=== PATIENT | male | born 1990 | race Caucasian/White ===

== ENCOUNTER → 2018-04-12 06:23 | Outpatient (CLI) | payer SELFPAY ==
--- NOTE | 2018-04-12 06:33 | XR_ITS ---
XR chest CHP 1V HISTORY: ITS.REASON: FOR 3 M ORDERING PHYSICIAN: Referral Provider, PATIENT AGE: 27 years COMPARISON: 08/28/2016 FINDINGS: The cardiomediastinal silhouette and pulmonary vascularity are within normal limits. The lungs are clear without infiltrates, suspicious nodules, or pleural effusions. No acute bony abnormalities. There is mild dextroscoliosis of the mid to lower thoracic spine IMPRESSION: Negative chest, no acute finding Mild mid thoracic scoliosis not significantly changed
== END ==
DX: Z02.9 Encounter for administrative examinations, unspecified (principal)
CPT/HCPCS: 71045

== ENCOUNTER → 2019-03-05 14:16 | Outpatient (CLI) | payer BC, SELFPAY ==
[2019-03-05 14:54] LABS: Basophils # 0.1 K/mm3 (0-0.2); Basophils % 0.8 % (0.1-2.0); Eosinophils # 0.5 K/mm3 (0.0-0.4); Eosinophils % 7.8 % (0.1-12.0); Hematocrit 46.2 % (42.0-52.0); Hemoglobin 14.7 g/dL (14.1-18.0); Lymphocytes # 1.6 K/mm3 (0.7-4.5); Lymphocytes % 24.3 % (10-50); Mean Corpuscular HGB Conc 31.9 g/dL (31.8-35.4); Mean Corpuscular Hemoglobin 25.7 pg (27.0-31.2); Mean Corpuscular Volume 80.6 fl (80-94); Mean Platelet Volume 7.4 fl (7.4-10.4); Monocytes # 0.5 K/mm3 (0.1-1.0); Monocytes % 7.2 % (1.7-9.3); Neutrophils % 59.9 % (37.0-80.0); Platelet Count 265 K/mm3 (142-424); Red Blood Count 5.73 M/mm3 (4.60-6.20); Red Cell Distribution Width 15.6 % (11.5-17.5); White Blood Count 6.7 K/mm3 (4.8-10.8)
[2019-03-05 15:43] LABS: Alanine Aminotransferase 22 U/L (12-78); Albumin Level 3.9 gm/dL (3.4-5.0); Albumin/Globulin Ratio 1.3 (1.1-1.8); Alkaline Phosphatase 90 U/L (46-116); Anion Gap 11.1 mEq/L (5-15); Aspartate Amino Transferase 8 U/L (15-37); Bilirubin,Total 0.2 mg/dL (0.2-1.0); Blood Urea Nitrogen 12 mg/dL (7-18); Carbon Dioxide 29 mmol/L (21.0-32.0); Chloride 103 mmol/L (98-107); Chol/HDL Ratio 3.4 (1-3.5); Cholesterol 154 mg/dL (140-200); Creatinine,Serum 0.82 mg/dL (0.70-1.30); Estimated Glomerular Filt Rate 112 ml/min (>60); GFR (African American) 135 ML/MIN (>60); Globulin 3.1 gm/dl (1.3-3.2); Glucose 114 mg/dL (74-106); HDL Cholesterol 45 mg/dL (27-67); LDL Cholesterol 86 mg/dL (0-130); Potassium 4.1 mmoL/L (3.5-5.1); Sodium 139 mmol/L (136-145); T4 (Thyroxine) 5.1 ug/dl (4.7-13.3); Thyroid Stimulating Hormone 1.62 uIU/ml (0.358-3.740); Triglycerides 116 mg/dL (30-200); VLDL Cholesterol 23 mg/dL (0-40)
[2019-03-07 13:17] LABS: Vitamin D 25 Hydroxy 30.6 ng/mL (30.0-100.0)
== END ==
PROVIDERS: Visit Provider Nurse Practitioner Family
DX: F41.9 Anxiety disorder, unspecified (principal); R45.4 Irritability and anger
CPT/HCPCS: 80053; 80061; 82652; 84436; 84443; 85025

== ENCOUNTER 2020-08-16 11:29 | Emergency (ER) | payer BC, SELFPAY ==
[2020-08-16 12:40] VITALS: BP 144/82; PULSE 76; RESP 19; TEMP 36.8; O2SAT 98; BMI 26.6
--- NOTE | 2020-08-16 12:59 | HMH.EDUTC ---
[facility] [place] Clinical Impression: Exposure to COVID-19 virus Sinusitis Qualifiers: Sinusitis location: unspecified location Chronicity: unspecified Qualified Code(s): J32.9 - Chronic sinusitis, unspecified Disposition: Home, Self-Care Condition on Discharge: Good Instructions: Sinusitis, Sinus Headache, DI for COVID-19 (Suspected or Confirmed ), Coronavirus Disease 2019, Preventing the Spread of Coronavirus Discharge Instructions Additional Instructions: *Monitor Temp, Over the counter Motrin or Tylenol as directed/as needed Tylenol every 4 hours and Motrin every 6 hours (as long as your family doctor has told you that you can take it) for fever or pain. and straight to ER if unable to lower temp less than 101.0 after medication given *Warm salt water gargles may help to soothe the throat *Throat Lozenges *Warm fluids like tea with honey may help to soothe the throat *Sleep elevated *Humidifier/Vaporizer Follow up IMMEDIATELY for new or worsening symptoms or no Noticeable improvement over the next 48-72 hours. 911 for difficulty breathing or swallowing You were tested for today for COVID19 your test result should be back in the next 24-48 hours, you may call to the [facility] to see if your test results are back in the next 48 hours [phone] [facility] hours are 9am-9pm You was given a handout with instructions for Self Quarantine and Self isolation for while you wait on test results and what to do if they are positive If you are positive the Health Dept will be contacting you also Prescriptions: Azithromycin [Z-Devonte 250mg Tab] 250 mg PO DIRECTED #6 tab Transmission Status: Pending to [id number] Referrals: Isatu Cantrell PA [Primary Care Provider] - As needed Forms: Work/School Release Time of Disposition: 13:02 Medical Decision Making - Harrison Inquiry Pt receiving controlled substance: No Harrison was queried for this patient: No Vital Signs: 08/16/20 12:40 Temperature 98.2 F Temperature Source Oral Pulse Rate [Right Brachial] 76 Respiratory Rate 19 Blood Pressure [Right Arm] 144/82 H Blood Pressure Mean [Right Arm] 102 Blood Pressure Source [Right Arm] Automatic Cuff Blood Pressure Position [Right Arm] Sitting 02 Sat by Pulse Oximetry 98 Oxygen Delivery Method Room Air Orders (Tests/Meds): ORDERS Category Date Time Status Covid-19 Nasal PCR ([facility]) Routine Lab 08/16/20 12:44 [place] [facility] [place] - General Stated complaint: Sore throat, soa, headache Time Seen by Provider: 08/16/20 12:59 Mode of Arrival: Ambulatory Source of Information: Patient Limitations: No Limitations Description of Symptoms (Recalled from Triage Doc. by RN): COVID TEST D/T EXPOSURE. C/O RUNNY NOSE AND SORE THROAT HEENT Symptoms (Recalled from RN notes): Yes Resp Symptoms (Recalled from RN notes): No Skin Symptoms (Recalled from RN notes): No MS Symptoms (Recalled from RN notes): No Functional Status (Recalled from RN notes): WNL - History of Present Illness Provider Complaint: Patient states that he has been having sinus pain and pressure, sore throat, and cough along with headache State that he has been around someone that is positive for COVID States that he wasnt sure if he had a sinus infection or COVID - Related Data Previous Rx's Medication Instructions Recorded albuterol sulfate 90 mcg/actuation 1 inh INHALATION QID #8.5 g 10/24/19 aerosol inhaler levocetirizine 5 mg tablet 5 mg PO DAILY #30 tab 04/17/20 fluticasone fur. 100 mcg-umeclid 1 inh INHALATION DAILY #28 each 05/21/20 62.5 mcg-vilant 25 mcg inhalat.powder sulfamethoxazole 800 1 tab PO BID 10 Days #20 tab 06/13/20 mg-trimethoprim 160 mg tablet lamotrigine 100 mg tablet 100 mg PO BID #180 tab 06/24/20 Azithromycin [Z-Devonte 250mg Tab] 250 mg PO DIRECTED #6 tab 08/16/20 Allergies Allergy/AdvReac Type Severity Reaction Status Date / Time No Known Allergies Allergy Verified 04/17/20 09:00 - Worker's Co
[2020-08-16 13:05] VITALS: BP 144/82; PULSE 76; RESP 19; TEMP 36.8; O2SAT 98
== END 2020-08-16 13:08 | disposition home or self-care (01) ==
PROVIDERS: Emergency Provider Nurse Practitioner; PCP Physician Assistant
DX: Z20.822 Contact with and (suspected) exposure to COVID-19 (principal); J32.9 Chronic sinusitis, unspecified; J45.909 Unspecified asthma, uncomplicated; F41.8 Other specified anxiety disorders; F17.210 Nicotine dependence, cigarettes, uncomplicated
CPT/HCPCS: 99202; G0463; U0003

== ENCOUNTER → 2020-08-19 11:23 | Outpatient (CLI) | payer BC, SELFPAY ==
[2020-08-20 11:48] LABS: Covid-19 Nasal PCR Sendout P&C NEGATIVE
== END ==
PROVIDERS: PCP Physician Assistant; Visit Provider Physician Assistant
DX: Z11.52 Encounter for screening for COVID-19 (principal)
CPT/HCPCS: U0004

== ENCOUNTER → 2021-08-04 08:00 | Outpatient (CLI) | payer BC, SELFPAY ==
[2021-08-04 08:35] VITALS: PULSE 77; PULSE 79
--- NOTE | 2021-08-04 09:09 | XR_ITS ---
PROCEDURE: XR CHEST 2V CLINICAL HISTORY: SOA COMPARISON: CR CXR CHEST(2 VIEWS-NOT PORTABLE) from 08/28/2016 CR [id number] XR chest CHP 1V from 04/12/2018 FINDINGS: The cardiomediastinal silhouette and pulmonary vascularity are within normal limits. The lungs are clear without infiltrates, suspicious nodules, or pleural effusions. Minimal midthoracic curvature convex right. Straightening of thoracic kyphosis. The IMPRESSION: No acute findings. Dictated by: Titi Barnard MD 08/04/2021 12:59 Titi Barnard MD in OV 08/04/2021 12:59
== END ==
PROVIDERS: PCP Nurse Practitioner Family; Visit Provider Nurse Practitioner Family
DX: R06.02 Shortness of breath (principal)
CPT/HCPCS: 71046; 94060; 94640; 94727; 94729

== ENCOUNTER → 2021-09-20 11:03 | Outpatient (CLI) | payer BC, SELFPAY ==
[2021-09-20 11:28] LABS: Basophils # 0.1 K/mm3 (0-0.2); Basophils % 1.4 % (0.1-2.0); Eosinophils # 0.6 K/mm3 (0.0-0.4); Eosinophils % 10.1 % (0.1-12.0); Hematocrit 51.1 % (42.0-52.0); Lymphocytes # 1.7 K/mm3 (0.7-4.5); Lymphocytes % 29.1 % (10-50); Mean Corpuscular HGB Conc 33.3 g/dL (31.8-35.4); Mean Corpuscular Hemoglobin 29.6 pg (27.0-31.2); Mean Corpuscular Volume 88.9 fl (80-94); Mean Platelet Volume 7.6 fl (7.4-10.4); Monocytes # 0.4 K/mm3 (0.1-1.0); Monocytes % 6.2 % (1.7-9.3); Neutrophils # 3.1 K/mm3 (1.8-7.8); Neutrophils % 53.1 % (37.0-80.0); Platelet Count 255 K/mm3 (142-424); Red Blood Count 5.75 M/mm3 (4.60-6.20); Red Cell Distribution Width 13.3 % (11.5-17.5); White Blood Count 5.9 K/mm3 (4.8-10.8)
[2021-09-21 12:38] LABS: Alpha-1-Antitrypsin 132 mg/dL (95-164)
[2021-09-24 16:30] LABS: D001-IgE D pteronyssinus 0.75 kU/L (Class II); D002-IgE D farinae 0.42 kU/L (Class I); E072-IgE Mouse Urine 0.69 kU/L (Class II); G002-IgE Bermuda Grass <0.10 kU/L (Class 0); G006-IgE Timothy Grass 1.46 kU/L (Class III); Immunoglobulin E, Total 231 IU/mL (6-495); M001-IgE Penicillium chrysogen 0.24 kU/L (Class 0/I); M002-IgE Cladosporium herbarum 0.16 kU/L (Class 0/I); M003-IgE Aspergillus fumigatus 0.23 kU/L (Class 0/I); M006-IgE Alternaria alternata <0.10 kU/L (Class 0); T001-IgE Maple/Box Elder 0.22 kU/L (Class 0/I); T003-IgE Common Silver Birch <0.10 kU/L (Class 0); T006-IgE Cedar, Mountain <0.10 kU/L (Class 0); T007-IgE Oak, White <0.10 kU/L (Class 0); T008-IgE Elm, American <0.10 kU/L (Class 0); T010-IgE Walnut <0.10 kU/L (Class 0); T011-IgE Maple Leaf Sycamore <0.10 kU/L (Class 0); T014-IgE Cottonwood <0.10 kU/L (Class 0); T015-IgE Ash, White <0.10 kU/L (Class 0); T022-IgE Pecan, Hickory <0.10 kU/L (Class 0); T070-IgE White Mulberry <0.10 kU/L (Class 0); W001-IgE Ragweed, Short 0.51 kU/L (Class I); W011-IgE Thistle, Russian <0.10 kU/L (Class 0); W014-IgE Pigweed, Common <0.10 kU/L (Class 0); W018-IgE Sheep Sorrel <0.10 kU/L (Class 0)
== END ==
PROVIDERS: PCP Emergency Medicine; Visit Provider Internal Medicine Pulmonary Disease
DX: J45.909 Unspecified asthma, uncomplicated (principal); J44.9 Chronic obstructive pulmonary disease, unspecified
CPT/HCPCS: 36415; 82103; 82785; 85025; 86003

== ENCOUNTER 2023-01-29 11:02 | Emergency (ER) | payer BC, SELFPAY ==
[2023-01-29 11:15] VITALS: BP 129/80; PULSE 64; RESP 19; TEMP 36.4; O2SAT 96; BMI 26.3
[2023-01-29 11:22] LABS: Apearance,Urine Clear (Clear); Bilirubin,Urine Negative (Negative); Blood, Urine Negative (Negative); Color,Urine Yellow (Yellow); Glucose,Urine (UA) Negative (Negative); Ketones,Urine Negative (Negative); PH,Urine 6.5 (5.0-8.5); Protein,Urine Negative (Negative); Specific Gravity, Urine 1.025 (1.005-1.030); UTC Leukocyte Esterase,Urine Negative (Negative); UTC Nitrate,Urine Negative (Negative); Urobilinogen,Urine 1 EU/dl (0.2)
[2023-01-29 11:42] VITALS: BP 129/80; PULSE 64; RESP 19; TEMP 36.4; O2SAT 96
--- NOTE | 2023-01-29 11:45 | EXP.UTC ---
Discharge Plan Disposition Patient Disposition: Home, Self-Care Condition: Good Prescriptions Prescriptions: New levofloxacin 500 mg tablet 500 mg PO DAILY Qty: 10 0RF No Action bupropion HCl [Wellbutrin SR] 100 mg tablet sustained-release 12 hr 100 mg PO DAILY Qty: 30 2RF lamotrigine [Lamictal XR] 200 mg tablet extended release 24hr 200 mg PO DAILY Qty: 30 2RF sildenafil [Viagra] 50 mg tablet 50 mg PO DAILY Qty: 30 2RF albuterol sulfate 1.25 mg/3 mL solution for nebulization 1.25 mg IH QID PRN (Reason: shortness of breath or wheezing) Qty: 90 0RF Trelegy Ellipta 100-62.5-25 mcg blister with device See Rx Instructions .ROUTE .COMPLEX Qty: 60 12RF Dose Instruction: INHALE 1 PUFF BY MOUTH EVERY DAY Rx Instructions: INHALE 1 PUFF BY MOUTH EVERY DAY levocetirizine 5 mg tablet See Rx Instructions .ROUTE .COMPLEX Qty: 30 2RF Dose Instruction: TAKE ONE TABLET BY MOUTH EVERY DAY AT BEDTIME Rx Instructions: TAKE ONE TABLET BY MOUTH EVERY DAY AT BEDTIME albuterol sulfate [Ventolin HFA] 90 mcg/actuation HFA aerosol inhaler 2 puff INHALATION Q4-6H PRN (Reason: Asthma ) 90 Days Qty: 8.5 3RF Referrals Follow up/Referrals: Isatu Cantrell PA [Primary Care Provider] - See instructions Michael Bolivar MD [Staff Physician] - See instructions Silas Elliott MD [Referring] - See instructions Activity Restrictions/Add. Instructions Additional Instructions/Restrictions: GO straight to ER if you start experiencing worsening of pain, swelling, discoloration, abdominal pain and severe sudden pain in testicle or any other life threatening symptoms Follow up with your Family Doctor You was given order for Ultra Sound Call in the morning to schedule the procedure and follow up with your Family Doctor as soon as possible to get results and further treatment Follow up with Urology you was given a name and number or you may try to find your own Clinical Impressions Clinical Impression: Pain in right testicle Stand Alone Forms Stand Alone Forms: Work/School Release Instructions Patient Instructions: DI for Epididymitis, DI for Testicular Pain Discharge ED Provider: Jada Vieira [facility] [place] General Stated complaint: swelling in male area Mode of Arrival: Ambulatory Source of Information: Patient Limitations: No Limitations Time Seen by Provider: 01/29/23 11:45 Description of Symptoms (Recalled from Triage Doc. by RN): PATIENT C/O SWELLING AND SOME PAIN TO TESTICLES X 2 DAYS. DENIES ANY PROBLEMS WITH URINATION HEENT Symptoms (Recalled from RN notes): No Resp Symptoms (Recalled from RN notes): No Skin Symptoms (Recalled from RN notes): No MS Symptoms (Recalled from RN notes): No Functional Status (Recalled from RN notes): WNL History of Present Illness Provider Complaint: Patient states that he has been having pain and mild swelling in his right testicle for the last couple of days States that he hasnt had any burning with urination or urinary frequency, hasnt noticed any discharge, denies known injury Denies abdominal pain and denies fever States that area just feels tender and hurts with walking Able to sit comfortably at this time Related Data Previous Rx's Medication Instructions Recorded albuterol sulfate 1.25 mg/3 mL 1.25 mg (3 mL) inhalation QID PRN 03/23/22 solution for nebulization shortness of breath or wheezing #90 mL bupropion HCl 100 mg tablet,12 hr 100 mg PO DAILY #30 ea 06/17/22 sustained-release (Wellbutrin SR) fluticasone fur. 100 mcg-umeclid See Rx Instructions .Route 07/15/22 62.5 mcg-vilant 25 mcg .COMPLEX #60 blisters inhalat.powder (Trelegy Ellipta) lamotrigine 200 mg tablet,extended 200 mg PO DAILY #30 tabs 07/21/22 release 24 hr (Lamictal XR) sildenafil 50 mg tablet (Viagra) 50 mg PO DAILY #30 tabs 07/21/22 levocetirizine 5 mg tablet See Rx Instructions .Route 08/18/22 .COMPLEX #30 tabs albuterol sulfate 90 mcg/actuation 2 p
[2023-02-01 06:54] LABS: Neisseria gonorrhoeae, NAA Negative (Negative)
== END 2023-01-29 12:23 | disposition home or self-care (01) ==
PROVIDERS: Emergency Provider Nurse Practitioner; PCP Physician Assistant
DX: N50.811 Right testicular pain (principal); J44.9 Chronic obstructive pulmonary disease, unspecified; J45.909 Unspecified asthma, uncomplicated; F39 Unspecified mood [affective] disorder; F41.9 Anxiety disorder, unspecified; Z87.891 Personal history of nicotine dependence
CPT/HCPCS: 81003; 87086; 87491; 87591; 99212; 99214; G0463

== ENCOUNTER → 2023-01-30 12:12 | Outpatient (CLI) | payer BC, SELFPAY ==
--- NOTE | 2023-01-30 12:16 | US_ITS ---
FINAL REPORT TECHNIQUE: Ultrasound images of the testicles were obtained bilaterally. Color Doppler images were obtained. CLINICAL HISTORY: rt test pain FINDINGS: The right testicle measures 4.7 cm in length. There is normal blood flow. No testicular mass is seen. The right epididymis is enlarged and heterogeneous . There is a palpable area in the inferior right hemiscrotum corresponding to enlarged epididymal tail and consistent with epididymitis. The left testicle measures 4.9 cm in length. There is no testicular mass. Normal blood flow is identified. The epididymis is enlarged. IMPRESSION: Bilateral epididymitis. Reviewed, Interpreted and Dictated by Jayson Fernandes III, MD Transcribed by Domi Eaton Authenticated and [facility]
== END ==
LOC: RAD 12:13
PROVIDERS: PCP Physician Assistant; Visit Provider Physician Assistant
DX: N50.811 Right testicular pain (principal); N50.89 Other specified disorders of the male genital organs
CPT/HCPCS: 76870

== ENCOUNTER → 2023-03-14 11:26 | Outpatient (CLI) | payer BC, SELFPAY | LOC: COVID.OUT 11:26 | PROVIDERS: PCP Physician Assistant; Visit Provider Emergency Medicine | DX: U07.1 COVID-19 (principal) | CPT/HCPCS: 87635 ==

== ENCOUNTER → 2023-04-12 12:00 | Outpatient (CLI) | payer BC, SELFPAY ==
[2023-04-12 19:17] LABS: Alanine Aminotransferase 26 U/L (12-78); Albumin Level 4.7 g/dl (3.5-5.0); Albumin/Globulin Ratio 1.7 (1.1-1.8); Alkaline Phosphatase 95 U/L (38-126); Aspartate Amino Transferase 25 U/L (17-59); Bilirubin,Total 0.4 mg/dl (0.2-1.3); Blood Urea Nitrogen 12 mg/dl (9-20); Calcium 8.9 mg/dl (8.4-10.2); Carbon Dioxide 25 mmol/L (22.0-30.0); Chloride 102 mmol/L (98-107); Cholesterol 184 mg/dl (140-200); Estimated Glomerular Filt Rate 112 ml/min (>60); GFR (African American) 136 ML/MIN (>60); Globulin 2.8 g/dL (1.3-3.2); Glucose 68 mg/dl (74-100); HDL Cholesterol 46 mg/dl (40-60); Sodium 140 mmol/L (136-145); Total Protein,Serum 7.5 g/dl (6.3-8.2); Triglycerides 190 mg/dl (30-150); VLDL Cholesterol 38 mg/dL (0-40)
[2023-04-12 19:29] LABS: Direct LDL Cholesterol 99.95 mg/dL (100-129)
[2023-04-12 19:40] LABS: 25-OH Vitamin D, Total 44.8 ng/mL (30-100)
[2023-04-12 19:48] LABS: Basophils % 0.6 % (0.1-2.0); Eosinophils # 1.2 K/mm3 (0.0-0.4); Eosinophils % 16.9 % (0.1-12.0); Hematocrit 47.7 % (42.0-52.0); Hemoglobin 16.1 g/dL (14.1-18.0); Lymphocytes # 2.3 K/mm3 (0.7-4.5); Lymphocytes % 32.6 % (10-50); Mean Corpuscular HGB Conc 33.8 g/dL (31.8-35.4); Mean Corpuscular Hemoglobin 29.3 pg (27.0-31.2); Mean Corpuscular Volume 86.7 fl (80-94); Mean Platelet Volume 8.6 fl (7.4-10.4); Monocytes # 0.4 K/mm3 (0.1-1.0); Monocytes % 6.1 % (1.7-9.3); Neutrophils # 3.2 K/mm3 (1.8-7.8); Neutrophils % 43.8 % (37.0-80.0); Platelet Count 220 K/mm3 (142-424); Red Cell Distribution Width 13.2 % (11.5-17.5); Thyroid Stimulating Hormone 1.14 uIU/mL (0.465-4.68); White Blood Count 7.2 K/mm3 (4.8-10.8)
[2023-04-12 20:08] LABS: Vitamin B12 312 pg/mL (239-931)
[2023-04-14 11:08] LABS: Testosterone,Total 201 ng/dL (264-916)
== END ==
LOC: LAB.DROPOF 04-13 00:14
PROVIDERS: PCP Physician Assistant; Visit Provider Physician Assistant
DX: R53.83 Other fatigue (principal); E29.1 Testicular hypofunction
CPT/HCPCS: 80053; 80061; 82306; 82607; 84403; 84443; 85025

== ENCOUNTER 2024-04-24 09:42 | Outpatient (CLI) | payer BC, SELFPAY ==
[2024-04-24 18:34] LABS: Basophils # 0.1 K/mm3 (0-0.2); Basophils % 0.7 % (0.1-2.0); Eosinophils # 0.3 K/mm3 (0.0-0.4); Eosinophils % 2.7 % (0.1-12.0); Hematocrit 52.5 % (42.0-52.0); Hemoglobin 17.4 g/dL (14.1-18.0); Lymphocytes # 1.4 K/mm3 (0.7-4.5); Mean Corpuscular HGB Conc 33.2 g/dL (31.8-35.4); Mean Corpuscular Hemoglobin 29.8 pg (27.0-31.2); Mean Corpuscular Volume 89.8 fl (80-94); Mean Platelet Volume 8.4 fl (7.4-10.4); Monocytes # 0.6 K/mm3 (0.1-1.0); Monocytes % 5.7 % (1.7-9.3); Neutrophils # 8.3 K/mm3 (1.8-7.8); Neutrophils % 77.9 % (37.0-80.0); Platelet Count 251 K/mm3 (142-424); Red Blood Count 5.84 M/mm3 (4.60-6.20); Red Cell Distribution Width 13.9 % (11.5-17.5); White Blood Count 10.6 K/mm3 (4.8-10.8)
[2024-04-24 19:00] LABS: Alanine Aminotransferase 35 U/L (12-78); Albumin Level 4.3 g/dl (3.5-5.0); Albumin/Globulin Ratio 1.4 (1.1-1.8); Alkaline Phosphatase 76 U/L (38-126); Anion Gap 12.4 mEq/L (5-15); Aspartate Amino Transferase 28 U/L (17-59); Bilirubin,Total 0.7 mg/dl (0.2-1.3); Blood Urea Nitrogen 11 mg/dl (9-20); Calcium 9.3 mg/dl (8.4-10.2); Carbon Dioxide 30 mmol/L (22.0-30.0); Chloride 102 mmol/L (98-107); Chol/HDL Ratio 4.8 (1-3.5); Cholesterol 208 mg/dl (140-200); Estimated Glomerular Filt Rate 97 ml/min (>60); GFR (African American) 118 ML/MIN (>60); Globulin 3.1 g/dL (1.3-3.2); Glucose 103 mg/dl (74-100); HDL Cholesterol 43 mg/dl (40-60); Potassium 4.4 mmoL/L (3.5-5.1); Sodium 140 mmol/L (136-145); Total Protein,Serum 7.4 g/dl (6.3-8.2); Triglycerides 126 mg/dl (30-150); VLDL Cholesterol 25 mg/dL (0-40)
[2024-04-24 19:12] LABS: Direct LDL Cholesterol 130.87 mg/dL (100-129)
[2024-04-24 19:25] LABS: 25-OH Vitamin D, Total 34.1 ng/mL (30-100)
[2024-05-04 21:20] LABS: Testosterone, Total, LC/MS 87 ng/dL (.)
== END 2024-04-24 23:59 | disposition home or self-care (01) ==
LOC: LAB.DROPOF 04-25 09:43
PROVIDERS: PCP Nurse Practitioner Family; Visit Provider Nurse Practitioner Family
DX: J44.9 Chronic obstructive pulmonary disease, unspecified (principal)
CPT/HCPCS: 80050; 80053; 80061; 82306; 84403; 84443; 85025

== ENCOUNTER 2024-09-17 16:25 | Outpatient (CLI) | payer BC, SELFPAY ==
[2024-09-19 08:17] LABS: Testosterone,Total 250 ng/dL (264-916)
== END 2024-09-17 23:59 | disposition home or self-care (01) ==
LOC: LAB.DROPOF 09-18 09:40
PROVIDERS: PCP Nurse Practitioner Family; Visit Provider Nurse Practitioner Family
DX: R40.0 Somnolence (principal); R79.89 Other specified abnormal findings of blood chemistry; F52.4 Premature ejaculation
CPT/HCPCS: 84403

== ENCOUNTER 2024-11-26 07:47 | Inpatient (IN) | payer BC, SELFPAY ==
[2024-11-26] VITALS (19 sets, daily range): BP systolic 108–151; BP diastolic 67–96; PULSE 50–90; RESP 13–22; TEMP 36.6–36.8; O2SAT 90–100; BMI 28.8; BMI 28.5
--- NOTE | 2024-11-26 07:48 | ECG_ITS ---
APPROVED REPORT Exam: Resting ECG HR:67 bpm ECG Measurements Heart Rate 67 AXES HI 105 P 46 QRSd 125 QRS 81 QT 358 T 72 QTc 374 Conclusion SINUS RHYTHM WITH SHORT HI INTERVAL MODERATE INTRAVENTRICULAR CONDUCTION DELAY [110+ ms QRS DURATION] EARLY REPOLARIZATION [ST ELEVATION WITH NORMALLY INFLECTED T-WAVE] MODERATE ST DEPRESSION [0.05+ mV ST DEPRESSION] ABNORMAL ECG Inferior lead ST elevation with peaked T waves in the lateral and inferior leads Electronically signed by : TALITA MIRANDA, 11/26/2024 22:21:56
--- NOTE | 2024-11-26 08:02 | PC.NURSE ---
on phone with flory
--- NOTE | 2024-11-26 08:04 | PC.NURSE ---
DR WINTERS AT BEDSIDE
--- NOTE | 2024-11-26 08:05 | ECG_ITS ---
APPROVED REPORT Exam: Resting ECG HR:59 bpm ECG Measurements Heart Rate [address] 153 P 55 QRSd 109 QRS 64 QT 370 T 56 QTc 369 Conclusion SINUS BRADYCARDIA MARKED ST ELEVATION, CONSIDER INFERIOR INJURY [MARKED ST ELEVATION W/O NORMALLY INFLECTED T-WAVE IN II/aVF] ACUTE AL Electronically signed by : TALITA MIRANDA, 11/26/2024 22:21:24
[2024-11-26 08:07] LABS: Basophils % 0.6 % (0.1-2.0); Eosinophils # 0.2 Kmm3 (0.0-0.4); Eosinophils % 2.8 % (0.1-12.0); Hematocrit 47.1 % (42.0-52.0); Hemoglobin 15.9 g/dL (14.1-18.0); Lymphocytes # 1.9 K/mm3 (0.7-4.5); Lymphocytes % 27.8 % (10-50); Mean Corpuscular HGB Conc 33.8 g/dL (31.8-35.4); Mean Corpuscular Hemoglobin 29.3 pg (27.0-31.2); Mean Corpuscular Volume 86.9 fl (80-94); Mean Platelet Volume 9.6 fl (7.4-10.4); Monocytes # 0.9 K/mm3 (0.1-1.0); Monocytes % 12.7 % (1.7-9.3); Neutrophils # 3.8 K/mm3 (1.8-7.8); Neutrophils % 55.8 % (37.0-80.0); Nucleated Red Blood Cells # 0 10^3/uL; Nucleated Red Blood Cells % 0 %; Platelet Count 239 K/mm3 (142-424); Red Blood Count 5.42 M/mm3 (4.60-6.20); Red Cell Distribution Width 12.6 % (11.5-17.5); Red Cell Distribution Width-SD 39.8 fL; White Blood Count 6.8 K/mm3 (4.8-10.8)
--- NOTE | 2024-11-26 08:09 | PC.NURSE ---
PT IN GOWN, GROIN AND WRIST CLIPPED, PT ON ZOLL. CONSENT SIGNED
--- NOTE | 2024-11-26 08:11 | PC.NURSE ---
jonathan molina at bedside at this time.
--- NOTE | 2024-11-26 08:11 | PC.NURSE ---
REGRINDER OPERATOR AT BEDSIDE
--- NOTE | 2024-11-26 08:12 | PC.NURSE ---
pt going to pharmacy laboratory technician via stretcher with joy leavitt.
[2024-11-26] MEDS: ASPIRIN 81MG CHEWABLE TABLET 324 MG PO (08:13)
--- NOTE | 2024-11-26 08:14 | IR_ITS ---
APPROVED REPORT Patient Location: Outpatient PROCEDURES Selective coronary angiogram INDICATION Acute ST elevation myocardial infarction Informed consent was obtained prior to the procedure. COMPLICATIONS none Estimated Blood Loss: less than 10ml TECHNIQUE One percent lidocaine used to anesthetize the right anterior aspect of the wrist. The right radial artery was accessed via the Seldinger technique. A 6 Lebanese sheath was placed in the right radial artery. 2.5 mg of Verapamil, 800 mcg of nitroglycerin, 1mg Lidocaine and 5000 U Heparin were given through the arterial sheath. The 6 Lebanese JL 3 guide catheter was also used to perform left heart catheterization, left ventriculogram and selective coronary angiogram. At the end of the procedure the sheath was removed good hemostasis was achieved using Traclet band, patient was transferred to the postop holding area in stable condition. ANGIOGRAPHIC RESULTS The left main artery Normal The left anterior descending artery Normal The circumflex artery Normal The right coronary artery Dominant normal The LANDIN ventriculogram reveals Not performed The left ventricular end-diastolic pressure Not measured IMPRESSION Normal coronary arteries Suspect myocarditis/pericarditis PLAN 1. Obtain formal echocardiogram 2. Recommend admission with telemetry monitoring overnight 3. Supportive care Electronically signed by : Nirmal Salinas MD 11/26/2024 08:51:04
--- NOTE | 2024-11-26 08:15 | CA_ITS ---
APPROVED REPORT EXAM: Limited 2D Echocardiogram Senior Systems Architect: Shanti Leon, RCS, RVS Ht: 5 ft 9 in Wt: 195lbs BSA: 2.04 BP: 140/90 mmHg Rhythm: 90 Indications: STEMI, ST elevation, CP, Arm pain 2D Dimensions IVSd 0.96 cm LVEF (Visual) 53.00 % PWd 0.96 cm LVDd 5.11 cm LVDs 3.71 cm M-Mode Dimensions LVDd 5.11 cm (3.5-5.7) LVDs 3.71 cm (3.5-5.7) IVSd 0.96 cm (0.6-1.1) PWd 0.96 cm (0.6-1.1) FS 27.40% Other Information Study Quality: Technically Difficult Conclusion This is a limited TTE to evaluate for LV systolic function. Limited windows are obtained. Technically difficult study. The left ventricle is normal in size. There is normal LV wall thickness. There is low normal LV systolic function. LVEF is 50%. There is no evidence of pericardial effusion. Electronically signed by : Annamaria Shetty MD 11/26/2024 10:27:45
[2024-11-26 08:16] LABS: Alanine Aminotransferase 34 U/L (12-78); Albumin Level 4.2 g/dl (3.5-5.0); Albumin/Globulin Ratio 1.3 (1.1-1.8); Alkaline Phosphatase 80 U/L (38-126); Anion Gap 8.2 mEq/L (5-15); Aspartate Amino Transferase 45 U/L (17-59); Bilirubin,Total 0.4 mg/dl (0.2-1.3); Blood Urea Nitrogen 10 mg/dl (9-20); Carbon Dioxide 30 mmol/L (22.0-30.0); Chloride 106 mmol/L (98-107); Creatinine Clearance Estimated 163 mL/min (50-200); Estimated Glomerular Filt Rate 111 ml/min (>60); GFR (African American) 134 ML/MIN (>60); Globulin 3.3 g/dL (1.3-3.2); Glucose 128 mg/dl (74-100); Lipase 40 U/L (23-300); Potassium 4.2 mmoL/L (3.5-5.1); Sodium 140 mmol/L (136-145); Total Protein,Serum 7.5 g/dl (6.3-8.2)
--- NOTE | 2024-11-26 08:16 | PC.NURSE ---
on phone with hospitalist
--- NOTE | 2024-11-26 08:19 | ED_ITS ---
Discharge Plan Disposition Patient Disposition: Admitted Condition: Fair Clinical Impressions Clinical Impression: STEMI (ST elevation myocardial infarction) Qualifiers: Involved coronary artery: unspecified coronary artery Qualified Code(s): I21.3 - ST elevation (STEMI) myocardial infarction of unspecified site Discharge ED Provider: Tila Alejandra HPI General Chief Complaint: Chest Pain Stated Complaint: Chest Pain Time Seen by Provider: 11/26/24 07:52 Mode of Arrival: Ambulatory Source of Information: Patient Description of Symptoms (Recalled from ER Triage Doc. by RN): Patient with the complaint of feeling uncomfortable in his chest that started yesterday. States that it did go away for a brief moment yesterday and was back today. States that he went to the [facility] yesterday for a sore throat and was put on a Zpack. History of Present Illness HPI narrative: This patient is a 34-year-old male with a history of asthma, mood disorder on Lamictal, prior tobacco abuse (smokes when drinks, quit 2 years ago per ) presented to the emergency department for evaluation with concern for chest pain. Patient reports that he had a sore throat yesterday, for which she was evaluated at [facility]. Strep swab was negative, but he was prescribed azithromycin. He notes that yesterday evening at work, he started having some chest tightness/pressure. It went away by the time he got home and he was doing okay until this morning when he got to work. Then, he started having some chest tightness/pressure again. He notes early history of cardiac issues in his family with his dad having triple bypass and heart attack in his 40s. His dad is also a diabetic. He denies any known history of diabetes in himself. No other concerns or complaints such as cough, fever, shortness of breath, abdominal pain, nausea, vomiting, diaphoresis, or presyncope. Related Data Home Medications ?Medication ?Instructions ?Recorded ?Confirmed albuterol sulfate 90 mcg/actuation 2 puff inhalation Q4HP PRN 11/26/24 11/26/24 aerosol inhaler Shortness Of Breath montelukast 10 mg tablet 10 mg PO HS 11/26/24 11/26/24 Previous Rx's ?Medication ?Instructions ?Recorded budesonide 160 mcg-glycopyr 9 2 inh inhalation BID #10.7 grams 07/16/24 mcg-formot 4.8 mcg/actuation HFA inhaler (Breztri Aerosphere) testosterone cypionate 200 mg/mL 200 mg IM Q2W #4 mL 11/13/24 intramuscular oil (Depo-Testosterone) amoxicillin 875 mg tablet 875 mg PO BID 10 days #20 tabs 11/25/24 fluticasone propionate 50 2 spray intranasal DAILY #16 grams 11/25/24 mcg/actuation nasal spray,suspension (Flonase Allergy Relief) Allergies Allergy/AdvReac Type Severity Reaction Status Date / Time No Known Allergies Allergy Verified 11/25/24 15:24 [facility] Disclaimer: The information contained in this section may have been updated after the patient was seen, as this information can be updated by other users. Medical History Pharyngitis Anxiety Tobacco dependence COPD (chronic obstructive pulmonary disease) Mood disorder Asthma Social History (Updated 11/26/24 @ 09:28 by Melina Tanner RN) Smoking Status: Former smoker tobacco type: cigarettes packs per day: 1 alcohol intake: current alcohol intake frequency: holidays/special occasions only substance use type: denies use current occupational status: employed Travel in the last 8 weeks: None household members: family housing: house Have you lived/traveled outside US in past 30 days?: No Contact w/someone who lives/traveled outside US past 30 days?: No Exposure to someone with infectious disease in past 14 days?: No Do you have a fever (greater than 100.4 F or 38 C)?: No Have you tested positive for COVID-19: No Exposed to someone with COVID-19 in past 14 days?: No Do you have a sore throat?: No Do you have a cough?: No Do you have any weakness?: No Do you have any diarrhea?: No Are you experiencing any unusual bleeding?: No Do you have any muscle aches/pain?: No Do you have any abdominal pain?: No Are you experiencing loss of taste or smell?: No Other Medical History Have you received the Flu Vaccine for this season: No Have you received the Pneumonia Vaccine: No ROS Obtained: Yes All systems reviewed & no additional complaints except as documented Physical Exam General General appearance: alert and in no apparent distress Head Head exam: atraumatic and normocephalic Eye Eye exam: Present normal appearance, PERRL and EOMI ENT ENT exam: Present normal exam, normal oropharynx, mucous membranes moist and normal external ear exam Neck Neck exam: Present normal inspection, full ROM and trachea midline; Absent tenderness Chest Chest inspection: Present normal inspection and symmetric chest wall rise; Absent tenderness Respiratory Respiratory exam: Present normal lung sounds bilaterally; Absent respiratory distress, wheezes, stridor or accessory muscle use Cardiovascular Cardiovascular exam: Present regular rate and normal rhythm Abdominal Exam Abdominal exam: Present soft; Absent distention, tenderness or guarding Extremities Exam Extremities exam: Present normal inspection, full ROM and normal capillary refill; Absent tenderness or edema Back Exam Back exam: Present normal inspection and full ROM; Absent tenderness Neurological Exam Neurological exam: Present alert, oriented X3, CN II-XII intact and normal gait; Absent motor sensory deficit Psychiatric Psychiatric exam: Present normal affect and normal mood Skin Skin exam: Present warm and dry HEART Score HEART Score HEART Score assessment performed?: Yes History (anamnesis): Highly suspicious ECG: Significant ST-deviation Age: <45 years Risk factors: No known risk factors Troponin: > 3x normal limit HEART Score: 6 Critical Care Critical Care Time Critical Care Time: Yes Attestation: On 11/26/24, the high probability of a clinically significant, sudden or life threatening deterioration of the following system(s) required my full and direct attention, intervention and personal management. The time I documented below is in addition to time spent performing reported procedures but includes the following listed in this critical care notation. Total Time Total Critical Care Time: 15 Medical Decision Making [place] Inquiry Pt receiving controlled substance: No Vital Signs Vital Signs: 11/26/24 07:51 11/26/24 08:00 11/26/24 08:08 Temperature 98.2 F Temperature Source Oral Pulse Rate 55 L 82 Pulse Rate [Radial] 68 Respiratory Rate 18 13 22 Blood Pressure 134/78 151/74 H Blood Pressure [Right Arm] 140/96 H Blood Pressure Mean [Right Arm] 110 Blood Pressure Source Blood Pressure Source [Right Arm] Automatic Cuff Blood Pressure Position Blood Pressure Position [Right Arm] Sitting 02 Sat by Pulse Oximetry 99 100 98 Oxygen Delivery Method Room Air Room Air Room Air 11/26/24 08:15 Temperature 98.2 F Temperature Source Oral Pulse Rate 68 Pulse Rate [Radial] Respiratory Rate 18 Blood Pressure 140/96 H Blood Pressure [Right Arm] Blood Pressure Mean [Right Arm] Blood Pressure Source Automatic Cuff Blood Pressure Source [Right Arm] Blood Pressure Position Sitting Blood Pressure Position [Right Arm] 02 Sat by Pulse Oximetry Oxygen Delivery Method Room Air Lab Data Labs: Lab Results 11/26/24 07:55: WBC 6.8, RBC 5.42, Hgb 15.9, Hct 47.1, MCV 86.9, MCH 29.3, MCHC 33.8, RDW 12.6, Plt Count 239, MPV 9.6, Neut % (Auto) 55.8, Lymph % (Auto) 27.8, [place] % (Auto) 12.7 H, Eos % (Auto) 2.8, Baso % (Auto) 0.6, Neut # (Auto) 3.8, Lymph # (Auto) 1.9, [place] # (Auto) 0.9, Eos # (Auto) 0.2, Baso # (Auto) 0.0, ESR 1 11/26/24 07:55: ESR 6, D-Dimer 0.57 H, Sodium 140, Potassium 4.2, Chloride 106, Carbon Dioxide 30, Anion Gap 8.2, BUN 10, Creatinine 0.80, Estimated Creat Clear 163, Estimated GFR 111, Est GFR ( Amer) 134, Glucose 128 H, Calcium 9.0, Total Bilirubin 0.4, AST 45, ALT 34, Alkaline Phosphatase 80, Troponin I 2.86 H, C-Reactive Protein 2.9 11/26/24 07:55: C-Reactive Protein 2.9, Total Protein 7.5, Albumin 4.2, Globulin 3.3 H, Albumin/Globulin Ratio 1.3, Lipase 40, Free T4 1.05, HCV Ab FABIO w/Rflx PCR Qn Negative 11/26/24 07:55 11/26/24 07:55 Response Orders (Tests/Meds): ED MEDICATIONS Generic Name Dose Route Start Last Admin Trade Name Freq PRN Reason Stop Dose Admin Acetaminophen 650 mg 11/26/24 13:43 Acetaminophen 325mg Tab PO 12/26/24 13:42 Q4HP PRN Fever or Mild Pain (1-3) Diazepam 5 mg 11/26/24 08:11 Diazepam 5mg Tablet PO 11/26/24 20:11 ONCE PRN Anxiety Enoxaparin Sodium 40 mg 11/27/24 09:00 Enoxaparin 40mg/0.4ml Syringe SUBCUT 12/27/24 08:59 DAILY DINO Fentanyl Citrate 50 mcg 11/26/24 08:11 11/26/24 08:49 Fentanyl 100mcg/2ml Vial IV 11/26/24 20:11 100 mcg Q3MINP PRN Administration Sedation Fentanyl Citrate 25 mcg 11/26/24 08:11 Fentanyl 100mcg/2ml Vial IV 11/26/24 20:11 Q3MINP PRN Sedation Flumazenil 0.2 mg 11/26/24 08:11 Flumazenil 0.1mg/Ml 5ml Vial IV 11/26/24 20:11 NEEDED PRN Sedation Sodium Chloride 1,000 mls @ 25 mls/hr 11/26/24 08:15 11/26/24 08:29 Sod Chloride 0.9% 500ml Bag IV 11/27/24 08:11 25 mls/hr .Q25H DINO Administration Lorazepam 1 mg 11/26/24 08:11 Lorazepam 2mg/Ml Vial IV 11/26/24 20:11 ONCE PRN Anxiety Midazolam HCl 1 mg 11/26/24 08:11 Midazolam 2mg/2ml Vial IV 11/26/24 20:11 Q3MINP PRN Sedation Midazolam HCl 1 mg 11/26/24 08:11 11/26/24 08:49 Midazolam Hcl 1mg/Ml 5ml Vial IV 11/26/24 20:11 5 mg Q3MINP PRN Administration Sedation Naloxone HCl 0.4 mg 11/26/24 08:11 Naloxone 0.4mg/Ml Vial IV 11/26/24 20:11 Q5MINP PRN Decreased Respirations Ondansetron HCl 4 mg 11/26/24 08:11 Ondansetron 4mg/2ml Vial IV 11/26/24 20:11 NEEDED PRN Nausea Ondansetron HCl 4 mg 11/26/24 13:43 Ondansetron 4mg/2ml Vial IV 12/26/24 13:42 Q8HP PRN Nausea Promethazine HCl 25 mg 11/26/24 08:11 Promethazine Hcl 25mg/Ml 1ml Vial IV 11/26/24 20:11 NEEDED PRN Nausea And Vomiting Sodium Chloride 10 ml 11/26/24 08:11 Sodium Chloride 0.9% 10ml Vial IV 12/26/24 08:10 NEEDED PRN to Dilute Lorazepam inj Discontinued Medications Generic Name Dose Route Start Last Admin Trade Name Daveq PRN Reason Stop Dose Admin Aspirin 324 mg 11/26/24 08:03 11/26/24 08:13 Aspirin 81mg Chewable Tablet PO 11/26/24 08:04 324 mg ONCE ONE Administration Diphenhydramine HCl 50 mg 11/26/24 08:11 11/26/24 08:25 Diphenhydramine 50mg/Ml Vial IV 11/26/24 08:12 50 mg ONCE ONE Administration Heparin Sodium (Porcine) 5,000 unit 11/26/24 08:11 11/26/24 08:26 Heparin 1,000 Units/Ml 10ml Vial (Chemical Sales Representative) IV 11/26/24 12:11 5,000 unit NEEDED PRN Administration Emergency Box Embalmer/Funeral Director Heparin Sodium/Sodium Chloride 3,000 unit 11/26/24 08:11 11/26/24 08:29 Heparin 1,000 Units/500ml Ns (Chemical Sales Representative) IV 11/26/24 08:12 3,000 unit ONCE ONE Administration Hydralazine HCl 20 mg 11/26/24 08:11 Hydralazine 20mg/Ml Vial IV 11/26/24 12:11 ONCE PRN sbp>160 Adenosine 180 mg/ Sodium 90 mls @ 477.635 mls/hr 11/26/24 08:11 Chloride IV 11/26/24 12:11 ONCE PRN fractional flow reserve 180 MCG/KG/MIN Adenosine 90 mg/ Sodium 90 mls @ 955.271 mls/hr 11/26/24 08:11 Chloride IV 11/26/24 12:11 ONCE PRN fractional flow reserve 180 MCG/KG/MIN Iopamidol 40 ml 11/26/24 09:30 11/26/24 09:31 Iopamidol-370 (76%);100ml Bottle IV 11/26/24 09:31 40 ml ONCE ONE Administration Labetalol HCl 20 mg 11/26/24 08:11 Labetalol 20mg/4ml Syringe IV 11/26/24 12:11 ONCE PRN sbp>160 Lidocaine HCl 10 ml 11/26/24 08:11 11/26/24 08:29 Lidocaine 1% 10ml Mdv IJ 11/26/24 08:12 10 ml ONCE ONE Administration Lidocaine HCl 10 ml 11/26/24 08:11 11/26/24 09:41 Lidocaine 1% 5ml Pf Vial IJ 11/26/24 08:12 Not Given ONCE ONE Morphine Sulfate 4 mg 11/26/24 08:11 11/26/24 09:44 Morphine 4mg/Ml Syringe IV 11/26/24 08:12 Not Given ONCE ONE Nitroglycerin 800 mcg 11/26/24 08:11 11/26/24 08:29 Nitroglycerin 800mcg/8ml Syr (Chemical Sales Representative) IA 11/26/24 12:11 800 mcg NEEDED PRN Administration Emergency Box Embalmer/Funeral Director Protamine Sulfate 50 mg 11/26/24 08:11 Protamine Sulfate 50mg/5ml Vial (Chemical Sales Representative) IV 11/26/24 12:11 ONCE PRN act>200 Sodium Chloride 25 ml 11/26/24 08:11 11/26/24 09:41 Sodium Chloride 0.9% 25ml Bag IV 11/26/24 08:12 Not Given ONCE ONE Verapamil HCl 2.5 mg 11/26/24 08:11 11/26/24 08:26 Verapamil 2.5mg/Ml 2ml Vial IV 11/26/24 08:12 2.5 mg ONCE ONE Administration ORDERS Category Date Time Status Cardiology Consult [Consult to Cardiology] [CONS] Cons 11/26/24 08:03 Active Routine CA echo limited Stat Exams 11/26/24 08:15 Completed CRP [C-Reactive Protein] Stat Lab 11/26/24 07:55 Completed Complete Blood Count Auto Diff Stat Lab 11/26/24 07:55 Completed Comprehensive Metabolic Panel Stat Lab 11/26/24 07:55 Completed D-Dimer Stat Lab 11/26/24 07:55 Completed ESR [Erythrocyte Sedimentation Rate] Stat Lab 11/26/24 07:55 Completed HIV Combo Stat Lab 11/26/24 07:55 Received Hepatitis C Ab Qual. W/ RFX Stat Lab 11/26/24 07:55 Completed Lipase Stat Lab 11/26/24 07:55 Completed Trop I [Troponin I] Stat Lab 11/26/24 07:55 Completed UDS [Drug Screen,Urine] Stat Lab 11/26/24 12:00 Completed ECG Data Tracing #1: Attestation: I reviewed this ECG and interpreted as documented below: ECG Narrative: Normal sinus rhythm with a ventricular to [address] changes concerning for benign early repolarization versus pericarditis/myocarditis, but changes are more pronounced in leads II, III, and aVF. Questionable subtle reciprocal change in aVL, so I did share with Dr. Salinas with cardiology who recommended repeat EKG ECG initial impression date: 11/26/24 ECG initial impression time: 07:59 Tracing #2: Attestation: I reviewed this ECG and interpreted as documented below: ECG Narrative: Sinus bradycardia with a ventricular to [address] elevations in leads II, III, and aVF with concern for STEMI. Normal intervals. Chemical Sales Representative activated ECG initial impression date: 11/26/24 ECG initial impression time: 08:05 MDM Narrative Medical Decision Narrative: In summary, this patient is a 34-year-old male presenting to the Emergency Department for evaluation of chest pain. Differential diagnoses considered include but are not limited to pericarditis, myocarditis, ACS, PE, asthma exacerbation, pneumonia, pleurisy. Ruling out the most morbid conditions drove assessment. It should be noted patient's history includes prior history of tobacco use, history of asthma, mood disorder which may or may not be at goal therapy. He also has family history of early cardiac issues. This complicates all aspects of care by increasing patient's risk for morbidity. I reviewed patient's past medical records and noted PCP evaluations for maintenance health as well as UTC evaluation yesterday as detailed in HPI for sore throat. On exam, the patient is lying in bed in no acute distress. He is mildly hypertensive with systolics in the 140s on initial assessment, but otherwise vital signs are normal. He has no increased work of breathing with normal lung sounds. EKG obtained upon arrival demonstrated ST changes most pronounced in leads II, III, and aVF. I did share this with Dr. Salinas with cardiology who advised that he thought it could be myocarditis versus ischemic change but recommended repeat EKG to further assess. Repeat EKG obtained demonstrates more pronounced ST changes in leads II, III, and aVF. Given this, Chemical Sales Representative was activated. Patient was loaded with aspirin. Heparin and Brilinta were not given in the emergency department per Dr. Salinas's recommendations. Labs were sent which were not resulted at time of transport to the Chemical Sales Representative. He was taken emergently to the Chemical Sales Representative in stable condition. present at bedside and updated with regard to plan of care. I called and discussed the case with the hospitalist for post-cath care.
[2024-11-26 08:21] LABS: C-Reactive Protein 2.9 mg/L (0-4)
[2024-11-26 08:22] LABS: D-Dimer 0.57 ug/mL (0.0-0.5)
[2024-11-26] MEDS: diphenhydrAMINE 50MG/ML VIAL 50 MG IV (08:25)
[2024-11-26] MEDS: HEPARIN 1,000 UNITS/ML 10ML VIAL (CATH LAB) 5000 UNIT IV (08:26)
[2024-11-26] MEDS: VERAPAMIL 2.5MG/ML 2ML VIAL 2.5 MG IV (08:26)
[2024-11-26] MEDS: NITROGLYCERIN 800MCG/8ML SYR (CATH LAB) 800 MCG IA (08:29)
[2024-11-26] MEDS: LIDOCAINE 1% 10ML MDV 10 ML IJ (08:29)
[2024-11-26] MEDS: 0.9 % SODIUM CHLORIDE 500 ML 25 ML IV (08:29)
[2024-11-26] MEDS: HEPARIN 1,000 UNITS/500ML NS (CATH LAB) 3000 UNIT IV (08:29)
[2024-11-26] MEDS: FENTANYL 100MCG/2ML VIAL 50 MCG IV (08:49)
[2024-11-26] MEDS: MIDAZOLAM HCL 1MG/ML 5ML VIAL 1 MG IV (08:49)
--- NOTE | 2024-11-26 08:51 | HMH.PHAINT1 ---
Pharmacy Intervention Comments: MEDICATION RECONCILIATION COMPLETED ON PATIENT USING EXTERNAL FILL HISTORY FROM PHARMACY. -[facility], ÓSCARD
[2024-11-26 08:56] LABS: Troponin I 2.86 ng/ml (0.00-0.034)
[2024-11-26 09:10] LABS: Erythrocyte Sedimentation Rate 1 mm/hr (0-15)
[2024-11-26 09:14] LABS: Hepatitis C Ab Qual. W/ RFX NEGATIVE (Negative)
[2024-11-26] MEDS: IOPAMIDOL-370 (76%);100ML BOTTLE 40 ML IV (09:31)
--- NOTE | 2024-11-26 09:47 | EXP.CARD.CON ---
History of Present Illness History of Present Illness Consult date: 11/26/24 Requesting physician: Regan Phelps Consult reason: chest pain Chief complaint: STEMI Additional Medical History:: 1. Asthma 2. Low testosterone, on replacement 3. Mood disorder A. On lamictal 4. Occasional smoker/drinker, reportedly quit 2022 History of present illness: This patient is a 34-year-old male with a history of asthma, mood disorder on Lamictal, prior tobacco abuse (smokes when drinks, quit 2 years ago per ) presented to the emergency department for evaluation with concern for chest pain. Patient reports that he had a sore throat yesterday, for which she was evaluated at [facility]. Strep swab was negative, but he was prescribed azithromycin. He notes that yesterday evening at work, he started having some chest tightness/pressure. It went away by the time he got home and he was doing okay until this morning when he got to work. Then, he started having some chest tightness/pressure again. He notes early history of cardiac issues in his family with his dad having triple bypass and heart attack in his 40s. His dad is also a diabetic. He denies any known history of diabetes in himself. No other concerns or complaints such as cough, fever, shortness of breath, abdominal pain, nausea, vomiting, diaphoresis, or presyncope. The above per Dr. Alejandra Events as noted above confirmed with patient and . No history of diabetes, hypertension or hyperlipidemia treatment. Family history pertinent for father who had early coronary artery disease in his 40s requiring bypass. He is diabetic. EKG today showed sinus rhythm with ST elevation in the inferior leads consistent with STEMI. Patient was taken urgently to the cardiac Hide Curer at which time coronaries noted to be normal. Suspicion for myocarditis or pericarditis. [facility] Disclaimer: The information contained in this section may have been updated after the patient was seen, as this information can be updated by other users. Medical History Pharyngitis Anxiety Tobacco dependence COPD (chronic obstructive pulmonary disease) Mood disorder Asthma Social History (Updated 11/26/24 @ 09:28 by Melina Tanner RN) Smoking Status: Former smoker tobacco type: cigarettes packs per day: 1 alcohol intake: current alcohol intake frequency: holidays/special occasions only substance use type: denies use current occupational status: employed Travel in the last 8 weeks: None household members: family housing: house Have you lived/traveled outside US in past 30 days?: No Contact w/someone who lives/traveled outside US past 30 days?: No Exposure to someone with infectious disease in past 14 days?: No Do you have a fever (greater than 100.4 F or 38 C)?: No Have you tested positive for COVID-19: No Exposed to someone with COVID-19 in past 14 days?: No Do you have a sore throat?: No Do you have a cough?: No Do you have any weakness?: No Do you have any diarrhea?: No Are you experiencing any unusual bleeding?: No Do you have any muscle aches/pain?: No Do you have any abdominal pain?: No Are you experiencing loss of taste or smell?: No Review of Systems Review of Systems Review of systems:: pertinent systems reviewed and negative unless documented below *Cardiovascular Cardiovascular: Reports chest pain *Respiratory Respiratory: Denies cough Exam Data for Last 24 hours Vital signs and Labs for Last 24 Hours: Temp Pulse Resp BP Pulse Ox O2 Del Method 98 F 68 20 126/84 96 Room Air 11/26/24 08:55 11/26/24 09:11 11/26/24 09:11 11/26/24 09:11 11/26/24 09:11 11/26/24 09:11 Laboratory Results - last 24 hr 11/26/24 07:55: WBC 6.8, RBC 5.42, Hgb 15.9, Hct 47.1, MCV 86.9, MCH 29.3, MCHC 33.8, RDW 12.6, Plt Count 239, MPV 9.6, Neut % (Auto) 55.8, Lymph % (Auto) 27.8, [place] % (Auto) 12.7 H, Eos % (Auto) 2.8, Baso % (Auto) 0.6, Neut # (Auto) 3.8, Lymph # (Auto) 1.9, [place] # (Auto) 0.9, Eos # (Auto) 0.2, Baso # (Auto) 0.0, ESR 1, D-Dimer 0.57 H, Sodium 140, Potassium 4.2, Chloride 106, Carbon Dioxide 30, Anion Gap 8.2, BUN 10, Creatinine 0.80, Estimated Creat Clear 163, Estimated GFR 111, Est GFR ( Amer) 134, Glucose 128 H, Calcium 9.0, Total Bilirubin 0.4, AST 45, ALT 34, Alkaline Phosphatase 80, Troponin I 2.86 H, C-Reactive Protein 2.9, Total Protein 7.5, Albumin 4.2, Globulin 3.3 H, Albumin/Globulin Ratio 1.3, Lipase 40, HCV Ab FBAIO w/Rflx PCR Qn Negative I & O for Last 24 hours: Intake & Output 11/23/24 11/24/24 11/25/24 11/26/24 11:59 11:59 11:59 11:59 Weight 192 lb 14.4 oz Constitutional Constitutional: mild distress *Routine Respiratory Exam Respiratory: Present CTA bilaterally *Routine Cardiovascular Exam Cardiovascular: Present RRR Meds Home Medications and Allergies Home Medications ?Medication ?Instructions ?Recorded ?Confirmed ?Type budesonide 160 mcg-glycopyr 9 2 inh inhalation BID #10.7 grams 07/16/24 11/26/24 Rx mcg-formot 4.8 mcg/actuation HFA inhaler (Breztri Aerosphere) testosterone cypionate 200 mg/mL 200 mg IM Q2W #4 mL 11/13/24 11/26/24 Rx intramuscular oil (Depo-Testosterone) amoxicillin 875 mg tablet 875 mg PO BID 10 days #20 tabs 11/25/24 11/26/24 Rx fluticasone propionate 50 2 spray intranasal DAILY #16 grams 11/25/24 11/26/24 Rx mcg/actuation nasal spray,suspension (Flonase Allergy Relief) albuterol sulfate 90 mcg/actuation 2 puff inhalation Q4HP PRN 11/26/24 11/26/24 History aerosol inhaler Shortness Of Breath montelukast 10 mg tablet 10 mg PO HS 11/26/24 11/26/24 History New Prescriptions to Start Prescriptions: Allergies Allergy/AdvReac Type Severity Reaction Status Date / Time No Known Allergies Allergy Verified 11/25/24 15:24 Assessment and Plan *Assessment and plan (1) STEMI (ST elevation myocardial infarction): Status: Acute Qualifiers: Involved coronary artery: unspecified coronary artery Qualified Code(s): I21.3 - ST elevation (STEMI) myocardial infarction of unspecified site Category: Medical Code(s): I21.3 - ST elevation (STEMI) myocardial infarction of unspecified site (2) Low testosterone in male: Status: Acute Category: Medical Code(s): R79.89 - Other specified abnormal findings of blood chemistry (3) Asthma: Status: Chronic Qualifiers: Asthma complication type: uncomplicated Asthma persistence: persistent Asthma severity: moderate Qualified Code(s): J45.40 - Moderate persistent asthma, uncomplicated Category: Medical Code(s): J45.909 - Unspecified asthma, uncomplicated (4) Mood disorder: Status: Chronic Category: Medical Code(s): F39 - Unspecified mood [affective] disorder Plan 1. STEMI with inferior ST segment elevation and elevated troponin of 2.86 -C showed normal coronary arteries. Concern for myocarditis/pericarditis -check echo -proceed with cardiac MRI today 2. History of asthma -On Singulair and inhaler 3. History of mood disorder -on Lamictal 4. Low testosterone -on replacement Proceed with cardiac MRI in AM.
--- NOTE | 2024-11-26 11:03 | HMH.ITSTN ---
Patient's cardiac MRI is going to be done tomorrow. Rescheduled due to prior sedation, patient would not be able to give consent for MRI contrast and patient's ability to stay alert during exam. Spoke with Elliott Farah about these concerns and he was okay with exam being done tomorrow.
[2024-11-26 11:04] LABS: C-Reactive Protein 2.9 mg/L (0-4)
[2024-11-26 11:44] LABS: Erythrocyte Sedimentation Rate 6 mm/hr (0-15)
[2024-11-26 12:17] LABS: Amphetamine/Metha Screen,Urine Negative ng/ml (<1000); Benzodiazepines Screen,Urine Positive ng/ml (<200)
[2024-11-26 12:18] LABS: Barbiturates Screen,Urine Negative ng/ml (<200); Cannabinoid Screen,Urine Positive ng/ml (<50)
[2024-11-26 12:19] LABS: Cocaine Screen,Urine Negative ng/ml (<300)
[2024-11-26 12:20] LABS: Methadone Screen,Urine Negative ng/ml (<300); Opiate Screen,Urine Negative ng/ml (<300)
[2024-11-26 12:21] LABS: Phencyclidine Screen,Urine Negative ng/ml (<25)
--- NOTE | 2024-11-26 13:42 | P.HP_ITS ---
History of Present Illness *Admission Date: 11/26/24 *Reason for visit:: Chest pain *History of present illness: Gennaro Ma is a 34-year-old male with a medical history significant for asthma, anxiety/depression, low testosterone who presents with 2-day onset of worsening chest pain. Patient states he had chest pressure yesterday after eating a meal which is not normal for him, but he does have intermittent acid reflux. He was also evaluated at [facility] for sore throat and was prescribed amoxicillin. Patient again started having chest pressure this morning with radiation to left shoulder, at which point rushed patient to the hospital. Initial EKG had nonspecific ST wave changes, but repeat EKG showed inferior STEMI in leads II, III and aVF. Dr. Salinas was consulted and Online Program Coordinator was activated, s/p [facility] with normal coronaries. Troponin 2.86. Dr. Salinas recommended admission for further evaluation and management. [facility] Disclaimer: The information contained in this section may have been updated after the patient was seen, as this information can be updated by other users. Medical History Pharyngitis Anxiety Tobacco dependence COPD (chronic obstructive pulmonary disease) Mood disorder Asthma Social History (Updated 11/26/24 @ 09:28 by Melina Tanner RN) Smoking Status: Former smoker tobacco type: cigarettes packs per day: 1 alcohol intake: current alcohol intake frequency: holidays/special occasions only substance use type: denies use current occupational status: employed Travel in the last 8 weeks: None household members: family housing: house Have you lived/traveled outside [place] in past 30 days?: No Contact w/someone who lives/traveled outside US past 30 days?: No Exposure to someone with infectious disease in past 14 days?: No Do you have a fever (greater than 100.4 F or 38 C)?: No Have you tested positive for COVID-19: No Exposed to someone with COVID-19 in past 14 days?: No Do you have a sore throat?: No Do you have a cough?: No Do you have any weakness?: No Do you have any diarrhea?: No Are you experiencing any unusual bleeding?: No Do you have any muscle aches/pain?: No Do you have any abdominal pain?: No Are you experiencing loss of taste or smell?: No Other Medical History Have you received the Flu Vaccine for this season: No Have you received the Pneumonia Vaccine: No Meds Home Medications and Allergies Home Medications ?Medication ?Instructions ?Recorded ?Confirmed ?Type budesonide 160 mcg-glycopyr 9 2 inh inhalation BID #10.7 grams 07/16/24 11/26/24 Rx mcg-formot 4.8 mcg/actuation HFA inhaler (Breztri Aerosphere) testosterone cypionate 200 mg/mL 200 mg IM Q2W #4 mL 11/13/24 11/26/24 Rx intramuscular oil (Depo-Testosterone) amoxicillin 875 mg tablet 875 mg PO BID 10 days #20 tabs 11/25/24 11/26/24 Rx fluticasone propionate 50 2 spray intranasal DAILY #16 grams 11/25/24 11/26/24 Rx mcg/actuation nasal spray,suspension (Flonase Allergy Relief) albuterol sulfate 90 mcg/actuation 2 puff inhalation Q4HP PRN 11/26/24 11/26/24 History aerosol inhaler Shortness Of Breath montelukast 10 mg tablet 10 mg PO HS 11/26/24 11/26/24 History New Prescriptions to Start Prescriptions: Allergies Allergy/AdvReac Type Severity Reaction Status Date / Time No Known Allergies Allergy Verified 11/25/24 15:24 Exam Data for Last 24 hours Vital signs and Labs for Last 24 Hours: Temp Pulse Resp BP Pulse Ox O2 Del Method 98 F 72 18 125/75 97 Room Air 11/26/24 08:55 11/26/24 12:15 11/26/24 12:15 11/26/24 12:15 11/26/24 12:15 11/26/24 12:15 Laboratory Results - last 24 hr 11/26/24 07:55: WBC 6.8, RBC 5.42, Hgb 15.9, Hct 47.1, MCV 86.9, MCH 29.3, MCHC 33.8, RDW 12.6, Plt Count 239, MPV 9.6, Neut % (Auto) 55.8, Lymph % (Auto) 27.8, [place] % (Auto) 12.7 H, Eos % (Auto) 2.8, Baso % (Auto) 0.6, Neut # (Auto) 3.8, Lymph # (Auto) 1.9, [place] # (Auto) 0.9, Eos # (Auto) 0.2, Baso # (Auto) 0.0, ESR 1 11/26/24 07:55: ESR 6, D-Dimer 0.57 H, Sodium 140, Potassium 4.2, Chloride 106, Carbon Dioxide 30, Anion Gap 8.2, BUN 10, Creatinine 0.80, Estimated Creat Clear 163, Estimated GFR 111, Est GFR ( Amer) 134, Glucose 128 H, Calcium 9.0, Total Bilirubin 0.4, AST 45, ALT 34, Alkaline Phosphatase 80, Troponin I 2.86 H, C-Reactive Protein 2.9 11/26/24 07:55: C-Reactive Protein 2.9, Total Protein 7.5, Albumin 4.2, Globulin 3.3 H, Albumin/Globulin Ratio 1.3, Lipase 40, HCV Ab FABIO w/Rflx PCR Qn Negative 11/26/24 12:00: Urine Opiates Screen Negative, Urine Methadone Screen Negative, Ur Barbituates Screen Negative, Ur Phencyclidine Scrn Negative, Ur Amphetamines Screen Negative, U Benzodiazepines Scrn Positive H, Urine Cocaine Screen Negative, U Marijuana (THC) Screen Positive H I & O for Last 24 hours: Intake & Output 11/23/24 11/24/24 11/25/24 11/26/24 23:59 23:59 23:59 23:59 Weight 87.498 kg Constitutional Constitutional: no acute distress *Routine HEENT Exam Head: Present normocephalic Eye: Present EOMI and PERRL ENT: Present mucous membranes moist *Routine Neck Exam Neck: Present supple; Absent lymphadenopathy *Routine Respiratory Exam Respiratory: Present CTA bilaterally *Routine Cardiovascular Exam Cardiovascular: Present RRR *Routine Abdominal Exam Abdominal: Present soft and normoactive bowel sounds; Absent tenderness *Routine Rectal Exam Rectal:: deferred *Routine Genitalia Exam Genitalia:: deferred *Routine Extremities Exam Extremities: Absent cyanosis, clubbing or edema *Routine Skin Exam Skin: Present warm; Absent rash *Routine Neurological Exam Neurological: Present alert and oriented X3 Assessment and Plan *Assessment and plan (1) STEMI (ST elevation myocardial infarction): Status: Acute Qualifiers: Involved coronary artery: unspecified coronary artery Qualified Code(s): I21.3 - ST elevation (STEMI) myocardial infarction of unspecified site Category: Medical Code(s): I21.3 - ST elevation (STEMI) myocardial infarction of unspecified site Plan Gennaro Ma is a 34-year-old male with a medical history significant for asthma, anxiety/depression, low testosterone who presents with 2-day onset of worsening chest pain. Patient states he had chest pressure yesterday after eating a meal which is not normal for him, but he does have intermittent acid reflux. He was also evaluated at [facility] for sore throat and was prescribed amoxicillin. Patient again started having chest pressure this morning with radiation to left shoulder, at which point rushed patient to the hospital. Initial EKG had nonspecific ST wave changes, but repeat EKG showed inferior STEMI in leads II, III and aVF. Dr. Salinas was consulted and Online Program Coordinator was activated, s/p [facility] with normal coronaries. Troponin 2.86. Dr. Salinas recomm ended admission for further evaluation and management. #Chest pain #STEMI, [place] #Left ventricular dysfunction ? Presented with progressive chest pressure, radiation to left shoulder. EKG with inferior STEMI, troponin 2.86. ? Cardiology consulted, s/p [facility] on 11/26/2024 with normal coronaries. ? Limited ECHO revealed low normal LVEF 50% without pericardial effusion. ? With an elevated troponin, chest pain was likely of cardiac origin. There is suspicion of mild/pericarditis given concomitant acute viral symptoms. ESR, CRP normal however. ? TSH normal, LDL 130. UDS positive for THC, benzos but latter given in the Online Program Coordinator. ? Follow-up full respiratory panel. ? Follow-up cardiac MRI at 10:30 AM tomorrow. Cardiology advised holding off on colchicine until cardiac MRI is complete. ? Follow-up OLGA panel. #Asthma ? Continue home Breztri, montelukast. ? Former smoker. Patient has been told that he has COPD, follow-up alpha-1 antitrypsin protein level. #Low testosterone ? Follows with PCP for IM testosterone repletion every 2 weeks. #Anxiety ? UDS positive for THC. Had been prescribed Lamictal in September, no refills since then. ? Continue follow-ups with PCP. Full code DVT prophylaxis: Lovenox 40 mg.
[2024-11-26 14:28] LABS: Free T4 (Free Thyroxine) 1.05 ng/dl (0.78-2.19)
[2024-11-26 14:43] LABS: Thyroid Stimulating Hormone 1.56 uIU/mL (0.465-4.68)
[2024-11-26 15:56] LABS: Adenovirus,PCR Not Detected (NotDetected); Bordetella Pertussis Not Detected (NotDetected); Chlamydophila Pneumoniae, PCR Not Detected (NotDetected); Coronavirus 229E Not Detected (NotDetected); Coronavirus NL63 Not Detected (NotDetected); Coronavirus OC43 Not Detected (NotDetected); Coronovirus HKU1,PCR Not Detected (NotDetected); Human Metapneumovirus Not Detected (NotDetected); Influenza A, PCR Not Detected (NotDetected); Influenza AH1, 2009 Not Detected (NotDetected); Influenza AH1, PCR Not Detected (NotDetected); Influenza AH3,PCR Not Detected (NotDetected); Influenza B, PCR Not Detected (NotDetected); Mycoplasma Pneumoniae, PCR Not Detected (NotDetected); Parainfluenza 1, PCR Not Detected (NotDetected); Parainfluenza 2, PCR Not Detected (NotDetected); Parainfluenza 3, PCR Not Detected (NotDetected); Parainfluenza 4, PCR Not Detected (NotDetected); Respiratory Syncytial Virus Not Detected (NotDetected); Rhinovirus/Enterovirus Not Detected (NotDetected)
--- NOTE | 2024-11-26 17:42 | PC.NURSE ---
Pt is A&Ox4. Vital signs stable tolerating room air. Pt had a heart cath today with no stents placed. Right radial pressure band has been off since 1300. Dressing over radial site is C/D/I. No drainage or signs of bleeding. No complaints of chest pain. Plan is for a cardiac MRI at 10:30 tomorrow. Pt is sitting up in bed comfortably with no further complaints voiced at this time. Call light within reach.
[2024-11-26 21:02] LABS: Coronavirus 19, PCR Detected (NotDetected)
--- NOTE | 2024-11-26 21:42 | ECG_ITS ---
APPROVED REPORT Exam: Resting ECG HR:73 bpm ECG Measurements Heart Rate 73 AXES MD 126 P 24 QRSd 115 QRS 64 QT 354 T 34 QTc 379 Conclusion SINUS RHYTHM MODERATE INTRAVENTRICULAR CONDUCTION DELAY [110+ ms QRS DURATION] ST ELEVATION, CONSIDER INFERIOR INJURY [MARKED ST ELEVATION W/O NORMALLY INFLECTED T-WAVE IN II/aVF] ACUTE NM UNCONFIRMED REPORT Electronically signed by : Dirk Kaminski MD 11/27/2024 08:22:04
[2024-11-26] MEDS: MONTELUKAST SODIUM 10MG TAB 10 MG PO (21:55)
[2024-11-26] MEDS: MORPHINE 2MG/ML SYRINGE 2 MG IV (21:56)
[2024-11-27] VITALS: BP 133/72; PULSE 78; PULSE 80; RESP 16; TEMP 36.6; O2SAT 97
[2024-11-27 04:00] VITALS: BP 115/67; PULSE 68; PULSE 70; RESP 16; TEMP 36.4; O2SAT 96; BMI 28.1
--- NOTE | 2024-11-27 04:53 | PC.NURSE ---
v/s, ox4. at bedside. Pt c/o chest discomfort towards the beginning of shift. Provider notified, see notes and orders. After receiving one time dose of morphine, pt stated he felt better. Cardiac MRI pending for today around 1030. Plan of care ongoing.
--- NOTE | 2024-11-27 06:00 | MR_ITS ---
APPROVED REPORT Hospice Bereavement Coordinator: CLINICAL INDICATION Recent COVID infection, chest pain, elevated troponin, abnormal EKG. Normal LHC. Evaluation for myocarditis. TECHNIQUE Image Acquisition: Cardiac magnetic resonance (CMR) was performed on Siemens Espree MRI 1.5T scanner. Software platform sequences were performed using the Siemens [employer] MR B19 platform. A set of three-plane, low-resolution, large motuh-po-jqon localizers were initially acquired. Then axial, coronal, sagittal TrueFISP, as well as axial HASTE images, were obtained. These were followed by gated TrueFISP breathold cinematic sequences obtained in the short axis with 8 mm slices and 2 mm gaps, 2-chamber (vertical long axis), 3-chamber, 4-chamber (horizontal long axis). A bolus of contrast was injected intravenously with first-pass sequences obtained in the short axis and four-chamber planes. After approximately 10 minutes, a TI vice president mission integration sequence was performed to determine the optimal TI time. Using the optimized TI time, delayed contrast enhancement segmented inversion???recovery TurboFLASH sequences were obtained in the short axis, 2-chamber, 3-chamber, and 4-chamber projections. 2D-velocity phase mapping was performed. Functional parameters were calculated by offline analysis on an independent workstation ([employer] Platform, CVIPrenova). Contrast: ProHance??? (Gadoteridol) FINDINGS MORPHOLOGY AND FUNCTION Left ventricle: The left ventricle is normal in size. The indexed left ventricular end-diastolic volume (LVEDVi) is 82 ml/m2 (reference range 57-105 ml/m2 in males, 56-96 ml/m2 in females). There is mild reduction in left ventricular systolic function. There is normal left ventricular wall thickness. There is mild global hypokinesis present. There are no regional wall motion abnormalities noted. LVEF is calculated at 48.2% (reference range 57-77%). Right ventricle: The right ventricle is normal in size. The indexed right ventricular end-diastolic volume (RVEDVi) is 89 ml/m2 (reference range 61-121 ml/m2 in males, 48-112 ml/m2 in females). Normal right ventricular systolic function is present. RVEF is calculated at 41.0% (reference range 52-72% in males, 51-71% in females). Atria: The left atrium is normal in size. The maximum indexed left atrial volume is 26 ml/m2 (reference range 26-52 ml/m2 in males, 27-53 ml/m2 in females). The right atrium is normal in size. The maximum indexed right atrial volume is 23 ml/m2 (reference range 18-90 ml/m2). Aorta: The diameter of the aortic annulus is normal, measuring 23 mm (coronal view reference range 21-30 mm in males, 19-27 mm in females). The diameter of the aortic sinus is normal, measuring 31 mm (coronal view reference range 25-42 mm in males, 24-36 mm in females). The diameter of the sinotubular junction is normal, measuring 23 mm (coronal view reference range 18-32 mm in males, 18-28 mm in females). The diameters of the ascending and descending thoracic aorta are normal. Main pulmonary artery: The main pulmonary artery diameter is normal. Pericardium: The pericardial thickness is normal. The pericardial thickness measures 2.0 mm (normal < 4.0 mm). There is no pericardial effusion. VALVES The valvular morphologies in the visualized sequences appear normal. There is no significant valvular stenosis or regurgitation of the mitral, aortic, tricuspid, or pulmonic valve noted visually. Systolic anterior motion of the mitral valve is not visualized. Ratio of pulmonary to systemic flow, Qp:Qs ratio = 1.3 (normal < or = 1.2, hemodynamically significant shunt > 1.5), demonstrating no evidence of hemodynamically significant shunt. TISSUE CHARACTERIZATION Resting Perfusion: Normal myocardial blood flow at rest. No evidence of resting hypoperfusion. Myocardial Fibrosis and/or edema: Abnormal gadolinium kinetics are present. There is mixed subendocardial, mid myocardial, and epicardial patchy late gadolinium enhancement noted in the inferior LV wall. Findings are consistent with presence of patchy myocardial necrosis/scarring. T2-weighted imaging demonstrates presence of diffuse, mild myocardial edema or inflammation. OTHER No other significant findings are noted. However, this exam is focused on the cardiac structure and function. IMPRESSION Normal LV size with normal LV systolic function. LVEDVi= 82 ml/m2 and LVEF= 48.2%. Normal RV size with normal RV systolic function. RVEDVi= 89 ml/m2 and RVEF= 41.0%. No atrial enlargement. No CMR evidence of myocardial scarring, infarction, or necrosis. No evidence of myocardial edema or inflammation. Perfusion analysis demonstrates normal blood flow at rest with no evidence of resting hypoperfusion. Ratio of pulmonary to systemic flow, Qp:Qs ratio = 1.3 (normal < or = 1.2, hemodynamically significant shunt > 1.5), demonstrating no evidence of hemodynamically significant shunt. Overall, this CMR demonstrates Overall, this CMR demonstrates evidence of mild biventricular cardiomyopathy. The presence of diffuse inflammation, as well as the mixed LGE pattern of myocardial scarring or fibrosis and reduced LV systolic function meet CMR [facility] criteria for myocarditis. COMPARISON None CRITICAL RESULT None COMMUNICATION Per this written report The findings of this cardiac MR were reviewed, reported, and signed by Bird Shetty MD (Customer Advisor Specialist). Conclusion Electronically signed by : Annamaria Shetty MD 11/27/2024 23:08:39
[2024-11-27 06:31] LABS: Albumin Level 3.9 g/dl (3.5-5.0); Basophils % 0.5 % (0.1-2.0); Chloride 106 mmol/L (98-107); Eosinophils # 0.2 Kmm3 (0.0-0.4); Eosinophils % 1.9 % (0.1-12.0); Hematocrit 45.3 % (42.0-52.0); Hemoglobin 15.6 g/dL (14.1-18.0); Lymphocytes # 2.1 K/mm3 (0.7-4.5); Lymphocytes % 26.5 % (10-50); Mean Corpuscular HGB Conc 34.4 g/dL (31.8-35.4); Mean Corpuscular Hemoglobin 29.7 pg (27.0-31.2); Mean Corpuscular Volume 86.1 fl (80-94); Mean Platelet Volume 9.6 fl (7.4-10.4); Monocytes # 0.7 K/mm3 (0.1-1.0); Monocytes % 9.3 % (1.7-9.3); Neutrophils # 4.8 K/mm3 (1.8-7.8); Neutrophils % 61.5 % (37.0-80.0); Nucleated Red Blood Cells # 0 10^3/uL; Nucleated Red Blood Cells % 0 %; Platelet Count 232 K/mm3 (142-424); Potassium 3.9 mmoL/L (3.5-5.1); Red Blood Count 5.26 M/mm3 (4.60-6.20); Red Cell Distribution Width 12.5 % (11.5-17.5); Sodium 137 mmol/L (136-145); White Blood Count 7.9 K/mm3 (4.8-10.8)
[2024-11-27 06:33] LABS: Blood Urea Nitrogen 9 mg/dl (9-20); Creatinine Clearance Estimated 141 mL/min (50-200); Estimated Glomerular Filt Rate 97 ml/min (>60); GFR (African American) 117 ML/MIN (>60)
[2024-11-27 06:34] LABS: Alanine Aminotransferase 36 U/L (12-78); Albumin/Globulin Ratio 1.3 (1.1-1.8); Alkaline Phosphatase 74 U/L (38-126); Anion Gap 7.9 mEq/L (5-15); Aspartate Amino Transferase 84 U/L (17-59); Bilirubin,Total 0.5 mg/dl (0.2-1.3); Calcium 8.5 mg/dl (8.4-10.2); Carbon Dioxide 27 mmol/L (22.0-30.0); Globulin 2.9 g/dL (1.3-3.2); Glucose 108 mg/dl (74-100); Magnesium 1.9 mg/dl (1.6-2.3); Total Protein,Serum 6.8 g/dl (6.3-8.2)
[2024-11-27 08:00] VITALS: BP 127/70; PULSE 74; PULSE 80; RESP 16; TEMP 36.4; O2SAT 97
[2024-11-27] MEDS: ENOXAPARIN 40MG/0.4ML SYRINGE 40 MG SUBCUT (08:15)
--- NOTE | 2024-11-27 10:32 | P.PN_ITS ---
Subjective Subjective Date: 11/27/24 Time: 10:32 Principal diagnosis: STEMI, COVID Exam Data for Last 24 hours Vital signs and Labs for Last 24 Hours: Temp Pulse Resp BP Pulse Ox O2 Del Method 97.6 F 74 16 127/70 97 Room Air 11/27/24 08:00 11/27/24 08:00 11/27/24 08:00 11/27/24 08:00 11/27/24 08:00 11/27/24 09:00 Laboratory Results - last 24 hr 11/26/24 07:55: ESR 6, C-Reactive Protein 2.9, TSH 1.56, Free T4 1.05 11/26/24 12:00: Urine Opiates Screen Negative, Urine Methadone Screen Negative, Ur Barbituates Screen Negative, Ur Phencyclidine Scrn Negative, Ur Amphetamines Screen Negative, U Benzodiazepines Scrn Positive H, Urine Cocaine Screen Negative, U Marijuana (THC) Screen Positive H 11/26/24 15:47: Chlamy pneumoniae PCR Not detected, Adenovirus (PCR) Not detected, B. pertussis DNA (PCR) Not detected, Coronavirus OC43 (PCR) Not detected, Coronavirus HKU1 (PCR) Not detected, Coronavirus 229E (PCR) Not detected, SARS-CoV-2 (PCR) Detected A, Coronavirus NL63 (PCR) Not detected, Hum an Metapneumovir PCR Not detected, Influenza A (H1) PCR Not detected, Influ A (H1N1/09) PCR Not detected, Influenza A (H3) PCR Not detected, Influenza Type A (PCR) Not detected, Influenza Type B (PCR) Not detected, M. pneumoniae (PCR) Not detected, Parainfluenza 1 (PCR) Not detected, Parainfluenza 2 (PCR) Not detected, Parainfluenza 3 (PCR) Not detected, Parainfluenza 4 (PCR) Not detected, RSV (PCR) Not detected, Entero/Rhino (PCR) Not detected 11/27/24 06:06: WBC 7.9, RBC 5.26, Hgb 15.6, Hct 45.3, MCV 86.1, MCH 29.7, MCHC 34.4, RDW 12.5, Plt Count 232, MPV 9.6, Neut % (Auto) 61.5, Lymph % (Auto) 26.5, [place] % (Auto) 9.3, Eos % (Auto) 1.9, Baso % (Auto) 0.5, Neut # (Auto) 4.8, Lymph # (Auto) 2.1, [place] # (Auto) 0.7, Eos # (Auto) 0.2, Baso # (Auto) 0.0, Sodium 137, Potassium 3.9, Chloride 106, Carbon Dioxide 27, Anion Gap 7.9, BUN 9, Creatinine 0.90, Estimated Creat Clear 141, Estimated GFR 97, Est GFR ( Amer) 117, Glucose 108 H, Calcium 8.5, Magnesium 1.9, Total Bilirubin 0.5, AST 84 H D, ALT 36, Alkaline Phosphatase 74, Total Protein 6.8, Albumin 3.9, Globulin 2.9, Albumin/Globulin Ratio 1.3 I & O for Last 24 hours: Intake & Output 11/24/24 11/25/24 11/26/24 11/27/24 11:59 11:59 11:59 11:59 Intake Total 1070 / 1070 Output Total Balance 1069 / 1069 Weight 192 lb 14.4 oz 190 lb Progress Note: A&P Assessment and plan (1) STEMI (ST elevation myocardial infarction): Status: Acute (2) Myopericarditis: Status: Acute Assessment and Plan Assessment and Plan for All Diagnoses:: 1. STEMI with inferior ST segment elevation and elevated troponin of 2.86 -C showed normal coronary arteries. Concern for myocarditis/pericarditis -limited echo shows EF 50% with normal LV size and thickness. No pericardial effusion. -proceed with cardiac MRI today 2. History of asthma -On Singulair and inhaler 3. COVID positive -11/26/2024 4. Low testosterone -on replacement 5. History of mood disorder -on Lamictal Plan for discharge home later today after MRI. Cardiac MRI confirms myopericarditis, likely due to COVID. Due to borderline low EF (50% on echo and 48% on MRI) will start indomethacine 25 mg BID for 5 days, colchicine 0.6 mg daily for 3 months, lisinopril 2.5 mg daily and metoprolol succinate 25 mg daily. Follow up in office in one week.
[2024-11-27] MEDS: SODIUM CHLORIDE 0.9% 10ML SYR (RAD ONLY) 10 ML IV (11:23)
[2024-11-27] MEDS: GADOTERIDOL INJ 20ML SYRINGE 20 ML IV (11:23)
[2024-11-27] MEDS: SODIUM CHLORIDE 0.9% 50ML BAG 25 ML IV (11:23)
[2024-11-27 12:00] VITALS: BP 94/52; PULSE 70; PULSE 90; RESP 16; TEMP 36.8; O2SAT 97
[2024-11-27] MEDS: LISINOPRIL 2.5MG TABLET 2.5 MG PO (13:15)
[2024-11-27] MEDS: METOPROLOL SUCCINATE XL 25MG TABLET 25 MG PO (13:16)
[2024-11-27] MEDS: COLCHICINE 0.6MG TABLET 1.2 MG PO (13:16)
--- NOTE | 2024-11-27 13:50 | P.DS_ITS ---
General Admission date:: 11/26/24 Discharge date: 11/27/24 HPI HPI HPI: Gennaro Ma is a 34-year-old male with a medical history significant for asthma, anxiety/depression, low testosterone who presents with 2-day onset of worsening chest pain. Patient states he had chest pressure yesterday after eating a meal which is not normal for him, but he does have intermittent acid reflux. He was also evaluated at [facility] for sore throat and was prescribed amoxicillin. Patient again started having chest pressure this morning with radiation to left shoulder, at which point rushed patient to the hospital. Initial EKG had nonspecific ST wave changes, but repeat EKG showed inferior STEMI in leads II, III and aVF. Dr. Salinas was consulted and Hardware Sales Assistant was activated, s/p [facility] with normal coronaries. Troponin 2.86. Dr. Salinas recommended admission for further evaluation and management. Hospital Course Hospital Course Hospital Course: Gennaro Ma is a 34-year-old male with a medical history significant for asthma, anxiety/depression, low testosterone who presents with 2-day onset of worsening chest pain. Patient states he had chest pressure yesterday after eating a meal which is not normal for him, but he does have intermittent acid reflux. He was also evaluated at [facility] for sore throat and was prescribed amoxicillin. Patient again started having chest pressure this morning with radiation to left shoulder, at which point rushed patient to the hospital. Initial EKG had nonspecific ST wave changes, but repeat EKG showed inferior STEMI in leads II, III and aVF. Dr. Salinas was consulted and Hardware Sales Assistant was activated, s/p [facility] with normal coronaries. Troponin 2.86. Dr. Salinas recommended admission for further evaluation and management. Did well overnight. Cardiology evaluated in the morning. MRI obtained showing myopericarditis. Medically managed. Stable to discharge home with improvement in symptoms. Problems addressed as follows: #Chest pain #STEMI, [place] #Left ventricular dysfunction #Myopericarditis ? Presented with progressive chest pressure, radiation to left shoulder. EKG with inferior STEMI, troponin 2.86. Cardiology consulted, s/p [facility] on 11/26/2024 with normal coronaries. Limited ECHO revealed low normal LVEF 50% without pericardial effusion. Cardiology evaluated in the morning. MRI was obtained showing pericarditis. Cardiology recommended the following: Due to borderline low EF (50% on echo and 48% on MRI) will start indomethacine 25 mg BID for 5 days, colchicine 0.6 mg daily for 3 months, lisinopril 2.5 mg daily and metoprolol succinate 25 mg daily. Follow up in office in one week. Patient feeling better with no chest pain. Found to be COVID-positive on comprehensive respiratory panel. TSH normal. History of asthma: Continue Singulair and home Breztri. Stable on room air. Alpha-1 antitrypsin pending COVID positivity: No specific treatment at this time. Not on oxygen. Negative pulmonary exam #Low testosterone: Follows with PCP for IM testosterone repletion every 2 weeks. #Anxiety: UDS positive for THC. Had been prescribed Lamictal in September, no refills since then. Continue follow-ups with PCP. Total time spent on discharge 32 minutes in counseling, documentation, chart review, and direct care with patient. Exam Data for Last 24 hours Vital signs and Labs for Last 24 Hours: Temp Pulse Resp BP Pulse Ox O2 Del Method 98.2 F 70 16 94/52 L 97 Nasal Cannula 11/27/24 12:00 11/27/24 12:00 11/27/24 12:00 11/27/24 12:00 11/27/24 12:00 11/27/24 13:00 Laboratory Results - last 24 hr 11/26/24 07:55: TSH 1.56, Free T4 1.05 11/26/24 15:47: Chlamy pneumoniae PCR Not detected, Adenovirus (PCR) Not detected, B. pertussis DNA (PCR) Not detected, Coronavirus OC43 (PCR) Not detected, Coronavirus HKU1 (PCR) Not detected, Coronavirus 229E (PCR) Not detected, SARS-CoV-2 (PCR) Detected A, Coronavirus NL63 (PCR) Not detected, Human Metapneumovir PCR Not detected, Influenza A (H1) PCR Not detected, Influ A (H1N1/09) PCR Not detected, Influenza A (H3) PCR Not detected, Influenza Type A (PCR) Not detected, Influenza Type B (PCR) Not detected, M. pneumoniae (PCR) Not detected, Parainfluenza 1 (PCR) Not detected, Parainfluenza 2 (PCR) Not detected, Parainfluenza 3 (PCR) Not detected, Parainfluenza 4 (PCR) Not detected, RSV (PCR) Not detected, Entero/Rhino (PCR) Not detected 11/27/24 06:06: WBC 7.9, RBC 5.26, Hgb 15.6, Hct 45.3, MCV 86.1, MCH 29.7, MCHC 34.4, RDW 12.5, Plt Count 232, MPV 9.6, Neut % (Auto) 61.5, Lymph % (Auto) 26.5, [place] % (Auto) 9.3, Eos % (Auto) 1.9, Baso % (Auto) 0.5, Neut # (Auto) 4.8, Lymph # (Auto) 2.1, [place] # (Auto) 0.7, Eos # (Auto) 0.2, Baso # (Auto) 0.0, Sodium 137, Potassium 3.9, Chloride 106, Carbon Dioxide 27, Anion Gap 7.9, BUN 9, Creatinine 0.90, Estimated Creat Clear 141, Estimated GFR 97, Est GFR ( Amer) 117, Glucose 108 H, Calcium 8.5, Magnesium 1.9, Total Bilirubin 0.5, AST 84 H D, ALT 36, Alkaline Phosphatase 74, Total Protein 6.8, Albumin 3.9, Globulin 2.9, Albumin/Globulin Ratio 1.3 I & O for Last 24 hours: Intake & Output 11/24/24 11/25/24 11/26/24 11/27/24 23:59 23:59 23:59 23:59 Intake Total 630 / 870 680 / 680 Output Total 1 / 0 / 0 Balance 629 / 869 680 / 680 Weight 87.498 kg 86.183 kg Constitutional Constitutional: no acute distress, average body habitus and cooperative *Routine HEENT Exam Head: Present normocephalic Eye: Present EOMI and PERRL ENT: Present mucous membranes moist *Routine Neck Exam Neck: Present supple; Absent lymphadenopathy *Routine Respiratory Exam Respiratory: Present CTA bilaterally *Routine Cardiovascular Exam Cardiovascular: Present RRR *Routine Abdominal Exam Abdominal: Present soft and normoactive bowel sounds; Absent tenderness *Routine Rectal Exam Patient deferred: visual exam *Routine Exam Patient deferred: penile exam *Routine Extremities Exam Extremities: Absent cyanosis, clubbing or edema *Routine Skin Exam Skin: Present warm; Absent rash *Routine Neurological Exam Neurological: Present alert, oriented X3 and moving all extremities; Absent altered mental status Results Data Completed and Pending Labs on day of discharge: Labs from last 24 hours 11/27/24 11/26/24 11/26/24 06:06 15:47 07:55 WBC 7.9 RBC 5.26 Hgb 15.6 Hct 45.3 MCV 86.1 MCH 29.7 MCHC 34.4 RDW 12.5 Plt Count 232 MPV 9.6 Neut % (Auto) 61.5 Lymph % (Auto) 26.5 [place] % (Auto) 9.3 Eos % (Auto) 1.9 Baso % (Auto) 0.5 Neut # (Auto) 4.8 Lymph # (Auto) 2.1 [place] # (Auto) 0.7 Eos # (Auto) 0.2 Baso # (Auto) 0.0 Sodium 137 Potassium 3.9 Chloride 106 Carbon Dioxide 27 Anion Gap 7.9 BUN 9 Creatinine 0.90 Estimated Creat Clear 141 Estimated GFR 97 Est GFR ( Amer) 117 Glucose 108 H Calcium 8.5 Magnesium 1.9 Total Bilirubin 0.5 AST 84 H D ALT 36 Alkaline Phosphatase 74 Total Protein 6.8 Albumin 3.9 Globulin 2.9 Albumin/Globulin Ratio 1.3 TSH 1.56 Free T4 1.05 Chlamy pneumoniae PCR Not detected Adenovirus (PCR) Not detected B. pertussis DNA (PCR) Not detected Coronavirus OC43 (PCR) Not detected Coronavirus HKU1 (PCR) Not detected Coronavirus 229E (PCR) Not detected SARS-CoV-2 (PCR) Detected A Coronavirus NL63 (PCR) Not detected Human Metapneumovir PCR Not detected Influenza A (H1) PCR Not detected Influ A (H1N1/09) PCR Not detected Influenza A (H3) PCR Not detected Influenza Type A (PCR) Not detected Influenza Type B (PCR) Not detected M. pneumoniae (PCR) Not detected Parainfluenza 1 (PCR) Not detected Parainfluenza 2 (PCR) Not detected Parainfluenza 3 (PCR) Not detected Parainfluenza 4 (PCR) Not detected RSV (PCR) Not detected Entero/Rhino (PCR) Not detected DS: Diagnosis Discharge Diagnosis (1) STEMI (ST elevation myocardial infarction): Status: Acute Code(s): I21.3 - ST elevation (STEMI) myocardial infarction of unspecified site Qualifiers: Involved coronary artery: unspecified coronary artery Qualified Code(s): I21.3 - ST elevation (STEMI) myocardial infarction of unspecified site (2) Myopericarditis: Status: Acute Code(s): I31.9 - Disease of pericardium, unspecified Meds Home Medications and Allergies Home Medications ?Medication ?Instructions ?Recorded ?Confirmed ?Type budesonide 160 mcg-glycopyr 9 2 inh inhalation BID #10.7 grams 07/16/24 11/26/24 Rx mcg-formot 4.8 mcg/actuation HFA inhaler (Breztri Aerosphere) testosterone cypionate 200 mg/mL 200 mg IM Q2W #4 mL 11/13/24 11/26/24 Rx intramuscular oil (Depo-Testosterone) fluticasone propionate 50 2 spray intranasal DAILY #16 grams 11/25/24 11/26/24 Rx mcg/actuation nasal spray,suspension (Flonase Allergy Relief) albuterol sulfate 90 mcg/actuation 2 puff inhalation Q4HP PRN 11/26/24 11/26/24 History aerosol inhaler Shortness Of Breath montelukast 10 mg tablet 10 mg PO HS 11/26/24 11/26/24 History colchicine 0.6 mg tablet 0.6 mg PO DAILY #30 tabs 11/27/24 Rx indomethacin 25 mg capsule 25 mg PO BIDWMEAL 5 days #9 caps 11/27/24 Rx lisinopril 2.5 mg tablet 2.5 mg PO DAILY 30 days #30 tabs 11/27/24 Rx metoprolol succinate 25 mg 25 mg PO DAILY 30 days #30 tabs 11/27/24 Rx tablet,extended release 24 hr New Prescriptions to Start Prescriptions: Sanford Huang indomethacin Sanford Ordaz lisinopril Sanford Ordaz metoprolol succinate Sanford Ordaz Allergies Allergy/AdvReac Type Severity Reaction Status Date / Time No Known Allergies Allergy Verified 11/25/24 15:24 Discharge Plan Disposition Patient Disposition: Home, Self-Care Condition: Fair Discharge Order Discharge Orders: Discharge Order (Routine); Ordered 11/27/24 Ordered By: Sanford Ordaz Follow up Plan Follow up with: Randi Tierney APRN [Nurse Practitioner] - 12/05/24 1:30 pm Darryn Rios APRN [Primary Care Provider] - 12/04/24 3:40 pm Prescriptions/Medication Reconciliation: New indomethacin 25 mg Capsule 25 mg PO BIDWMEAL 5 Days Qty: 9 0RF metoprolol succinate 25 mg Tablet Extended Release 24 Hr 25 mg PO DAILY 30 Days Qty: 30 0RF lisinopril 2.5 mg Tablet 2.5 mg PO DAILY 30 Days Qty: 30 0RF colchicine 0.6 mg tablet 0.6 mg PO DAILY Qty: 30 2RF Continued fluticasone propionate [Flonase Allergy Relief] 50 mcg/actuation spray,suspension 2 spray intranasal DAILY Qty: 16 2RF Rx Instructions: administer into each nostril daily Breztri Aerosphere 160-9-4.8 mcg/actuation HFA aerosol inhaler 2 inh inhalation BID Qty: 10.7 3RF testosterone cypionate [Depo-Testosterone] 200 mg/mL oil 200 mg IM Q2W Qty: 4 0RF montelukast 10 mg tablet 10 mg PO HS albuterol sulfate 90 mcg/actuation HFA aerosol inhaler 2 puff inhalation Q4HP PRN (Reason: Shortness Of Breath) Discontinued amoxicillin 875 mg tablet 875 mg PO BID 10 Days Qty: 20 0RF Problem Reconciliation Problems Reviewed?: Yes Patient Discharge Instructions ACTIVITY: Continue current activity DIET: continue same diet Patient Instructions: DI for Heart Attack, DI for Cardiac Catheterization, DI for Surgical Site Infection Print Language: Spanish Providers Primary Care Provider: Darryn Rios Admit Provider: Regan Phelps Attending Provider: Regan Phelps
[2024-11-28 04:08] LABS: Alpha-1-Antitrypsin 173 mg/dL (95-164)
--- NOTE | 2024-11-28 09:50 | SW/DCPLANNER ---
Spoke with patient on the phone. Patient stated that he is doing good and he hasnt had any chest pain. Patient stated that he is aware of his upcoming appointments. Patient stated that he was able to get his medicine from clinic pharmacy. Patient stated that he has no concerns or questions at this time. Maxx Bowens
[2024-11-28 11:15] LABS: HIV Combo NEGATIVE (Negative)
[2024-11-28 13:10] LABS: Anti-Centromere B Antibodies <0.2 AI (0.0-0.9); Anti-DNA (DS) Ab Qn 1 IU/mL (0-9); Anti-Jo-1 <0.2 AI (0.0-0.9); Anti-Smith Antibody <0.2 AI (0.0-0.9); Antichromatin Antibodies <0.2 AI (0.0-0.9); Antiscleroderma-70 Antibodies <0.2 AI (0.0-0.9); RNP Antibodies 0.6 AI (0.0-0.9); Sjogren's Anti-SS-A <0.2 AI (0.0-0.9); Sjogren's Anti-SS-B <0.2 AI (0.0-0.9)
== END 2024-11-27 15:17 | disposition home or self-care (01) | DRG 280 ==
LOC: ER 07:54 → CATHLAB 08:14 → 2ND 08:36
PROVIDERS: Internal Medicine; Physician Assistant; Admitting Provider Student in an Organized Health Care Education/Training Program; Emergency Provider Emergency Medicine; PCP Nurse Practitioner Family; Visit Provider Student in an Organized Health Care Education/Training Program
PROC: 4A023N7 Measurement of Cardiac Sampling and Pressure, Left Heart, Percutaneous Approach (ICD-10-PCS; principal; 2024-11-26 08:10)
DX: I21.3 ST elevation (STEMI) myocardial infarction of unspecified site (principal); U07.1 COVID-19; I31.9 Disease of pericardium, unspecified; I21.B Myocardial infarction with coronary microvascular dysfunction; Z87.891 Personal history of nicotine dependence; E29.1 Testicular hypofunction; J45.909 Unspecified asthma, uncomplicated; Z79.51 Long term (current) use of inhaled steroids; Z79.899 Other long term (current) drug therapy; F41.9 Anxiety disorder, unspecified
CPT/HCPCS: 36415; 75561; 80053; 80307; 82103; 83690; 83735; 84439; 84443; 84484; 85025; 85378; 85651; 86140; 86225; 86235; 86803; 87389; 87633; 93005; 93308; 93458; 99152; 99285; A9576; C1725; C1769; J1200; J1644; J1650; J2250; J2270; J3010; Q9967

== ENCOUNTER 2025-01-15 07:31 | Outpatient (CLI) | payer BC, SELFPAY ==
--- NOTE | 2025-01-15 08:00 | CA_ITS ---
APPROVED REPORT EXAM: Comprehensive 2D, Doppler, and color-flow Echocardiogram Civil Celebrant: Louann Leon RVT Ht: 5 ft 8 in Wt: 193lbs BSA: 2.01 BP: 134/76 mmHg Indications: FATIGUE,CHEST PAIN,HX MYOPERICARDITIS 2D Dimensions Left Atrium 2.88 cm M: 3.0 - 4.0 LA Volume 27.50 mL RVID Base (AP4) 2.80 cm (M/F) 2.5-4.1 LA Volume Index 13.68 mL/m2 (M/F) 16-34 LVOT 1.98 cm (M/F) 1.5-2.5 EF AP4 59.20 % GL Strain -20.2 % M-Mode Dimensions RVDd 2.15 cm (0.9-2.6) LVDd 5.10 cm (3.5-5.7) Ao Diam 2.76 cm (2.0-3.7) LVDs 3.32 cm (3.5-5.7) IVSd 0.87 cm (0.6-1.1) PWd 0.60 cm (0.6-1.1) EF (Teich) 63.80% FS 34.90% EDV (Teich) 123.80 mL TAPSE 1.94 (<1.7) ESV (Teich) 44.80 mL LV Diastology E Decel Time 175 (160-240 msec) E/A Ratio 2.1 MED E' 10.2 (>= 7 cm/sec) E'/MED E' Ratio 6.69 (<= 14) LAT E' 11.7 (>= 10 cm/sec) E/LAT E' Ratio 5.83 (<= 14) Aortic Valve LVOT Max 88.0 (70-110 cm/s) AYDIN Index 1.75 cm2/m2 LVOT VTI 18.76 cm AoV Peak Son. 84.0 (50-130 cm/s) AO Peak GR. 3.00 mmHg AO Mean GR. 1.70 (<5 mmHg) AO VTI 16.4 (18-25 cm) AYDIN (VTI) 3.51 (2.5-4.5 cm2) Mitral Valve MV E Max Son. 68.0 (40-130 cm/s) MV A Velocity 33.0 (40-130 cm/s) E/A Ratio 2.05 MV Decel. Time 175 (160-240 ms) Left Ventricle The left ventricle is normal size. The left ventricular systolic function is low normal. There is normal left ventricular wall thickness. There is normal LV segmental wall motion. The left ventricular diastolic function is normal. LVEF is 50%. Right Ventricle The right ventricle is normal size. The right ventricular systolic function is normal. Atria The left atrium size is normal. The right atrium size is normal. There is no Doppler evidence of interatrial shunt. Aortic Valve Aortic valve opens well. There is no aortic valvular stenosis. No aortic regurgitation is present. Mitral Valve The mitral valve is normal in structure. No evidence of mitral valve stenosis. Trace mitral regurgitation. Tricuspid Valve Tricuspid valve is grossly normal in structure and function. Trace tricuspid regurgitation. There is insufficient TR jet to estimate RVSP. Pulmonic Valve The pulmonary valve is normal in structure. Trace pulmonic regurgitation. Great Vessels The aortic root is normal in size. IVC is normal in size and collapses >50% with inspiration. Pericardium There is no pericardial effusion. Other Information Study Quality: Fair Conclusion Low normal LV systolic function (LVEF 50%). No significant valvular stenosis or regurgitation. Electronically signed by : Annamaria Shetty MD 01/21/2025 15:29:21
[2025-01-15 08:19] LABS: Basophils # 0.1 K/mm3 (0-0.2); Basophils % 1.1 % (0.1-2.0); Eosinophils # 0.8 Kmm3 (0.0-0.4); Eosinophils % 13.1 % (0.1-12.0); Immature Granulocytes # 0.01 10^3uL; Immature Granulocytes % 0.2 %; Lymphocytes # 1.9 K/mm3 (0.7-4.5); Lymphocytes % 29.4 % (10-50); Mean Corpuscular Hemoglobin 29.2 pg (27.0-31.2); Mean Corpuscular Volume 85.8 fl (80-94); Mean Platelet Volume 10.2 fl (7.4-10.4); Monocytes # 0.7 K/mm3 (0.1-1.0); Monocytes % 10.3 % (1.7-9.3); Neutrophils # 2.9 K/mm3 (1.8-7.8); Neutrophils % 45.9 % (37.0-80.0); Nucleated Red Blood Cells # 0 10^3/uL; Nucleated Red Blood Cells % 0 %; Platelet Count 231 K/mm3 (142-424); Red Blood Count 5.48 M/mm3 (4.60-6.20); Red Cell Distribution Width 12.5 % (11.5-17.5); Red Cell Distribution Width-SD 38.7 fL; White Blood Count 6.3 K/mm3 (4.8-10.8)
[2025-01-15 08:58] LABS: Albumin Level 4.4 g/dl (3.5-5.0); Chloride 102 mmol/L (98-107)
[2025-01-15 08:59] LABS: Potassium 4.7 mmoL/L (3.5-5.1); Sodium 137 mmol/L (136-145)
[2025-01-15 09:01] LABS: Alanine Aminotransferase 72 U/L (12-78); Aspartate Amino Transferase 42 U/L (17-59); Bilirubin,Unconjugated 0.4 mg/dL (0.0-1.1); Blood Urea Nitrogen 16 mg/dl (9-20); Carbon Dioxide 31 mmol/L (22.0-30.0); Estimated Glomerular Filt Rate 97 ml/min (>60); GFR (African American) 117 ML/MIN (>60); Total Protein,Serum 6.8 g/dl (6.3-8.2)
[2025-01-15 09:02] LABS: Alkaline Phosphatase 71 U/L (38-126); Anion Gap 8.7 mEq/L (5-15); Bilirubin,Indirect 0.5 mg/dL (0.0-0.9); Bilirubin,Total 0.5 mg/dl (0.2-1.3); Calcium 8.9 mg/dl (8.4-10.2); Cholesterol 204 mg/dl (140-200); Glucose 109 mg/dl (74-100); Triglycerides 148 mg/dl (30-150); VLDL Cholesterol 30 mg/dL (0-40)
[2025-01-15 09:13] LABS: Direct LDL Cholesterol 123.16 mg/dL (100-129)
[2025-01-15 09:19] LABS: Free T4 (Free Thyroxine) 0.86 ng/dl (0.78-2.19)
[2025-01-15 09:33] LABS: Thyroid Stimulating Hormone 1.91 uIU/mL (0.465-4.68)
[2025-01-15 10:04] LABS: Chol/HDL Ratio 5.1 (1-3.5); HDL Cholesterol 40 mg/dl (40-60)
[2025-01-16 12:15] LABS: Cortisol,AM 14.3 ug/dL (6.2-19.4)
== END 2025-01-15 23:59 | disposition home or self-care (01) ==
LOC: RT 07:32
PROVIDERS: PCP Nurse Practitioner Family; Visit Provider Nurse Practitioner Family
DX: I21.3 ST elevation (STEMI) myocardial infarction of unspecified site (principal); R40.0 Somnolence; R79.89 Other specified abnormal findings of blood chemistry; I42.9 Cardiomyopathy, unspecified
CPT/HCPCS: 36415; 80048; 80061; 80076; 82533; 83735; 84439; 84443; 85025; 93306

== ENCOUNTER 2025-04-27 10:05 | Outpatient (CLI) | payer BC, SELFPAY ==
--- OUTSIDE RECORDS SUMMARY | 2025-03-01 16:23 | XMS_ITS | Encounter Summary ---
Author Organization [facility] Address [address] [place] [address] Care Team Providers Care Biophysics Professor Name Role Phone Jr Darryn Rios APRN Primary Care Prov ider Reason for Visit * Reason Comments Swallowed Foreign Body Encounter Details Date Type Department Care Team (Late st Contact Info) Description 03/01/2025 4:23 PM EDT - 03/01/2025 7:05 PM EDT Emergency [facility] EMERGENCY DEPARTMENT [place] [phone] Nirmal Desir MD [address] [place] [address] [place] [id number] Payal Carreon MD [address] [place] [address] [place] [id number] Foreign body in esophagus, initial encounter (Primary Dx); Dysphagia, unspecified type Discharge Disposition: Short Term Hospital (DC) Social History Tobacco Use Types Packs/Day Years Used Date Smoking Tobacco: Former Cigarettes Passive Smoke Exposure: Past Smokeless Tobacco: Current Snuff Alcohol Use Standard Drinks/Week Comments Yes 0 (1 standard drink = 0.6 oz pur e alcohol) Socially Abuse Screen Answer Date Recorded Feels Unsafe at Home or Work/School no 03/01/2025 Feels Threatened by Someone no 02/05 Does Anyone Try to Keep You From Having Contact with Others or Doing Things Outside Your Home? no 03/01/2025 Physical Signs of Abuse Present no 03/01/2025 Housing Stability Answer Date Recorded Current Living Arrangements Not on file 04/2023 Potentially Unsafe Housing Conditions Not on jens e 05/15/2023 Family and Community Support Answer Guillermo e Recorded Help with Day-to-Day Activities Not on file 05/15/2023 Lonely or Isolated Not on file 05/15/2023 Employment Answer Date Recorded Do you want help finding or keeping work or a karin b? Not on file 05/15/2023 Disabilities Answer Date Recorded Concentrating, Remembering, or Making Decisions Difficulty Not on file 05/15/2023 Doing Errands Independently Difficulty Not on fi le 05/15/2023 Education Answer Date Recorded Help with school or training? Not on file Preferred Language Not on file 05/15/2023 Sex and Gender Information Value Date Recorded Sex Assigned at Not on file Legal Sex Male 10:29 AM EDT Gender Identity Not on file Sexual Orientation Not on file documented as of this encounter Last Filed Vital Signs Vital Sign Reading Time Taken Comments Blood Pressure 115/75 03/01/2025 6:24 PM EDT Pulse 71 03/01/2025 6:24 PM EDT Temperature 36.8 C (98.2 F) 03/01/2025 6:24 PM EDT Respiratory Rate 16 03/01/2025 6:24 PM EDT Oxygen Saturation 99% 03/01/2025 6:24 PM EDT Inhaled Oxygen Concentration - - Weight 84.8 kg (187 lb) 03/01/2025 4:21 PM EDT Height 175.3 cm (5' 9 ) 03/01/2025 4:21 PM EDT Body Mass Index 27.62 03/01/2025 4:21 PM EDT documented in this encounter Functional Status * Calculated C-SSRS Risk Score (Lifetime/Recent) Answer Date of Assessment Author No Risk Indicated 03/01/2025 4:29 PM EDT Nelly Danielle RN * [place] Suicide Severity Rating Scale (Screener/Recent Self-Report) Question Answer Date of Assessment Author 1. Wish to be (Past 1 Month) No 03/01/2025 4:29 PM EDT Isaacs, Taco ie, RN 2. Non-Specific Active Suici margaret Thoughts (Past 1 Month) No 03/01/2025 4:29 PM EDT Angel Luis Isaacs, NELL 6. Suicidal Behavior (Lifetime) No 4:29 PM EDT Nelly Isaacs, NELL documented as of this encounter Medications at Time of Discharge albuterol sulfate HFA 108 (90 Base) MCG/ACT inhaler INHALE TWO PUFFS BY MOUTH EVERY 4-6 HOURS NEEDED FOR ASTHMA 02/18/2025 Breztri Aerosphere 160-9-4.8 MCG/ACT aerosol inhaler Inhale 2 puffs 2 (Two) Times a Day. 02/18/2025 cetirizine (zyrTEC) 10 MG tablet Take 1 tablet by mouth Daily. 02/18/2025 fluticasone (FLONASE) 50 MCG/ACT nasal spray 2 sprays by Each Nare route Daily. 11/25/2024 lamoTRIgine ER 200 MG tablet sustained-relea se 24 hour Take 200 mg by mouth Daily. 02/18/2025 lisinopril (PRINIVIL,ZESTR IL) 5 MG tablet Take 1 tablet by mouth Daily. 02/18/2025 montelukast (SINGULAIR) 10 MG tablet Take 1 tablet by mouth every night at bedtime. 02/18/2025 oxyCODONE-aceta minophen (PERCOCET) 5-325 MG per tablet TAKE ONE TABLET BY MOUTH THREE TIMES DAILY MAY CAUSE DROWSINESS 12/18/2024 Testosterone Cypionate (DEPOTESTOTERON E CYPIONATE) 200 MG/ML injection INJECT 1ml (200mg) INTRAMUSCULARLY EVERY 2 WEEKS 02/18/2025 documented as of this encounter Miscellaneous Notes * [facility] Provider Note - Thalia Hoskins PA-C - 03/01/2025 4:33 PM EDT Images from the original note were not included. Subjective History of Present Illness: Patient is a 34-year-old male who presented to the emergency department today with concerns of a foreign body lodged in his throat. Patient states he was eating a hot dog at around 1:45 PM when he felt it became stuck in his esophagus. Patient states it is at the level of his hyoid. Patient states he has been unable to swallow water or Mountain Dew since. Patient has had 1 episode where he spit up some pieces of a hotdog but believes he still has it stuck in his esophagus at this time. Patient states he cannot swallow solids or liquids. Patient has a hard time swallowing his saliva. Patient states for the past 2 years he has had difficulty swallowing any type of meat products. Patient states he has never been diagnosed with GERD nor seeing a apprentice embalmer for his esophageal issues. Patient denies any abdominal pain. Patient denies any constipation or diarrhea. Patient denies any fevers or chills. Patient admits to social tobacco and alcohol use. Patient states he also smokes marijuana. Nurses Notes reviewed and agree, including vitals, allergies, social history and prior medical history. REVIEW OF SYSTEMS: All systems reviewed and not pertinent unless noted. Review of Systems Constitutional: Negative for chills, diaphoresis, fatigue and fever. HENT: Positive for trouble swallowing. Negative for congestion, mouth sores, sinus pain and sore throat. Respiratory: Negative for chest tightness, shortness of breath and wheezing. Cardiovascular: Negative for chest pain and palpitations. Gastrointestinal: Positive for nausea and vomiting. Negative for abdominal pain, constipation and diarrhea. Positive foreign body sensation in throat Genitourinary: Negative for flank pain and hematuria. Musculoskeletal: Negative for back pain. Neurological: Negative for dizziness, weakness and light-headedness. All other systems reviewed and are negative. Past Medical History: Diagnosis Date COPD (chronic obstructive pulmonary disease) Myopericarditis Seasonal allergies STEMI (ST elevation myocardial infarction) Allergies: Patient has no known allergies. Past Surgical History: Procedure Laterality Date VASECTOMY Social History Socioeconomic History Marital status: Tobacco Use Smoking status: Former Types: Cigarettes Passive exposure: Past Smokeless tobacco: Current Types: Snuff Vaping Use Vaping status: Never Used Substance and Sexual Activity Alcohol use: Yes Comment: Socially Drug use: Yes Types: Marijuana Comment: Maybe once a week Sexual activity: Yes Partners: Female control/protection: Vasectomy Family History Problem Relation Age of Onset Diabetes Father Objective Physical Exam: BP 124/89 Pulse 75 Temp 97.2 ??F (36.2 ??C) (Axillary) Resp 18 Ht 175.3 cm (69 ) Wt 84.8 kg (187 lb) SpO2 98% BMI 27.62 kg/m?? Physical Exam Vitals and nursing note reviewed. Constitutional: Appearance: Normal appearance. He is well-developed and normal weight. HENT: Head: Normocephalic and atraumatic. Nose: Nose normal. Mouth/Throat: Mouth: Mucous membranes are moist. Pharynx: Oropharynx is clear. Posterior oropharyngeal erythema (Erythematous posterior oropharynx) present. Eyes: Pupils: Pupils are equal, round, and reactive to light. Cardiovascular: Rate and Rhythm: Normal rate and regular rhythm. Pulses: Normal pulses. Heart sounds: Normal heart sounds. No murmur heard. Pulmonary: Effort: Pulmonary effort is normal. Breath sounds: Normal breath sounds. No wheezing, rhonchi or rales. Abdominal: General: Abdomen is flat. Bowel sounds are normal. There is no distension. Palpations: Abdomen is soft. Tenderness: There is no abdominal tenderness. Musculoskeletal: General: Normal range of motion. Cervical back: Normal range of motion and neck supple. Skin: General: Skin is warm and dry. Capillary Refill: Capillary refill takes less than 2 seconds. Neurological: General: No focal deficit present. Mental Status: He is alert and oriented to person, place, and time. Mental status is at baseline. Psychiatric: Mood and Affect: Mood normal. Behavior: Behavior normal. Thought Content: Thought content normal. Judgment: Judgment normal. Procedures ED Course: Lab Results (last 24 hours) Procedure Component Value Units Date/Time Comprehensive Metabolic Panel [[id number]] (Abnormal) Collected: 03/01/25 1639 Specimen: Blood Updated: 03/01/25 1701 Glucose 117 mg/dL BUN 10.4 mg/dL Creatinine 0.81 mg/dL Sodium 143 mmol/L Potassium 4.2 mmol/L Chloride 104 mmol/L CO2 25.0 mmol/L Calcium 9.7 mg/dL Total Protein 7.4 g/dL Albumin 4.6 g/dL ALT (SGPT) 33 U/L AST (SGOT) 20 U/L Alkaline Phosphatase 83 U/L Total Bilirubin 0.4 mg/dL Globulin 2.8 gm/dL A/G Ratio 1.6 g/dL BUN/Creatinine Ratio 12.8 Anion Gap 14.0 mmol/L eGFR 118.7 mL/min/1.73 Narrative: GFR Categories in Chronic Kidney Disease (CKD) GFR Category GFR (mL/min/1.73) Interpretation G1 90 or greater Normal or high (1) G2 60-89 Mild decrease (1) G3a 45-59 Mild to moderate decrease G3b 30-44 Moderate to severe decrease G4 15-29 Severe decrease G5 14 or less Kidney failure (1)In the absence of evidence of kidney disease, neither GFR category G1 or G2 fulfill the criteriafor CKD. eGFR calculation 2020 CKD-EPI creatinine equation, which does not include race as a factor CBC & Differential [[id number]] (Abnormal) Collected: 03/01/251638 Specimen: Blood Updated: 03/01/251644 Narrative: The following orders were created for panel order CBC & Differential. Procedure Abnormality Status --------- ------ CBC Auto Differential[[id number]] Abnormal Final result Please view results for these tests on the individual orders. CBC Auto Differential [[id number]] (Abnormal) Collected: 03/01/251638 Specimen: Blood Updated: 03/01/251644 WBC 12.31 10*3/mm3 RBC 5.46 10*6/mm3 Hemoglobin 15.8 g/dL Hematocrit 46.0 % MCV 84.2 fL MCH 28.9 pg MCHC 34.3 g/dL RDW 12.2 % RDW-SD 38.1 fl MPV 9.6 fL Platelets 239 10*3/mm3 Neutrophil % 77.6 % Lymphocyte % 12.1 % Monocyte % 7.2 % Eosinophil % 2.5 % Basophil % 0.4 % Immature Grans % 0.2 % Neutrophils, Absolute 9.55 10*3/mm3 Lymphocytes, Absolute 1.49 10*3/mm3 Monocytes, Absolute 0.89 10*3/mm3 Eosinophils, Absolute 0.31 10*3/mm3 Basophils, Absolute 0.05 10*3/mm3 Immature Grans, Absolute 0.02 10*3/mm3 XR Chest 1 View Result Date: 03/01/2025 XR CHEST 1 VW Date of Exam: 03/01/2025 5:39 PM EDT Indication: Pre-op Comparison: None available. Findings: No focal consolidation. Mild vascular congestion. No pneumothorax or pleural effusion. Cardiac size is normal. The visualized clavicles appear intact. No displaced rib fractures. The visualized upper abdomen is normal. Impression: Impression: Mild vascular congestion. Electronically Signed: Sanford Weiss MD 03/01/2025 5:53 PM EDT Workstation ID: [id number] MDM Amount and/or Complexity of Data Reviewed Clinical lab tests: reviewed Initial impression of presenting illness: Esophageal foreign body DDX: includes but is not limited to: Food bolus versus gastroenteritis versus esophageal dysmotility versus EOE Patient arrives private vehicle with vitals interpreted by myself. Pertinent features from physical exam: Posterior oropharynx is erythematous. Initial diagnostic plan: CBC, CMP, nitro and glucagon Results from initial plan were reviewed and interpreted by me revealing patient CBC and CMP are nonactionable Diagnostic information from other sources: N/A Interventions / Re-evaluation: Patient was given IV glucagon in addition to p.o. nitroglycerin. Patient attempted to chug a soda after with no success. Patient has continued to have vomiting and feels the foreign body sensation is still stuck in his throat. Medications sodium chloride 0.9 % flush 10 mL (has no administration in time range) sodium chloride 0.9 % bolus 500 mL (500 mL Intravenous New Bag 03/01/25 173) ondansetron (ZOFRAN) injection 4 mg (0 mg Intravenous Hold 03/01/25 173) glucagon (GLUCAGEN) injection 1 mg (1 mg Intravenous Given 03/01/25 1639) nitroglycerin (NITROSTAT) SL tablet 0.4 mg (0.4 mg Sublingual Given 03/01/25 1638) Results/clinical rationale were discussed with patient Consultations/Discussion of results with other physicians: Patient has been accepted to [facility] by Dr. Torres. Data interpreted: Nursing notes reviewed, vital signs reviewed. Labs independently interpreted by me (CBC, CMP). O2 saturation: 97% on room air Counseling: Discussed the results above with the patient regarding need for transfer. Patient understands and agrees plan of care. Patient is a 34-year-old male who presented to the emergency department today with concerns of a piece of a hotdog stuck in his esophagus. Patient states he was eating a hot dog prior to arrival and believes a piece is stuck in his throat. Patient feels that at the level of his hyoid bone. Patient states he had 1 episode of vomiting and vomited some small pieces without successful alleviation of the foreign body sensation. Patient states he has had problems swallowing meat for the past few years. Patient states he tried drinking both water and not do and has been unable and has spat it out. Patient cannot swallow any solids or liquids at this time. Patient CBC and CMP were nonactionable. A p reop x-ray was obtained at this time. Patient was given IV glucagon, p.o. nitroglycerin and attempted to chug a [place] without successful relief of the foreign body sensation. Patient immediately vomited afterwards. I spoke with [facility] in [place] and that the patient was excepted to be transferred to the emergency department to then go to their endoscopy suite via Dr. Torres. Patient was requesting to be transferred via private vehicle. Patient will be transferred via private vehicle. Patient informed he is not allowed to drive and his will drive him. Patient's wasinformed not to stop along the way and to go straight to the emergency department. Patient patient's voiced understanding the plan of care. Patient has not an aspiration risk at this time as he is able to spit and throw up without difficulty on his own. I have no concerns for decompensation during the short ride to [facility] in [place]. That being said patient and patient's were educated on concerning symptoms that require immediate call to 911. Patient requested to drive private vehicle and not be transferred via ambulance which he was offered. ----- ED Disposition ED Disposition Send to Specialty Department Condition -- Comment -- Final diagnoses: Foreign body in esophagus, initial encounter Dysphagia, unspecified type Your Follow-Up Providers Follow-up information has not been specified. Contact information for after-discharge care Follow-up information has not been specified. Your medication list ASK your doctor about these medications Instructions Last Dose Given Next Dose Due albuterol sulfate HFA 108 (90 Base) MCG/ACT inhaler Commonly known as: PROVENTIL HFA;VENTOLIN HFA;PROAIR HFA INHALE TWO PUFFS BY MOUTH EVERY 4-6 HOURS NEEDED FOR ASTHMA Davidai Aerosphere 160-9-4.8 MCG/ACT aerosol inhaler Generic drug: Khdbkqh-Bynfkyikvib-Ogaaonzept Inhale 2 puffs 2 (Two) Times a Day. cetirizine 10 MG tablet Commonly known as: zyrTEC Take 1 tablet by mouth Daily. fluticasone 50 MCG/ACT nasal spray Commonly known as: FLONASE 2 sprays by Each Nare route Daily. lamoTRIgine ER 200 MG tablet sustained-release 24 hour Take 200 mg by mouth Daily. lisinopril 5 MG tablet Commonly known as: PRINIVIL,ZESTRIL Take 1 tablet by mouth Daily. montelukast 10 MG tablet Commonly known as: SINGULAIR Take 1 tablet by mouth every night at bedtime. oxyCODONE-acetaminophen 5-325 MG per tablet Commonly known as: PERCOCET TAKE ONE TABLET BY MOUTH THREE TIMES DAILY MAY CAUSE DROWSINESS Testosterone Cypionate 200 MG/ML injection Commonly known as: DEPOTESTOTERONE CYPIONATE INJECT 1ml (200mg) INTRAMUSCULARLY EVERY 2 WEEKS Cosigned by Nirmal Desir MD at 03/01/2025 6:25 PM EDT Associated attestation - Nirmal Desir MD - 03/01/2025 6:25 PM EDT SHARED APC FACE TO FACE: I performed a substantive part of the MDM during the patient's E/M visit. I personally evaluated and examined the patient. I personally made or approved the documented management plan and acknowledge its risk of complications. and I personally discussed management/interpretation of the data with: Thalia Desir MD 03/01/2025 18:24 EDT documented in this encounter Plan of Treatment Upcoming Encounters Date Type Department Care Team (Late st Contact Info) Description 05/05/2025 9:00 AM EDT Appointment [facility] NONINVASIVE LAB [place] [address] [facility] [address] [place] [address] 06/24/2025 9:45 AM EST Office Visit [facility] C[facility] [address] [facility] [address] [place] [address] Regan Brown III, MD [facility] [address] [place] [address] documented as of this encounter Procedures Procedure Name Priority Date/Time Associated Diagnosis Comments XR CHEST 1 VW STAT 03/01/2025 5:48 PM EDT CBC WITH AUTO DIFFERENTIAL STAT 03/01/2025 4:39 PM EDT CBC AND DIFFERENTIAL STAT 03/01/2025 4:39 PM EDT COMPREHENSIVE METABOLIC PANEL STAT 03/01/2025 4:39 PM EDT documented in this encounter Results * XR Chest 1 View (03/01/2025 5:48 PM EDT) Anatomical Region Laterality Modality Body N/A Radiographic Denise ging 03/01/2025 5:51 PM EDT Impressions 03/01/2025 5:53 PM EDT Impression: Mild vascular congestion. Electronically Signed: Sanford Weiss MD 03/01/2025 5:53 PM EDT Workstation ID: [id number] Narrative 03/01/2025 5:53 PM EDT XR CHEST 1 VW Date of Exam: 03/01/2025 5:39 PM EDT Indication: Pre-op Comparison: None available. Findings: No focal consolidation. Mild vascular congestion. No pneumothorax or pleural effusion. Cardiac size is normal. The visualized clavicles appear intact. No displaced rib fractures. The visualized upper abdomen is normal. Procedure Note Sanford Weiss MD - 03/01/2025 XR CHEST 1 VW Date of Exam: 03/01/2025 5:39 PM EDT Indication: Pre-op Comparison: None available. Findings: No focal consolidation. Mild vascular congestion. Nopneumothorax or pleural effusion. Cardiac size is normal. The visualizedclavicles appear intact. No displaced rib fractures. The visualized upperabdomen is normal. IMPRESSION: Impression: Mild vascular congestion. Electronically Signed: Sanford Weiss MD 03/01/2025 5:53 PM EDT Workstation ID: [id number] us Thalia G Gato PA-C [facility] DIAGNOSTIC IMAGING O RDERABLES Final Result * (ABNORMAL) CBC Auto Differential (03/01/2025 4:39 PM EDT) WBC 12.31(H) 3.40 - 10.80 10*3/mm3 03/01/2025 4:45 PM EDT [facility] RBC 5.46 4.14 - 5.80 10*6/mm3 03/01/2025 4:45 PM EDT [facility] Hemoglobin 15.8 13.0 - 17.7 g/dL 03/01/2025 4:45 PM EDT [facility] Hematocrit 46.0 37.5 - 51.0 % 03/01/2025 4:45 PM EDT [facility] MCV 84.2 79.0 - 97.0 fL 03/01/2025 4:45 PM EDT [facility] MCH 28.9 26.6 - 33.0 pg 03/01/2025 4:45 PM EDT [facility] MCHC 34.3 31.5 - 35.7 g/dL 03/01/2025 4:45 PM EDT [facility] RDW 12.2(L) 12.3 - 15.4 % 03/01/2025 4:45 PM EDT [facility] RDW-SD 38.1 37.0 - 54.0 fl 03/01/2025 4:45 PM EDT [facility] MPV 9.6 6.0 - 12.0 fL 03/01/2025 4:45 PM EDT [facility] Platelets 239 140 - 450 10*3/mm3 03/01/2025 4:45 PM EDT [facility] Neutrophil % 77.6(H) 42.7 - 76.0 % 03/01/2025 4:45 PM EDT [facility] Lymphocyte % 12.1(L) 19.6 - 45.3 % 03/01/2025 4:45 PM EDT [facility] Monocyte % 7.2 5.0 - 12.0 % 03/01/2025 4:45 PM EDT [facility] Eosinophil % 2.5 0.3 - 6.2 % 03/01/2025 4:45 PM EDT [facility] Basophil % 0.4 0.0 - 1.5 % 03/01/2025 4:45 PM EDT [facility] Immature Grans % 0.2 0.0 - 0.5 % 03/01/2025 4:45 PM EDT [facility] Neutrophils, Absolute 9.55(H) 1.70 - 7.00 10*3/mm3 03/01/2025 4:45 PM EDT [facility] Lymphocytes, Absolute 1.49 0.70 - 3.10 10*3/mm3 03/01/2025 4:45 PM EDT [facility] Monocytes, Absolute 0.89 0.10 - 0.90 10*3/mm3 03/01/2025 4:45 PM EDT [facility] Eosinophils, Absolute 0.31 0.00 - 0.40 10*3/mm3 03/01/2025 4:45 PM EDT [facility] Basophils, Absolute 0.05 0.00 - 0.20 10*3/mm3 03/01/2025 4:45 PM EDT [facility] Immature Grans, Absolute 0.02 0.00 - 0.05 10*3/mm3 03/01/2025 4:45 PM EDT [facility] Blood Venipuncture / Unknown 03/01/2025 4:39 PM EDT 03/01/2025 4:43 PM EDT us Thalia Hoskins PA-C LAB BLOOD ORDERABLES Fin al Result [facility]
[address] [place] [address], * (ABNORMAL) Comprehensive Metabolic Panel (03/01/2025 4:39 PM EDT) Glucose 117(H) 65 - 99 mg/dL 03/01/2025 5:01 PM EDT [facility] BUN 10.4 6.0 - 20.0 mg/dL 03/01/2025 5:01 PM [facility] Creatinine 0.81 0.76 - 1.27 mg/dL 03/01/2025 5:01 PM [facility] Sodium 143 136 - 145 mmol/L 03/01/2025 5:01 PM [facility] Potassium 4.2 3.5 - 5.2 mmol/L 03/01/2025 5:01 PM [facility] Chloride 104 98 - 107 mmol/L 03/01/2025 5:01 PM [facility] CO2 25.0 22.0 - 29.0 mmol/L 03/01/2025 5:01 PM [facility] Calcium 9.7 8.6 - 10.5 mg/dL 03/01/2025 5:01 PM [facility] Total Protein 7.4 6.0 - 8.5 g/dL 03/01/2025 5:01 PM [facility] Albumin 4.6 3.5 - 5.2 g/dL 03/01/2025 5:01 PM [facility] ALT (SGPT) 33 1 - 41 U/L 03/01/2025 5:01 PM [facility] AST (SGOT) 20 1 - 40 U/L 03/01/2025 5:01 PM [facility] Alkaline Phosphatase 83 39 - 117 U/L 03/01/2025 5:01 PM [facility] Total Bilirubin 0.4 0.0 - 1.2 mg/dL 03/01/2025 5:01 PM [facility] Globulin 2.8 gm/dL 03/01/2025 5:01 PM [facility] A/G Ratio 1.6 g/dL 03/01/2025 5:01 PM [facility] BUN/Creatinine Ratio 12.8 7.0 - 25.0 03/01/2025 5:01 PM [facility] Anion Gap 14.0 5.0 - 15.0 mmol/L 03/01/2025 5:01 PM EDT [facility] eGFR 118.7 >60.0 mL/min/1.7 3 03/01/2025 5:01 PM EDT [facility] Blood Venipuncture / Unknown 03/01/2025 4:39 PM EDT 03/01/2025 4:43 PM EDT Narrative [facility] - 03/01/2025 5:01 PM EDT GFR Categories in Chronic Kidney Disease (CKD) GFR Category GFR (mL/min/1.73) Interpretation G1 90 or greater Normal or high (1) G2 60-89 Mild decrease (1) G3a 45-59 Mild to moderate decrease G3b 30-44 Moderate to severe decrease G4 15-29 Severe decrease G5 14 or less Kidney failure (1)In the absence of evidence of kidney disease, neither GFR category G1 or G2 fulfill the criteria for CKD. eGFR calculation 2020 CKD-EPI creatinine equation, which does not include race as a factor us Thalia Hoskins PA-C LAB BLOOD ORDERABLES [facility] al Result [facility]
[address] [place] [address], documented in this encounter Visit Diagnoses Diagnosis Foreign body in esophagus, initial encounter- Primary Dysphagia, unspecified type documented in this encounter Administered Medications Inactive Administered Medications - up to 3 most recent administrations Medication Order MAR Action Action Date Dose Rate Site glucagon (GLUCAGEN) injection 1 mg 1 mg, Intravenous, Once, On 03/01/25 at 1700, For 1 dose, Reconstitute powder for injection by adding 1 mL of business reporting developer-supplied sterile diluent or sterile water for injection to a vial containing 1 mg of the drug, to provide solutions containing 1 mg/mL. Shake vial gently to dissolve. Given 03/01/2025 4:39 PM EDT 1 mg nitroglycerin (NITROSTAT) SL tablet 0.4 mg 0.4 mg, Sublingual, Once, On 03/01/25 at 1700, For 1 dose, Make into paste and swallow then chug sylvain after May administer up to 3 doses per episode. Hold if SBP less than 100. Given 03/01/2025 4:38 PM EDT 0.4 mg sodium chloride 0.9 % bolus 500 mL 500 mL, Intravenous, at 500 mL/hr, Administer over 1 Hours, Once, On 03/01/25 at 1730, For 1 dose New Bag 03/01/2025 5:34 PM EDT 500 mL 500 mL/hr sodium chloride 0.9 % flush 10 mL 10 mL, Intravenous, As Needed, Line Care, Starting on 03/01/25 at 1631 documented in this encounter Active and Recently Administered Medications Times are shown in EDT. Scheduled Medication Order 02/27/2025 02/28/2025 03/01/2025 glucagon (GLUCAGEN) injection 1 mg (COMPLETED) 1 mg, Intravenous, Once, On 03/01/25 at 1700, For 1 dose, Reconstitute powder for injection by adding 1 mL of business reporting developer-supplied sterile diluent or sterile water for injection to a vial containing 1 mg of the drug, to provide solutions containing 1 mg/mL. Shake vial gently to dissolve. 1639 (Given - Provid er: Lopez Dewittedic) nitroglycerin (NITROSTAT) SL tablet 0.4 mg (COMPLETED) 0.4 mg, Sublingual, Once, On 03/01/25 at 1700, For 1 dose, Make into paste and swallow then chug sylvain after May administer up to 3 doses per episode. Hold if SBP less than 100. 1638 (Given - Provid er: Elaine Dewitt) ondansetron (ZOFRAN) injection 4 mg 4 mg, Intravenous, Once, On 03/01/25 at 1730, For 1 dose, If multiple N/V medications ordered, use in the following order: Ondansetron, Prochlorperazine, Promethazine. Use PO unless patient refuses or patient unable to swallow. 1735 (Hold - Provide r: Addis Zapata RN - Reason: Other) sodium chloride 0.9 % bolus 500 mL (COMPLETED) 500 mL, Intravenous, at 500 mL/hr, Administer over 1 Hours, Once, On 03/01/25 at 1730, For 1 dose 1734 (New Bag - Prov ider: Addis Zapata RN) PRN Medication Order 02/27/2025 02/28/2025 03/01/2025 sodium chloride 0.9 % flush 10 mL(Linked Group 1) 10 mL, Intravenous, As Needed, Line Care, Starting on 03/01/25 at 1631 Linked Groups Order Group 1: Insert Peripheral IV (CANCELED) STAT, Once, On 03/01/25 at 1632, For 1 occurrence And sodium chloride 0.9 % flush 10 mLJump to med 10 mL, Intravenous, As Needed, Line Care, Starting on 03/01/25 at 1631 documented in this encounter Care Teams Biophysics Professor Relationship Specialty Start Date End Date Jr Darryn Rios APRN [address] [place] [address] PCP - General Nurse Practitioner 02/06/25 documented as of this encounter
--- OUTSIDE RECORDS SUMMARY | 2025-03-01 19:08 | XMS_ITS | Encounter Summary ---
Author Organization [facility] Address [address] [place] [address] Care Team Providers Care Business Process Analyst Name Role Phone Jr Darryn Rios APRN Primary Care Prov ider Reason for Visit * Reason Comments FOOD BOLUS Encounter Details Date Type Department Care Team (Late st Contact Info) Description 03/01/2025 7:08 PM EDT - 03/01/2025 8:10 PM EDT Emergency [facility] EMERGENCY DEPARTMENT [address] [place] [address] Sriram Mcfadden MD [address] [place], [place] [id number] Foreign body in esophagus, subsequent encounter (Primary Dx); Dysphagia, unspecified type Discharge Disposition: Home or Self Care Social History Tobacco Use Types Packs/Day Years [...] Sign Reading Time Taken Comments Blood Pressure 128/77 03/01/2025 7:30 PM EDT Pulse 72 03/01/2025 7:30 PM EDT Temperature 36.7 C (98 F) 03/01/2025 7:10 PM EDT Respiratory Rate 16 03/01/2025 7:10 PM EDT Oxygen Saturation 96% 03/01/2025 7:30 PM EDT Inhaled Oxygen Concentration - - Weight 86.2 kg (190 lb) 03/01/2025 7:10 PM EDT Height 175.3 cm (5' 9 ) 03/01/2025 7:10 PM EDT Body Mass Index 28.06 03/01/2025 7:10 PM EDT documented in this encounter Functional Status * Calculated C-SSRS Risk Score (Lifetime/Recent) Answer Date of Assessment Author No Risk Indicated 03/01/2025 7:13 PM EDT Liz Banks, NELL * [place] Suicide Severity Rating Scale (Screener/Recent Self-Report) Question Answer Date of Assessment Author 1. Wish to be (Past 1 Month) No 025 7:13 PM EDT Liz Banks, RN 2. Non-Specific Active Suici margaret Thoughts (Past 1 Month) No 03/01/2025 7:13 PM EDT Liz Banks , RN 6. Suicidal Behavior (Lifetime) No 7:13 PM EDT Liz Banks, NELL documented as of this encounter Discharge Instructions * Discharge Instructions* Sharad Gibson PA - 03/01/2025 7:55 PM EDT Symptomatic care is recommended. Take all medications as prescribed and instructed. Follow up with gastroenterology as directed or return to Emergency Department with worsening of symptoms. * Attachments The following attachments cannot be sent through Care Everywhere. * Dysphagia Eating Plan Minced and Moist Foods ([place]) * Dysphagia Eating Plan Bite Size Food ([place]) * Dysphagia ([place]) documented in this encounter Medications at Time of Discharge [...] WEEKS 02/18/2025 documented as of this encounter ED Notes * Sharad Gibson PA - 03/01/2025 8:10 PM EDT EMERGENCY DEPARTMENT ENCOUNTER Pt Name: Gennaro Ma Pt : 1990 Room Number: 06/17 Date of encounter: 03/01/2025 PCP: Jr Darryn Rios APRN ED Provider: ISHMAEL Martinez Historian: Patient HPI: Chief Complaint: Food Bolus Context: Gennaro Ma is a 34 y.o. male who presents to the ED from ED at [facility] for a suspected food bolus. Per report from ED at [facility], Patient states he was eating a hot dog at around 1:45 PM when he felt it became stuck in his esophagus. At ED prior, stated that he had been unable to swallow water or Mountain Dew since. Patient has had 1 episode where he spit up some pieces of a hotdog but believed that he still has it stuck in his esophagus. Patient reports for the past 2 years he has had difficulty swallowing any type of meat products. Patient stateshe has never been diagnosed with GERD nor seeing a conical mixer for his esophageal issues. Patient denies any abdominal pain. Patient denies any constipation or diarrhea. Patient denies any fevers or chills. Patient admits to social tobacco and alcohol use. Patient states he also smokes marijuana. Since leaving the ED at [facility], patient has not experienced any vomiting. He is managing his own secretions. Complaints of pain and discomfort with swallowing. HPI REVIEW OF SYSTEMS A chief complaint appropriate review of systems was completed and is negative except as noted in the HPI. PAST MEDICAL HISTORY Past Medical History: Diagnosis Date COPD (chronic obstructive pulmonary disease) Myopericarditis Seasonal allergies STEMI (ST elevation myocardial infarction) PAST SURGICAL HISTORY Past Surgical History: Procedure Laterality Date VASECTOMY FAMILY HISTORY Family History Problem Relation Age of Onset Diabetes Father SOCIAL HISTORY Social History Socioeconomic History Marital status: Tobacco Use Smoking status: Former Types: Cigarettes Passive exposure: Past Smokeless tobacco: Current Types: Snuff Vaping Use Vaping status: Never Used Substance and Sexual Activity Alcohol use: Yes Comment: Socially Drug use: Yes Types: Marijuana Comment: Maybe once a week Sexual activity: Yes Partners: Female control/protection: Vasectomy ALLERGIES Patient has no known allergies. PHYSICAL EXAM Physical Exam Vitals and nursing note reviewed. Constitutional: General: He is not in acute distress. Appearance: Normal appearance. He is not ill-appearing or toxic-appearing. HENT: Head: Normocephalic and atraumatic. Nose: Nose normal. Mouth/Throat: Mouth: Mucous membranes are moist. Eyes: Extraocular Movements: Extraocular movements intact. Cardiovascular: Rate and Rhythm: Normal rate. Pulmonary: Effort: Pulmonary effort is normal. Breath sounds: Normal breath sounds. Musculoskeletal: General: Normal range of motion. Cervical back: Normal range of motion. Skin: General: Skin is warm and dry. Neurological: General: No focal deficit present. Mental Status: He is alert. Psychiatric: Mood and Affect: Mood normal. Behavior: Behavior normal. LAB RESULTS Results for orders placed or performed during the hospital encounter of 03/01/25 Comprehensive Metabolic Panel Collection Time: 03/01/25 4:39 PM Specimen: Blood Result Value Ref Range Glucose 117 (H) 65 - 99 mg/dL BUN 10.4 6.0 - 20.0 mg/dL Creatinine 0.81 0.76 - 1.27 mg/dL Sodium 143 136 - 145 mmol/L Potassium 4.2 3.5 - 5.2 mmol/L Chloride 104 98 - 107 mmol/L CO2 25.0 22.0 - 29.0 mmol/L Calcium 9.7 8.6 - 10.5 mg/dL Total Protein 7.4 6.0 - 8.5 g/dL Albumin 4.6 3.5 - 5.2 g/dL ALT (SGPT) 33 1 - 41 U/L AST (SGOT) 20 1 - 40 U/L Alkaline Phosphatase 83 39 - 117 U/L Total Bilirubin 0.4 0.0 - 1.2 mg/dL Globulin 2.8 gm/dL A/G Ratio 1.6 g/dL BUN/Creatinine Ratio 12.8 7.0 - 25.0 Anion Gap 14.0 5.0 - 15.0 mmol/L eGFR 118.7 >60.0 mL/min/1.73 CBC Auto Differential Collection Time: 03/01/25 4:39 PM Specimen: Blood Result Value Ref Range WBC 12.31 (H) 3.40 - 10.80 10*3/mm3 RBC 5.46 4.14 - 5.80 10*6/mm3 Hemoglobin 15.8 13.0 - 17.7 g/dL Hematocrit 46.0 37.5 - 51.0 % MCV 84.2 79.0 - 97.0 fL MCH 28.9 26.6 - 33.0 pg MCHC 34.3 31.5 - 35.7 g/dL RDW 12.2 (L) 12.3 - 15.4 % RDW-SD 38.1 37.0 - 54.0 fl MPV 9.6 6.0 - 12.0 fL Platelets 239 140 - 450 10*3/mm3 Neutrophil % 77.6 (H) 42.7 - 76.0 % Lymphocyte % 12.1 (L) 19.6 - 45.3 % Monocyte % 7.2 5.0 - 12.0 % Eosinophil % 2.5 0.3 - 6.2 % Basophil % 0.4 0.0 - 1.5 % Immature Grans % 0.2 0.0 - 0.5 % Neutrophils, Absolute 9.55 (H) 1.70 - 7.00 10*3/mm3 Lymphocytes, Absolute 1.49 0.70 - 3.10 10*3/mm3 Monocytes, Absolute 0.89 0.10 - 0.90 10*3/mm3 Eosinophils, Absolute 0.31 0.00 - 0.40 10*3/mm3 Basophils, Absolute 0.05 0.00 - 0.20 10*3/mm3 Immature Grans, Absolute 0.02 0.00 - 0.05 10*3/mm3 If labs were ordered, I independently reviewed the results and considered them in treating the patient. RADIOLOGY No orders to display [] Radiologist's Report Reviewed: I ordered and independently interpreted the above noted radiographic studies. See radiologist's dictation for official interpretation. PROCEDURES Procedures No orders to display MEDICATIONS GIVEN IN ER Medications - No data to display MEDICAL DECISION MAKING, PROGRESS, and CONSULTS Medical Decision Making 34-year-old nontoxic-appearing male presented to the ED from [facility] for gastroenterology evaluation of a suspected food bolus. On arrival, he was managing his own secretions, reporting only soreness when swallowing, with a patent airway and no respiratory distress. No further emesisoccurred since his prior ED visit. Due to uncertainty regarding an esophageal foreign body, a gastroenterology consult was placed. An oral challenge with soda was attempted, which the patient tolerated without emesis. After reviewing the workup from [facility] and my ED assessment with conical mixer, Dr. Jacobs determined no immediate intervention was needed. The patient was advised to follow-up outpatient for his history of dysphagia and recent esophageal foreign body. Discharge instructions included symptomatic care with liquids, advancing diet as tolerated, and thorough chewing before swallowing. The patient was discharged in stable condition with return precautions and a confirmed outpatient gastroenterology follow-up through secure messaging. Problems Addressed: Dysphagia, unspecified type: acute illness or injury Foreign body in esophagus, subsequent encounter: acute illness or injury Amount and/or Complexity of Data Reviewed External Data Reviewed: notes. Details: ED notes from [facility] reviewed as documented in HPI Discussion below represents my analysis of pertinent findings related to patient's condition, differential diagnosis, treatment plan and final disposition. Assessment includes with Differential diagnosis including but is not limited to: Bolus, dysphagia, esophageal reflux and trauma. Additional sources Discussed/ obtained information from independent historians: [] Spouse [] Parent [] Family member [] Friend [] EMS [] Other: External (non-ED) record review: [] Inpatient record: [] Office record: [] Outpatient record: [] Prior Outpatient labs: [] Prior Outpatient radiology: [] Primary Care record: [x] Outside ED record: [] Other: Patient's care impacted by: [] Diabetes [] Hypertension [] Hyperlipidemia [] Hypothyroidism [] Coronary Artery Disease [] Congestive Heart Failure [] COPD [] Cancer [] Obesity [] GERD [] Tobacco Abuse [] Substance Abuse [] Anxiety [] Depression [] Other: Care significantly affected by Social Determinants of Health (housing and economic circumstances, unemployment) [] Yes [x] No If yes, Patient's care significantly limited by Social Determinants of Health including: [] Inadequate housing [] Low income [] Alcoholism and drug addiction in family [] Problems related to primary support group [] Unemployment [] Problems related to employment [] Other Social Determinants of Health: ED Course: ED Course as of 03/01/252043 Sat Mar 01, [id number] I talked with the conical mixer prior to the patient's arrival. The patient was accepted in transfer from [facility] secondary to food bolus impaction. Patient will be transitioned to the endoscopy suite. [RS] 192 Vitals and Telemetry tracing was reviewed and directly interpreted by myself demonstrating blood pressure 138/108, temperature 98 ??F, heart rate 79, respirations 16 breaths minute and oxygen saturation 99% on room air [JG] 1922 BP(!): 138/108 [JG] 1922 Temp: 98 ??F (36.7 ??C) [JG] 1922 Heart Rate: 79 [JG] 1922 Resp: 16 [JG] 1922 SpO2: 99 % [JG] 1922 Patient seen and evaluated in the ED. I have consulted gastroenterology who is reported to be expecting patient [JG] 1947 Patient has been managing his secretions. I also performed a p.o. challenge with diet Coke andpatient was able to drink and manage a p.o. challenge. [JG] 1947 Case was reviewed with Dr. Jacobs and he recommended a p.o. challenge and that if patient could tolerate p.o. challenge as well as manage his secretions that he could be seen outpatient and would not require emergent intervention. [JG] 1958 On reassessment patient continues to be resting in position of comfort no acute distress. He has had no emesis. He is managing his secretions. He will follow-up outpatient with gastroenterology [J] ED Course User Index [JG] Sharad Gibson PA [RS] Nehemias Hawthorne MD DIAGNOSIS Final diagnoses: Foreign body in esophagus, subsequent encounter Dysphagia, unspecified type DISPOSITION ED Disposition ED Disposition Discharge Condition Stable Comment -- DISCHARGE Patient discharged in stable condition. Reviewed implications of results, diagnosis, meds, responsibility to follow up, warning signs and symptoms of possible worsening, potential complications and reasons to return to ER. Patient/Family voiced understanding of above instructions. Discussed plan for discharge, as there is no emergent indication for admission. Pt/family is agreeable and understands need for follow up and possible repeat testing. Pt/family is aware that discharge does not mean that nothing is wrong but that it indicates no emergency is currently present that requires admission and they must continue care with follow-up as given below or with a physician of their choice. FOLLOW-UP Enrrique Jacobs MD [address] [facility] [address] [address] Call on Monday morning to establish follow up with gastroenterology [facility] [address] [facility] [address] Go to If symptoms worsen Medication List No changes were made to your prescriptions during this visit. Sharad Gibson PA 03/01/252043 Cosigned by Sriram Mcfadden MD at 03/02/2025 12:29 AM EDT Associated attestation - Sriram Mcfadden MD - 03/02/2025 12:29 AM EDT SUPERVISE: For this patient encounter, I reviewed the APC's documentation, treatment plan, and medical decision making. Sriram Mcfadden MD 03/02/2025 00:29 EDT documented in this encounter Plan of Treatment Upcoming Encounters Date Type Department Care Team (Late st Contact Info) Description 05/05/2025 9:00 AM EDT Appointment [facility] NONINVASIVE LAB [place] [address] [facility] [address] [place] [phone] 06/24/2025 9:45 AM EST Office Visit [facility] CARD[facility]OLOG[facility] [address] [facility] [address] [place] [phone] Regan Brown III, MD [address] [place] [address] documented as of this encounter Visit Diagnoses Diagnosis Foreign body in esophagus, subsequent encounter- Primary Dysphagia, unspecified type documented in this encounter Care Teams Business Process Analyst Relationship Specialty Start Date End Date Jr Darryn Rios APRN [address] [place] [address] PCP - General Nurse Practitioner 02/06/25 documented as of this encounter
--- OUTSIDE RECORDS SUMMARY | 2025-03-19 09:00 | XMS_ITS | Encounter Summary ---
Author Organization [facility] Address [address] [place] [address] Care Team Providers Care Ceramics Technician Name Role Phone Jr Darryn Rios CREATIVE ARTS THERAPIST Primary Care Prov ider Encounter Details Date Type Department Care Team (Late st Contact Info) Description 03/19/2025 9:00 AM EDT Outside Facility Service [facility] GASTRO[facility]OLOGY [address] [phone] Enrrique Jacobs MD [address] [place] [address] Social History Tobacco Use Types Packs/Day Years [...] Info) Description 05/05/2025 9:00 AM EDT Appointment [facility] NONINVASIVE LAB [place] [address] [facility] [address] [place] [phone] 06/24/2025 9:45 AM EST Office Visit [facility] [address] [facility] [address] [place] [phone] Regan Brown III, MD [address] [place] [address] documented as of this encounter Visit Diagnoses Not on filedocumented in this encounter Care Teams Ceramics Technician Relationship Specialty Start Date End Date Jr Darryn Rios APRN [address] [place] [address] PCP - General Nurse Practitioner 02/06/25 documented as of this encounter
--- OUTSIDE RECORDS SUMMARY | 2025-04-27 10:08 | XMS_ITS | Clinical Summary ---
[facility] Address [address] [place] [address] Care Team Providers Care Vocational Rehabilitation Teacher Name Role Phone Jr Darryn Rios APRN Primary Care Prov ider Allergies No known active allergies Medications albuterol sulfate HFA 108 (90 Base) MCG/ACT inhaler INHALE TWO PUFFS BY MOUTH EVERY 4-6 HOURS NEEDED FOR ASTHMA 02/19/20 25 Active Breztri Aerosphere 160-9-4.8 MCG/ACT aerosol inhaler Inhale 2 puffs 2 (Two) Times a Day. 02/19/20 25 Active cetirizine (zyrTEC) 10 MG tablet Take 1 tablet by mouth Daily. 02/19/20 25 Active fluticasone (FLONASE) 50 MCG/ACT nasal spray 2 sprays by Each Nare route Daily. 11/26/19 25 Active lamoTRIgine ER 200 MG tablet sustained-releas e 24 hour Take 200 mg by mouth Daily. 02/19/20 25 Active lisinopril (PRINIVIL,ZESTRI L) 5 MG tablet Take 1 tablet by mouth Daily. 02/19/20 25 Active montelukast (SINGULAIR) 10 MG tablet Take 1 tablet by mouth every night at bedtime. 02/19/20 25 Active oxyCODONE-acetam inophen (PERCOCET) 5-325 MG per tablet TAKE ONE TABLET BY MOUTH THREE TIMES DAILY MAY CAUSE DROWSINESS 12/19/19 25 Active Testosterone Cypionate (DEPOTESTOTERONE CYPIONATE) 200 MG/ML injection INJECT 1ml (200mg) INTRAMUSCULARLY EVERY 2 WEEKS 02/19/20 25 Active esomeprazole (nexIUM) 40 MG capsuleIndicatio ns:Esophagitis, eosinophilic Take 1 capsule by mouth Daily. 30 capsule 5 03/21/20 25 Active Encounters Date Type Department Care Team Description 03/21/2025 Results Follow-Up [facility] [address] [place] [address] Enrrique Jacobs MD 03/19/2025 9:00 AM EDT Outside Facility Service [facility] [address] [facility] [address] [place] [address] Enrrique Jacobs MD 03/01/2025 7:08 PM EDT - 03/01/2025 8:10 PM EDT Emergency [facility] [address] [place] [address] Sriram Mcfadden MD Foreign body in esophagus, subsequent encounter (Primary Dx); Dysphagia, unspecified type Discharge Disposition: Home or Self Care 03/01/2025 4:23 PM EDT - 03/01/2025 7:05 PM EDT Emergency [facility] [address] [place] [address] Nirmal Desir MD Burton, Lindsey D, MD Foreign body in esophagus, initial encounter (Primary Dx); Dysphagia, unspecified type Discharge Disposition: [place] [facility] ([place]) 03/01/2025 Travel 02/25/2025 11:15 AM EDT Lab [facility] [address] [place] [address] Myopericarditis 02/25/2025 11:00 AM EDT Office Visit [facility] C[facility] [address] [place] [address] [address] [place] [address] Regan Brown III, MD Myopericarditis (Primary Dx) 02/25/2025 Travel from Last 3 Months Family History Medical History Relation Name Comments Diabetes Father Relation Name Status Comments Father Mother Alive Social History Tobacco Use Types Packs/Day Years Used Date Smoking Tobacco: Former Cigarettes Passive Smoke Exposure: Past Smokeless Tobacco: Current Snuff Tobacco Cessation:Ready to Q uit: Not Asked; Counseling Given: Not Answered Alcohol Use Standard Drinks/Week Comments Yes 0 [...] on file Sexual Orientation Not on file Last Filed Vital Signs Vital Sign Reading [...] Mass Index 28.06 03/01/2025 7:10 PM EDT Plan of Treatment Upcoming Encounters Date Type Department Care Team (Late st Contact Info) Description 05/05/2025 9:00 AM EDT Appointment [facility] [place] [address] [place] [address] 06/24/2025 9:45 AM EST Office [facility] [address] [place] [address] Regan Brown III, MD [address] [place] [address] Health Maintenance Due Date Last Done Comments TDAP/TD VACCINES (1 - Tdap) 2009 ANNUAL PHYSICAL 02/25/2025 HEPATITIS C SCREENING 02/25/2025 INFLUENZA VACCINE 03/07/2025 Pneumococcal Vaccine 0-49 Aged Out No longer eligible based on patient's age to complete this topic Procedures Procedure Name Priority Date/Time Associated Diagnosis Comments TISSUE PATHOLOGY EXAM Routine 03/19/2025 11:40 AM EDT Dysphagia, unspecified Other specified disease of esophagus Diaphragmatic hernia without obstruction or gangrene Gastro-esophageal reflux disease with esophagitis, without bleeding ENDOSCOPY, INT 03/19/2025 XR CHEST 1 VW STAT 03/01/2025 5:48 PM EDT CBC AND DIFFERENTIAL STAT 03/01/2025 4:39 PM EDT CBC WITH AUTO DIFFERENTIAL STAT 03/01/2025 4:39 PM EDT COMPREHENSIVE METABOLIC PANEL STAT 03/01/2025 4:39 PM EDT SEDIMENTATION RATE Routine 02/25/2025 11 :12 AM EDT Myopericarditis LIPOPROTEIN A (LPA) Routine 02/25/2025 1 1:12 AM EDT Myopericarditis ECG 12-LEAD Routine 02/25/2025 Myopericarditis from Last 3 Months Results * Tissue Pathology Exam (03/19/2025 11:40 AM EDT) Case Report Surgical Pathology Report Case: [id number] Authorizing Provider: Enrrique Jacobs MD Collected: 03/19/2025 11:40 AM Ordering Location: [facility] Received: 03/19/2025 04:52 PM LABORATORY Pathologist: Dipak Urbina MD Specimens: 1) - Esophagus, Distal 2) - Esophagus, Mid 03/21/2025 10:20 AM EDT [facility] Clinical Information Dysphagia, unspecified Other specified disease of esophagus Diaphragmatic hernia without obstruction or gangrene Gastro-esophageal reflux disease with esophagitis, without bleeding 03/21/2025 10:20 AM EDT [facility] Final Diagnosis 1. DISTAL ESOPHAGUS, BIOPSY: Squamocolumnar junctional mucosa with increased intraepithelial eosinophils, up to 36 per high-power field, and basal cell hyperplasia Negative for intestinal metaplasia See comment 2. MID ESOPHAGUS, BIOPSY: Squamous mucosa with increased intraepithelial eosinophils, up to 57 per high-power field, and basal cell hyperplasia See comment 03/21/2025 10:20 AM T [facility] at 1020 EDT Comment The findings fulfill the pathologic criteria for diagnosis of eosinophilic esophagitis 03/21/2025 10:20 AM EDT [facility] Gross Description 1. Esophagus, Distal. Received in formalin labeled distal esophagus are 2 sanchez soft tissue fragments aggregating 0.4 x 0.4 x 0.2 cm submitted entirely in a single cassette. 2. Esophagus, Mid. Received in formalin labeled midesophagus are 2 sanchez soft tissue fragments aggregating 0.4 x 0.4 x 0.2 cm submitted entirely in a single cassette. HDM 03/21/2025 10:20 AM T [facility] Microscopic Description The slides are reviewed and demonstrate histopathologic features supporting the above rendered diagnosis. 03/21/2025 10:20 AM EDT [facility] Tissue Structure of middle third of esophagus / Unknown 03/19/2025 11:40 AM EDT 03/19/2025 4:52 PM EDT Tissue specimen (specimen) Structure of middle third of esophagus / Unknown 03/19/2025 11:40 AM EDT 03/19/2025 4:52 PM EDT us Enrrique Jacobs MD PATHOLOGY/CYTOLOGY ORDERAB LES Final Result [facility]
[address] [place] [address], * Endoscopy, Int (03/19/2025) us Enrrique Jacobs MD INTERFACE NEEDS Final Resu lt * XR Chest 1 View (03/01/2025 5:48 PM EDT) Anatomical Region Laterality Modality Body N/A Radiographic Denise ging 03/01/2025 5:51 PM EDT Impressions 03/01/2025 5:53 PM EDT Impression: Mild vascular congestion. Electronically Signed: Sanford Weiss MD 03/01/2025 5:53 PM EDT Workstation ID: [id number] Narrative 03/01/2025 5:53 PM EDT XR CHEST [...] MD 03/01/2025 5:53 PM EDT Workstation ID: [id number] Thalia Renetta Gato [facility]NA[facility] IMG DIAGNOSTIC IMAGING O RDERABLES Final Result * (ABNORMAL) CBC Auto Differential (03/01/2025 4:39 PM EDT) WBC 12.31(H) 3.40 - 10.80 10*3/mm3 03/01/2025 4:45 PM EDT [facility] RBC 5.46 4.14 - 5.80 10*6/mm3 03/01/2025 4:45 PM EDT [facility] Hemoglobin 15.8 13.0 - 17.7 g/dL 03/01/2025 4:45 PM EDT [facility] Hematocrit 46.0 37.5 - 51.0 % 03/01/2025 4:45 PM EDT [facility] MCV 84.2 79.0 - 97.0 fL 03/01/2025 4:45 PM EDT [facility] MCH 28.9 26.6 - 33.0 pg 03/01/2025 4:45 PM EDT [facility] MCHC 34.3 31.5 - 35.7 g/dL 03/01/2025 4:45 PM EDT [facility] RDW 12.2(L) 12.3 - 15.4 % 03/01/2025 4:45 PM EDT [facility] RDW-SD 38.1 37.0 - 54.0 fl 03/01/2025 4:45 PM EDT [facility] MPV 9.6 6.0 - 12.0 fL 03/01/2025 4:45 PM EDT [facility] Platelets 239 140 - 450 10*3/mm3 03/01/2025 4:45 PM EDT [facility] Neutrophil % 77.6(H) 42.7 - 76.0 % 03/01/2025 4:45 PM EDT [facility] Lymphocyte % 12.1(L) 19.6 - 45.3 % 03/01/2025 4:45 PM EDT [facility] Monocyte % 7.2 5.0 - 12.0 % 03/01/2025 4:45 PM EDT [facility] Eosinophil % 2.5 0.3 - 6.2 % 03/01/2025 4:45 PM EDT [facility] Basophil % 0.4 0.0 - 1.5 % 03/01/2025 4:45 PM EDT [facility] Immature Grans % 0.2 0.0 - 0.5 % 03/01/2025 4:45 PM EDT [facility] Neutrophils, Absolute 9.55(H) 1.70 - 7.00 10*3/mm3 03/01/2025 4:45 PM EDT [facility] Lymphocytes, Absolute 1.49 0.70 - 3.10 10*3/mm3 03/01/2025 4:45 PM EDT [facility] Monocytes, Absolute 0.89 0.10 - 0.90 10*3/mm3 03/01/2025 4:45 PM EDT [facility] Eosinophils, Absolute 0.31 0.00 - 0.40 10*3/mm3 03/01/2025 4:45 PM EDT [facility] Basophils, Absolute 0.05 0.00 - 0.20 10*3/mm3 03/01/2025 4:45 PM EDT [facility] Immature Grans, Absolute 0.02 0.00 - 0.05 10*3/mm3 03/01/2025 4:45 PM EDT [facility] Blood Venipuncture / Unknown 03/01/2025 4:39 PM EDT 03/01/2025 4:43 PM EDT us Thalia Hoskins PA-C LAB BLOOD ORDERABLES Fin al Result [facility]
[address] [place] [address], * (ABNORMAL) Comprehensive Metabolic Panel (03/01/2025 4:39 PM EDT) Glucose 117(H) 65 - 99 mg/dL 03/01/2025 5:01 PM T [facility] BUN 10.4 6.0 - 20.0 mg/dL 03/01/2025 5:01 PM [facility] Creatinine 0.81 0.76 - 1.27 mg/dL 03/01/2025 5:01 PM EDT [facility] Sodium 143 136 - 145 mmol/L 03/01/2025 5:01 PM [facility] Potassium 4.2 3.5 - 5.2 mmol/L 03/01/2025 5:01 PM T [facility] Chloride 104 98 - 107 mmol/L 03/01/2025 5:01 PM [facility] CO2 25.0 22.0 - 29.0 mmol/L 03/01/2025 5:01 PM T [facility] Calcium 9.7 8.6 - 10.5 mg/dL 03/01/2025 5:01 PM [facility] Total Protein 7.4 6.0 - 8.5 g/dL 03/01/2025 5:01 PM T [facility] Albumin 4.6 3.5 - 5.2 g/dL 03/01/2025 5:01 PM [facility] ALT (SGPT) 33 1 - 41 U/L 03/01/2025 5:01 PM [facility] AST (SGOT) 20 1 - 40 U/L 03/01/2025 5:01 PM [facility] Alkaline Phosphatase 83 39 - 117 U/L 03/01/2025 5:01 PM [facility] Total Bilirubin 0.4 0.0 - 1.2 mg/dL 03/01/2025 5:01 PM [facility] Globulin 2.8 gm/dL 03/01/2025 5:01 PM [facility] A/G Ratio 1.6 g/dL 03/01/2025 5:01 PM [facility] BUN/Creatinine Ratio 12.8 7.0 - 25.0 03/01/2025 5:01 PM EDT [facility] Anion Gap 14.0 5.0 - 15.0 mmol/L 03/01/2025 5:01 PM EDT [facility] eGFR 118.7 >60.0 mL/min/1.7 3 03/01/2025 5:01 PM EDT [facility] Blood Venipuncture / Unknown 03/01/2025 4:39 PM EDT 03/01/2025 4:43 PM EDT Narrative [facility] - 03/01/2025 5:01 PM EDT GFR [...] PA-C LAB BLOOD ORDERABLES Fin al Result [facility]
[address] [place] [address], * Lipoprotein A (LPA) (02/25/2025 11:12 AM EDT) Lipoprotein (a) 43.8 <75.0 nmol/L 02/27/2025 9:10 AM EDT [facility] Comment: Note: Values greater than or equal to 75.0 nmol/L may indicate an independent risk factor for CHD, but must be evaluated with caution when applied to non- populations due to the influence of genetic factors on Lp(a) across ethnicities. Blood Venipuncture / Unknown 02/25/2025 11:12 AM EDT 02/25/2025 11:12 AM EDT Narrative [facility] - 02/27/2025 9:10 AM EDT Test(s) [id number] (a) was developed and its performance characteristics determined by [facility]. It has not been cleared or approved by the Food and Drug Administration. Performed at: [address] [id number] Dramatic Reader: Geo Barahona PhD, Phone: [phone] Regan Brown III, MD LAB BLOOD ORDERABLES Final Result [facility] [address] [place] [address], [place] [phone] * Sedimentation Rate (02/25/2025 11:12 AM EDT) Sed Rate 2 0 - 15 mm/hr 02/25/2025 11:33 PM EDT [facility] Blood Venipuncture / Unknown 02/25/2025 11:12 AM EDT 02/25/2025 11:12 AM EDT Regan Brown III, MD LAB BLOOD ORDERABLES Final Result [facility]
[address] [place] [address], [place] [phone] * ECG 12-LEAD (02/25/2025) Narrative 02/25/2025 Regan Brown III, MD 02/25/2025 11:11 AM ECG 12 Lead Date/Time: 02/25/2025 11:08 AM Performed by: Regan Brown III, MD Authorized by: Regan Brown III, MD Previous ECG: no previous ECG available Rhythm: sinus rhythm Clinical impression: normal ECG Procedure Note Regan Brown III, MD - 02/25/2025 11:00 AM EDT [facility] Card[facility] Consultation H&P Gennaor Ma 1990 There is no work phone number on file.. VISIT DATE: 02/25/2025 PCP: Jr Darryn Rios, EDGING MACHINE SETTER [address] [facility] [address] CC: Chief Complaint Patient presents with STEMI Previous cardiac studies and procedures: November 2024 ECG: Diffuse ST elevation, more prominent inferiorly LHC: Normal TTE: EF 50%. No pericardial effusion. ASSESSMENT: Diagnosis Plan 1. Myopericarditis Lipoprotein A (LPA) Sedimentation Rate Adult Transthoracic Echo Complete W/ Cont if Necessary Per Protocol ECG 12 Lead PLAN: Myopericarditis: COVID associated. EKG abnormalities have resolved.Asymptomatic. Status post 3 months of colchicine, recommending weaningoff over the next 2 weeks. Would not recommend initiation of Jardiance.Continue low-dose CURT inhibitor, may be able to discontinue if EF hasreturned to normal. Echo pending to reassess underlying myocardialstructure and function. ESR pending. Family history of precocious CAD: Unremarkable baseline lipid profile.LP(a) pending. History of Present Illness 34-year-[facility] revealed diffuse ST elevation, moreprominent inferiorly. An urgent cardiac catheterization revealed normalcoronary arteries. Transthoracic echo revealed EF of 50%. Cardiac MRIrevealed an EF of 48% and was consistent with mild myopericarditis.COVID-positive. He was started on a course of Indocin and colchicine.Chest discomfort has resolved. He did not tolerate low-dose beta-blockadedue to fatigue. Currently tolerating low-dose lisinopril. Bloodpressures running less than 120/80 mmHg. Denies dyspnea on exertion,chest pain or palpitations. Family history of early coronary disease inhis father. Unremarkable recent baseline lipid profile. PHYSICAL EXAMINATION: Vitals: 02/25/25 1047 BP: 116/76 BP Location: Left arm Patient Position: Sitting Cuff Size: Adult Pulse: 73 SpO2: 97% Weight: 86.3 kg (190 lb 3.7 oz) Height: 175.3 cm (69 ) General Appearance: Alert, cooperative, no distress, appears stated age Head: Normocephalic, without obvious abnormality, atraumatic Eyes: conjunctiva/corneas clear, EOM's intact, fundi benign, both eyes Ears: Normal TM's and external ear canals, both ears Nose: Nares normal, septum midline, mucosa normal, no drainage orsinus tenderness Throat: Lips, mucosa, and tongue normal; teeth and gums normal Neck: Supple, symmetrical, trachea midline, no adenopathy; thyroid: no enlargement/tenderness/nodules; no carotid bruit or JVD Back: Symmetric, no curvature, ROM normal, no CVA tenderness Lungs: Clear to auscultation bilaterally, respirations unlabored Chest Wall: No tenderness or deformity Heart: Regular rate and rhythm, S1 and S2 normal, no murmur, rub orgallop, normal carotid impulse bilaterally without bruit. Abdomen: Soft, non-tender, bowel sounds active all four quadrants, no masses, no organomegaly Extremities: Extremities normal, atraumatic, no cyanosis or edema Pulses: 2+ and symmetric all extremities Skin: Skin color, texture, turgor normal, no rashes or lesions Lymph nodes: Cervical, supraclavicular, and axillary nodes normal Neurologic: normal strength, sensation intact throughout Diagnostic Data: ECG 12 Lead Date/Time: 02/25/2025 11:08 AM Performed by: Regan Brown III, MD Authorized by: Regan Brown III, MD Previous ECG: no previous ECGavailable Rhythm: sinus rhythm Clinical impression: normal ECG No results found for: CHLPL , TRIG , HDL , LDLDIRECT No results found for: GLUCOSE , BUN , CREATININE , NA , K , CL , CO2 No results found for: HGBA1C No results found for: WBC , HGB , HCT , PLT PROBLEM LIST: There is no problem list on file for this patient. PAST MEDICAL HX Past Medical History: Diagnosis Date COPD (chronic obstructive pulmonary disease) Myopericarditis STEMI (ST elevation myocardial infarction) Allergies No Known Allergies Current Medications Current Outpatient Medications: albuterol sulfate HFA 108 (90 Base) MCG/ACT inhaler, INHALE TWO PUFFS BYMOUTH EVERY 4-6 HOURS NEEDED FOR ASTHMA, Disp: , Rfl: Breztri Aerosphere 160-9-4.8 MCG/ACT aerosol inhaler, Inhale 2 puffs 2(Two) Times a Day., Disp: , Rfl: cetirizine (zyrTEC) 10 MG tablet, Take 1 tablet by mouth Daily., Disp: ,Rfl: fluticasone (FLONASE) 50 MCG/ACT nasal spray, 2 sprays by Each [place]oute Daily., Disp: , Rfl: lamoTRIgine ER 200 MG tablet sustained-release 24 hour, Take 200 mg bymouth Daily., Disp: , Rfl: lisinopril (PRINIVIL,ZESTRIL) 5 MG tablet, Take 1 tablet by mouthDaily., Disp: , Rfl: montelukast (SINGULAIR) 10 MG tablet, Take 1 tablet by mouth every nightat bedtime., Disp: , Rfl: Testosterone Cypionate (DEPOTESTOTERONE CYPIONATE) 200 MG/ML injection,INJECT 1ml (200mg) INTRAMUSCULARLY EVERY 2 WEEKS, Disp: , Rfl: oxyCODONE-acetaminophen (PERCOCET) 5-325 MG per tablet, TAKE ONE TABLETBY MOUTH THREE TIMES DAILY MAY CAUSE DROWSINESS (Patient not taking:Reported on 02/25/2025), Disp: , Rfl: ROS ROS SOCIAL HX Social History Socioeconomic History Marital status: Tobacco Use Smoking status: Former Types: Cigarettes Passive exposure: Past Smokeless tobacco: Current Types: Snuff Vaping Use Vaping status: Never Used Substance and Sexual Activity Alcohol use: Yes Comment: Socially Drug use: Yes Types: Marijuana Comment: Maybe once a week Sexual activity: Yes Partners: Female control/protection: Vasectomy FAMILY HX Family History Problem Relation Age of Onset Diabetes Father Regan Brown III, MD, [facility] Regan Brown III, MD ECG ORDERABLES Final Resul t from Last 3 Months [facility] Care Teams Vocational Rehabilitation Teacher Relationship Specialty Start Date End Date Jr Darryn Rios APRN [address] [place] [address] PCP - General Nurse Practitioner 02/06/25
--- OUTSIDE RECORDS SUMMARY | 2025-04-27 10:08 | XMS_ITS | Encounter Summary ---
[facility] [address] [place] [address] Care Team Providers Care Test Fixture Designer Name Role Phone Jr Darryn Rios APRN Primary Care Prov ider Encounter Details Date Type Department Care Team (Latest Contact Info) Description 03/01/2025 Travel Social History Tobacco Use Types Packs/Day Years [...] on file documented as of this encounter Functional Status * Calculated C-SSRS Risk Score (Lifetime/Recent) Answer Date of Assessment Author No Risk Indicated 03/01/2025 7:13 PM EDT Liz Banks RN * [place] Suicide Severity Rating Scale (Screener/Recent Self-Report) Question Answer Date of Assessment Author 1. Wish to be (Past 1 Month) No 025 7:13 PM EDT Liz Banks, NELL 2. Non-Specific Active Suici margaret Thoughts (Past 1 Month) No 03/01/2025 7:13 PM EDT Liz Banks RN 6. Suicidal Behavior (Lifetime) No 7:13 PM EDT Liz Banks RN documented as of this encounter Plan of Treatment Upcoming Encounters Date Type Department Care Team (Late st Contact Info) Description 05/05/2025 9:00 AM EDT Appointment [facility] [place] [address] [place] [phone] 06/24/2025 9:45 AM EST Office Visit [facility] [address] [place] [phone] Regan Brown III, MD [address] [place] [address] documented as of this encounter Visit Diagnoses Not on filedocumented in this encounter Care Teams Test Fixture Designer Relationship Specialty Start Date End Date Jr Darryn Rios APRN [address] [place] [address] PCP - General Nurse Practitioner 02/06/25 documented as of this encounter
--- OUTSIDE RECORDS SUMMARY | 2025-04-27 10:08 | XMS_ITS | Encounter Summary ---
[facility] [address] [place] [address] Care Team Providers Care Ribbing Machine Operator Name Role Phone Jr Darryn Rios WORD PROCESSING SUPERVISOR Primary Care Prov ider Encounter Details Date Type Department Care Team (Late st Contact Info) Description 03/21/2025 Results Follow-Up [facility] [address] [place] [place] [phone] Enrrique Jacobs MD [address] [place] [address] Social History Tobacco Use Types Packs/Day Years [...] on file documented as of this encounter Progress Notes * Dickson Yuen RMA - 03/21/2025 2:21 PM EDT NO ANSWER; LEFT VOICE MESSAGE. I WILL SEND RESULTS TO MY CHART. documented in this encounter Plan of Treatment Upcoming Encounters Date Type Department Care Team (Late st Contact Info) Description 05/05/2025 9:00 AM EDT Appointment [facility] [place] [address] [place] [phone] 06/24/2025 9:45 AM EST Office Visit [facility] [address] [place] [phone] Regan Brown III, MD [address] [place], [place] [id number] documented as of this encounter Visit Diagnoses Not on filedocumented in this encounter Care Teams Ribbing Machine Operator Relationship Specialty Start Date End Date Jr Darryn Rios APRN [address] [place] [address] PCP - General Nurse Practitioner 02/06/25 documented as of this encounter
[2025-04-27 10:30] LABS: Hematocrit 47.5 % (42.0-52.0); Hemoglobin 16.5 g/dL (14.1-18.0); Immature Granulocytes % 0.3 %; Mean Corpuscular HGB Conc 34.7 g/dL (31.8-35.4); Mean Corpuscular Hemoglobin 29.2 pg (27.0-31.2); Mean Corpuscular Volume 83.9 fl (80-94); Nucleated Red Blood Cells % 0 %; Platelet Count 281 K/mm3 (142-424); Red Blood Count 5.66 M/mm3 (4.60-6.20); Red Cell Distribution Width-SD 37.7 fL; White Blood Count 5.9 K/mm3 (4.8-10.8)
[2025-04-27 11:21] LABS: Albumin Level 4.6 g/dl (3.5-5.0); Chloride 101 mmol/L (98-107)
[2025-04-27 11:22] LABS: Potassium 4.5 mmoL/L (3.5-5.1); Sodium 138 mmol/L (136-145)
[2025-04-27 11:24] LABS: Alanine Aminotransferase 29 U/L (12-78); Anion Gap 14.5 mEq/L (5-15); Aspartate Amino Transferase 25 U/L (17-59); Blood Urea Nitrogen 13 mg/dl (9-20); Carbon Dioxide 27 mmol/L (22.0-30.0); Creatinine,Serum 0.80 mg/dl (0.66-1.25); Estimated Glomerular Filt Rate 111 ml/min (>60); GFR (African American) 134 ML/MIN (>60)
[2025-04-27 11:25] LABS: Albumin/Globulin Ratio 1.7 (1.1-1.8); Alkaline Phosphatase 80 U/L (38-126); Bilirubin,Total 0.7 mg/dl (0.2-1.3); Calcium 9.5 mg/dl (8.4-10.2); Globulin 2.7 g/dL (1.3-3.2); Glucose 117 mg/dl (74-100); Total Protein,Serum 7.3 g/dl (6.3-8.2)
[2025-04-28 12:12] LABS: FSH 1.2 mIU/mL (1.5-12.4); LH 2.6 mIU/mL (1.7-8.6); Testosterone,Total 247 ng/dL (264-916)
== END 2025-04-27 23:59 | disposition home or self-care (01) ==
LOC: LAB 10:06
PROVIDERS: PCP Nurse Practitioner Family; Visit Provider Nurse Practitioner Family
DX: J45.40 Moderate persistent asthma, uncomplicated (principal); R79.89 Other specified abnormal findings of blood chemistry; Z86.79 Personal history of other diseases of the circulatory system
CPT/HCPCS: 36415; 80053; 83001; 83002; 84146; 84402; 84403; 85025

== ENCOUNTER 2025-05-07 15:11 | Outpatient (CLI) | payer BC, SELFPAY ==
--- OUTSIDE RECORDS SUMMARY | 2025-03-19 09:00 | XMS_ITS | Encounter Summary ---
Author Organization [facility] Address [address] [place] [address] Care Team Providers Care Attendant Arcade Name Role Phone Jr Darryn Rios UNIONMELT OPERATOR Primary Care Prov ider Encounter Details Date Type Department Care Team (Late st Contact Info) Description 03/19/2025 9:00 AM EDT Outside Facility Service [facility] GASTROENTEROLOGY [address] [phone] Enrrique Jacobs MD [address] [place] [address] Social History Tobacco Use Types Packs/Day Years [...] on file documented as of this encounter Plan of Treatment Upcoming Encounters Date Type Department Care Team (Late st Contact Info) Description 06/24/2025 9:45 AM EST Office Visit [facility] CARDIOLOGY [address] [place] [address] Regan Brown III, MD [address] [facility] [address] [place], [place] [phone] documented as of this encounter Visit Diagnoses Not on filedocumented in this encounter Care Teams Attendant Arcade Relationship Specialty Start Date End Date Jr Darryn Rios APRN [address] [place] [address] PCP - General Nurse Practitioner 02/06/25 documented as of this encounter
--- OUTSIDE RECORDS SUMMARY | 2025-05-05 08:52 | XMS_ITS | Encounter Summary ---
[facility] Address [address] [place] [address] Care Team Providers Care Chemical Engineering Technologist Name Role Phone Jr Darryn Rios PUBLISHING SPECIALIST Primary Care Prov ider Reason for Referral * Diagnostic Imaging (Routine) - Closed Specialty Diagnoses / Procedures Referred By Contac t Referred To Contact Diagnoses Myopericarditis Procedures Adult Transthoracic Echo Complete W/ Cont if Necessary Per Protocol [place] ECHO TTHRC R-T 2D W/WOM-MODE COMPL SPEC&COLR D AZ ECHO TRANSTHORC R-T 2D W/WO M-MODE REC F-UP/LMTD Regan Brown III, MD [address] [facility] [address] [address] Phone: tel: fax: [facility] [address] [place] [address] Phone: tel: Referral ID Status Reason Start Date Expiration Date Visits Re quested Visits Authorized [id number] Closed 02/25/2025 05/27/2026 1 1 Reason for Visit * Diagnostic Imaging (Routine) - Closed Specialty Diagnoses / Procedures Referred By Contac t Referred To Contact Diagnoses Myopericarditis Procedures Adult Transthoracic Echo Complete W/ Cont if Necessary Per Protocol [place] ECHO TTHRC R-T 2D W/WOM-MODE COMPL SPEC&COLR D AZ ECHO TRANSTHORC R-T 2D W/WO M-MODE REC F-UP/LMTD Regan Brown III, MD [address] [place] [address] Phone: tel: fax: [facility] [address] [place] [address] Phone: tel: Referral ID Status Reason Start Date Expiration Date Visits Re quested Visits Authorized [id number] Closed 02/25/2025 05/27/2026 1 1 Encounter Details Date Type Department Care Team (Latest Contact Info) Description 05/05/2025 8:52 AM EDT - 05/05/2025 11:59 PM EDT Hospital Encounter [facility] [place] [address] [place] [address] Myopericarditis Discharge Disposition: Home or Self Care Social [...] Sign Reading Time Taken Comments Blood Pressure - - Pulse - - Temperature - - Respiratory Rate - - Oxygen Saturation - - Inhaled Oxygen Concentration - - Weight 86.2 kg (190 lb) 05/05/2025 9:56 AM EDT Height 175.3 cm (5' 9.02 ) 05/05/2025 9:56 AM ED T Body Mass Index 28.05 05/05/2025 9:56 AM EDT documented in this encounter Medications at Time of Discharge albuterol sulfate HFA 108 (90 Base) MCG/ACT inhaler INHALE TWO PUFFS BY MOUTH EVERY 4-6 HOURS NEEDED FOR ASTHMA 5 Breztri Aerosphere 160-9-4.8 MCG/ACT aerosol inhaler Inhale 2 puffs 2 (Two) Times a Day. 5 cetirizine (zyrTEC) 10 MG tablet Take 1 tablet by mouth Daily. 5 esomeprazole (nexIUM) 40 MG capsuleIndication s:Esophagitis, eosinophilic Take 1 capsule by mouth Daily. 30 capsule 5 5 fluticasone (FLONASE) 50 MCG/ACT nasal spray 2 sprays by Each Nare route Daily. 5 lamoTRIgine ER 200 MG tablet sustained-release 24 hour Take 200 mg by mouth Daily. 5 lisinopril (PRINIVIL,ZESTRIL ) 5 MG tablet Take 1 tablet by mouth Daily. 5 montelukast (SINGULAIR) 10 MG tablet Take 1 tablet by mouth every night at bedtime. 5 oxyCODONE-acetami nophen (PERCOCET) 5-325 MG per tablet TAKE ONE TABLET BY MOUTH THREE TIMES DAILY MAY CAUSE DROWSINESS 5 Testosterone Cypionate (DEPOTESTOTERONE CYPIONATE) 200 MG/ML injection INJECT 1ml (200mg) INTRAMUSCULARLY EVERY 2 WEEKS 07/15/202 5 documented as of this encounter Plan of Treatment Upcoming Encounters Date Type Department Care Team (Late st Contact Info) Description 06/24/2025 9:45 AM EST Office Visit [facility] [address] [place] [address] Regan Brown III, MD [address] [place] [address] documented as of this encounter Procedures Procedure Name Priority Date/Time Associated Diagnosis Comments ECHO COMPLETE W/ DOPPLER AND COLOR FLOW Routine 05/05/2025 9:56 AM EDT Myopericarditis documented in this encounter Results * ECHO COMPLETE W/ DOPPLER AND COLOR FLOW (05/05/2025 9:56 AM EDT) EF(MOD-bp) 56.9 % LVIDd 5.0 cm LVIDs 3.3 cm IVSd 0.70 cm LVPWd 0.80 cm FS 33.3 % IVS/LVPW 0.88 cm ESV(cubed) 35.9 ml LV Sys Vol (BSA corrected) 16.2 cm2 EDV(cubed) 121.3 ml LV Hamilton Vol (BSA corrected) 36.2 cm2 LV mass(C)d 122.9 grams LVOT area 3.1 cm2 LVOT diam 2.00 cm EDV(MOD-sp2) 65.6 ml EDV(MOD-sp4) 73.0 ml ESV(MOD-sp2) 27.0 ml ESV(MOD-sp4) 32.8 ml SV(MOD-sp2) 38.6 ml SV(MOD-sp4) 40.2 ml SVi(MOD-SP2) 19.1 ml/m2 SVi(MOD-SP4) 19.9 ml/m2 SVi (LVOT) 27.9 ml/m2 EF(MOD-sp2) 58.8 % EF(MOD-sp4) 55.1 % MV E max son 56.8 cm/sec MV A max son 42.9 cm/sec MV dec time 0.22 sec MV E/A 1.32 IVRT 99.0 ms LA ESV Index (BP) 20.0 ml/m2 Med Peak E' Son 9.4 cm/sec Lat Peak E' Son 13.1 cm/sec Avg E/e' ratio 5.05 SV(LVOT) 56.4 ml RV Base 3.0 cm RV Mid 2.8 cm RV Length 7.2 cm RV S' 13.6 cm/sec LA dimension (2D) 3.2 cm LV V1 max 96.8 cm/sec LV V1 max PG 3.8 mmHg LV V1 mean PG 2.00 mmHg LV V1 VTI 18.0 cm Ao pk son 100.4 cm/sec Ao max PG 4.0 mmHg Ao mean PG 2.5 mmHg Ao V2 VTI 20.9 cm AYDIN(I,D) 2.7 cm2 Dimensionless Index 0.86 (DI) MV max PG 1.75 mmHg MV mean PG 1.00 mmHg MV V2 VTI 16.2 cm MVA(VTI) 3.5 cm2 MV dec slope 253.0 cm/sec2 PA V2 max 107.5 cm/sec PA acc time 0.16 sec Ao root diam 3.0 cm Ascending aorta 2.7 cm Anatomical Region Laterality Modality Ultrasound Narrative 05/05/2025 4:08 PM EDT Left ventricular systolic function is normal. Calculated left ventricular EF = 56.9% Left ventricular diastolic function was normal. Normal cardiac valves Left Ventricle Left ventricular systolic function is normal. Calculated left ventricular EF = 56.9% Normal left ventricular cavity size and wall thickness noted. All left ventricular wall segments contract normally. Left ventricular diastolic function was normal. Right Ventricle Normal right ventricular cavity size, wall thickness, systolic function and septal motion noted. Left Atrium Normal left atrial size and volume noted. Right Atrium Normal right atrial cavity size noted. Mitral Valve The mitral valve is structurally normal with no regurgitation or significant stenosis present. Tricuspid Valve The tricuspid valve is structurally normal with no significant regurgitation or significant stenosis present. Aortic Valve The aortic valve is structurally normal with no regurgitation or stenosis present. Pulmonic Valve The pulmonic valve is structurally normal with no regurgitation or significant stenosis present. Pericardium The pericardium is normal. There is no evidence of pericardial effusion. . Greater Vessels No dilation of the aortic root is present. The inferior vena cava is normally sized. Normal IVC inspiratory collapse of greater than 50% noted. Study Quality The study is technically adequate for diagnosis. us Regan Brown III, MD CV ECHO ORDERABLES Final Re sult documented in this encounter Visit Diagnoses Diagnosis Myopericarditis documented in this encounter Care Teams Chemical Engineering Technologist Relationship Specialty Start Date End Date Jr Darryn Rios APRN [address] [place] [address] PCP - General Nurse Practitioner 02/06/25 documented as of this encounter
--- OUTSIDE RECORDS SUMMARY | 2025-05-07 15:13 | XMS_ITS | Encounter Summary ---
[facility] Address [address] [place] [address] Care Team Providers Care Extension Service Supervisor Name Role Phone Jr Darryn Rios CMV DRIVER Primary Care Prov ider Encounter Details Date Type Department Care Team (Late st Contact Info) Description 03/21/2025 Results Follow-Up [facility] [address] [place] [phone] Enrrique Jacobs MD [address] [place] [address] Social History Tobacco Use Types Packs/Day Years [...] Description 06/24/2025 9:45 AM EST Office Visit [facility]IOLOG[facility] [address] [facility] [address] [place] [address] Regan Brown III, MD [address] [facility] [address] [place] [address] documented as of this encounter Visit Diagnoses Not on filedocumented in this encounter Care Teams Extension Service Supervisor Relationship Specialty Start Date End Date Jr Darryn Rios APRN [address] [place] [address] PCP - General Nurse Practitioner 02/06/25 documented as of this encounter
--- OUTSIDE RECORDS SUMMARY | 2025-05-07 15:14 | XMS_ITS | Encounter Summary ---
[facility] [address] [place] [address] Care Team Providers Care Shift Production Supervisor Name Role Phone Jr Darryn Rios APRN Primary Care Prov ider Encounter Details Date Type Department Care Team (Latest Contact Info) Description 05/05/2025 Travel Social History Tobacco Use Types Packs/Day [...] Description 06/24/2025 9:45 AM EST Office Visit [facility] [address] [facility] [address] [place] [address] Regan Brown III, MD [address] [facility] [address] [place] [address] documented as of this encounter Visit Diagnoses Not on filedocumented in this encounter Care Teams Shift Production Supervisor Relationship Specialty Start Date End Date Jr Darryn Rios APRN [address] [place] [address] PCP - General Nurse Practitioner 02/06/25 documented as of this encounter
--- OUTSIDE RECORDS SUMMARY | 2025-05-07 15:14 | XMS_ITS | Clinical Summary ---
[facility] [address] [place] [address] Care Team Providers Care Weight Analyst Name Role Phone Jr Darryn Rios [...] 1ml (200mg) INTRAMUSCULARLY EVERY 2 WEEKS 02/19/20 Active esomeprazole (nexIUM) 40 MG capsuleIndicatio ns:Esophagitis, eosinophilic Take 1 capsule by mouth Daily. 30 capsule 5 03/21/20 25 Active Encounters Date Type Department Care Team Description 05/06/2025 Results Follow-Up [facility] CARDIOLOG[facility] [address] [facility] [address] [place] [address] Regan Brown III, MD 05/05/2025 8:52 AM EDT - 05/05/2025 11:59 PM EDT Hospital Encounter [facility] NONINVASIVE LAB [place] [address] [facility] [address] [place] [phone] Myopericarditis Discharge Disposition: Home or Self Care 05/05/2025 Travel 03/21/2025 Results Follow-Up [facility] [address] [place] [address] Enrrique Jacobs MD 03/19/2025 9:00 AM EDT Outside Facility Service [facility] GASTROENTEROLOGY [address] [facility] [address] [place] [address] Enrrique Jacobs MD 03/01/2025 7:08 PM EDT - 03/01/2025 8:10 PM EDT Emergency [facility] EMERGENCY DEPARTMENT [address] [place] [address] Sriram Mcfadden MD Foreign body in esophagus, subsequent encounter (Primary Dx); Dysphagia, unspecified type Discharge Disposition: Home or Self Care 03/01/2025 4:23 PM EDT - 03/01/2025 7:05 PM EDT Emergency [facility] EMERGENCY DEPARTMENT DRUMS [address] [facility] [address] [place] [address] Nirmal Desir MD Burton, Lindsey D, MD Foreign body in esophagus, initial encounter (Primary Dx); Dysphagia, unspecified type Discharge Disposition: Short Term Hospital (SD) 03/01/2025 Travel 02/25/2025 11:15 AM EDT Lab [facility] [place] [address] [facility] [address] [place] [address] Myopericarditis 02/25/2025 11:00 AM EDT Office Visit [facility] [address] [facility] [address] [place] [address] Regan Brown III, MD Myopericarditis (Primary Dx) [...] Mass Index 28.05 05/05/2025 9:56 AM EDT Plan of Treatment Upcoming Encounters Date Type Department Care Team (Late st Contact Info) Description 06/24/2025 9:45 AM EST Office Visit [facility] CARDIOLOGY [address] [facility] [address] [place] [address] Regan Brown III, MD [address] [facility] [address] [place] [address] Health Maintenance Due Date Last Done Comments Pneumococcal Vaccine 0-49 (1 of 2 - PCV) 2009 TDAP/TD VACCINES (1 - Tdap) 2009 ANNUAL PHYSICAL 02/25/2025 HEPATITIS C SCREENING 02/25/2025 INFLUENZA VACCINE 03/07/2025 Procedures Procedure Name Priority Date/Time Associated Diagnosis Comments ECHO COMPLETE W/ DOPPLER AND COLOR FLOW Routine 05/05/2025 9:56 AM EDT Myopericarditis TISSUE PATHOLOGY EXAM Routine 03/19/2025 11:40 AM [...] Myopericarditis from Last 3 Months Results * ECHO COMPLETE W/ DOPPLER AND [...] MD CV ECHO ORDERABLES Final Re sult * Tissue Pathology Exam (03/19/2025 11:40 AM EDT) Case Report Surgical Pathology Report Case: [id number] Authorizing Provider: Enrrique Jacobs MD Collected: 03/19/2025 11:40 AM Ordering Location: [facility] Received: 03/19/2025 04:52 PM LABORATORY Pathologist: Dipak Urbina MD Specimens: 1) - Esophagus, Distal 2) - Esophagus, Mid 03/21/2025 10:20 AM EDT [facility] Clinical Information Dysphagia, unspecified Other specified disease of esophagus Diaphragmatic hernia without obstruction or gangrene Gastro-esophageal reflux disease with esophagitis, without bleeding 03/21/2025 10:20 AM EDT [facility] Final Diagnosis 1. DISTAL ESOPHAGUS, BIOPSY: Squamocolumnar junctional mucosa with increased intraepithelial eosinophils, up to 36 per high-power field, and basal cell hyperplasia Negative for intestinal metaplasia See comment 2. MID ESOPHAGUS, BIOPSY: Squamous mucosa with increased intraepithelial eosinophils, up to 57 per high-power field, and basal cell hyperplasia See comment 03/21/2025 10:20 AM T [facility] at 1020 EDT Comment The findings fulfill the pathologic criteria for diagnosis of eosinophilic esophagitis 03/21/2025 10:20 AM T [facility] Gross Description 1. Esophagus, Distal. Received in formalin labeled distal esophagus are 2 sanchez soft tissue fragments aggregating 0.4 x 0.4 x 0.2 cm submitted entirely in a single cassette. 2. Esophagus, Mid. Received in formalin labeled midesophagus are 2 sanchez soft tissue fragments aggregating 0.4 x 0.4 x 0.2 cm submitted entirely in a single cassette. HDM 03/21/2025 10:20 AM EDT [facility] Microscopic Description The slides are reviewed and demonstrate histopathologic features supporting the above rendered diagnosis. 03/21/2025 10:20 AM T [facility] Tissue Structure of middle third of esophagus / Unknown 03/19/2025 11:40 AM EDT 03/19/2025 4:52 PM EDT Tissue specimen (specimen) Structure of middle third of esophagus / Unknown 03/19/2025 11:40 AM EDT 03/19/2025 4:52 PM EDT us Enrrique Jacobs MD PATHOLOGY/CYTOLOGY ORDERAB LES Final Result [facility]
[address] [place] [address], * Endoscopy, Int (03/19/2025) us Enrrique Jacobs MD INTERFACE NEEDS Final Resu lt * XR Chest 1 View (03/01/2025 5:48 PM EDT) Anatomical Region Laterality Modality Body N/A Radiographic Denise ging 03/01/2025 5:51 PM EDT Impressions 03/01/2025 5:53 PM EDT Impression: Mild vascular congestion. Electronically Signed: Sanford Weiss MD 03/01/2025 5:53 PM EDT Workstation ID: [id number] Narrative 03/01/2025 5:53 PM EDT XR CHEST [...] MD 03/01/2025 5:53 PM EDT Workstation ID: [id number] us Thalia Hoskins PA-C IMG DIAGNOSTIC IMAGING O RDERABLES Final Result * (ABNORMAL) CBC Auto Differential (03/01/2025 4:39 PM EDT) WBC 12.31(H) 3.40 - 10.80 10*3/mm3 03/01/2025 4:45 PM EDT [facility] RBC 5.46 4.14 - 5.80 10*6/mm3 03/01/2025 4:45 PM EDT [facility] Hemoglobin 15.8 13.0 - 17.7 g/dL 03/01/2025 4:45 PM EDT [facility] Hematocrit 46.0 37.5 - 51.0 % 03/01/2025 4:45 PM EDT [facility] MCV 84.2 79.0 - 97.0 fL 03/01/2025 4:45 PM EDT [facility] MCH 28.9 26.6 - 33.0 pg 03/01/2025 4:45 PM EDT [facility] MCHC 34.3 31.5 - 35.7 g/dL 03/01/2025 4:45 PM EDT [facility] RDW 12.2(L) 12.3 - 15.4 % 03/01/2025 4:45 PM EDT [facility] RDW-SD 38.1 37.0 - 54.0 fl 03/01/2025 4:45 PM EDT [facility] MPV 9.6 6.0 - 12.0 fL 03/01/2025 4:45 PM EDT [facility] Platelets 239 140 - 450 10*3/mm3 03/01/2025 4:45 PM EDT [facility] Neutrophil % 77.6(H) 42.7 - 76.0 % 03/01/2025 4:45 PM EDT [facility] Lymphocyte % 12.1(L) 19.6 - 45.3 % 03/01/2025 4:45 PM EDT [facility] Monocyte % 7.2 5.0 - 12.0 % 03/01/2025 4:45 PM EDT [facility] Eosinophil % 2.5 0.3 - 6.2 % 03/01/2025 4:45 PM EDT [facility] Basophil % 0.4 0.0 - 1.5 % 03/01/2025 4:45 PM EDT [facility] Immature Grans % 0.2 0.0 - 0.5 % 03/01/2025 4:45 PM EDT [facility] Neutrophils, Absolute 9.55(H) 1.70 - 7.00 10*3/mm3 03/01/2025 4:45 PM EDT [facility] Lymphocytes, Absolute 1.49 0.70 - 3.10 10*3/mm3 03/01/2025 4:45 PM EDT [facility] Monocytes, Absolute 0.89 0.10 - 0.90 10*3/mm3 03/01/2025 4:45 PM EDT [facility] Eosinophils, Absolute 0.31 0.00 - 0.40 10*3/mm3 03/01/2025 4:45 PM EDT [facility] Basophils, Absolute 0.05 0.00 - 0.20 10*3/mm3 03/01/2025 4:45 PM EDT [facility] Immature Grans, Absolute 0.02 0.00 - 0.05 10*3/mm3 03/01/2025 4:45 PM EDT [facility] Blood Venipuncture / Unknown 03/01/2025 4:39 PM EDT 03/01/2025 4:43 PM EDT us Thalia Hoskins PA-C LAB BLOOD ORDERABLES Fin al Result [facility]
[address] [facility] [address] [place] [address], [place] * (ABNORMAL) Comprehensive Metabolic Panel (03/01/2025 4:39 PM EDT) [facility] Glucose 117(H) 65 - 99 mg/dL 03/01/2025 5:01 PM [facility] BUN 10.4 6.0 - 20.0 mg/dL 03/01/2025 5:01 PM [facility] Creatinine 0.81 0.76 - 1.27 mg/dL 03/01/2025 5:01 PM [facility] Sodium 143 136 - 145 mmol/L 03/01/2025 5:01 PM [facility] Potassium 4.2 3.5 - 5.2 mmol/L 03/01/2025 5:01 PM [facility] Chloride 104 98 - 107 mmol/L 03/01/2025 5:01 PM [facility] CO2 25.0 22.0 - 29.0 mmol/L 03/01/2025 5:01 PM [facility] Calcium 9.7 8.6 - 10.5 mg/dL 03/01/2025 5:01 PM [facility] Total Protein 7.4 6.0 - 8.5 g/dL 03/01/2025 5:01 PM [facility] Albumin 4.6 3.5 - 5.2 g/dL 03/01/2025 5:01 PM [facility] ALT (SGPT) 33 1 - 41 U/L 03/01/2025 5:01 PM [facility] AST (SGOT) 20 1 - 40 U/L 03/01/2025 5:01 PM [facility] Alkaline Phosphatase 83 39 - 117 U/L 03/01/2025 5:01 PM [facility] Total Bilirubin 0.4 0.0 - 1.2 mg/dL 03/01/2025 5:01 PM [facility] Globulin 2.8 gm/dL 03/01/2025 5:01 PM [facility] A/G Ratio 1.6 g/dL 03/01/2025 5:01 PM [facility] BUN/Creatinine Ratio 12.8 7.0 - 25.0 03/01/2025 5:01 PM EDT [facility] Anion Gap 14.0 5.0 - 15.0 mmol/L 03/01/2025 5:01 PM EDT [facility] eGFR 118.7 >60.0 mL/min/1.7 3 03/01/2025 5:01 PM EDT [facility] Blood Venipuncture / Unknown 03/01/2025 4:39 PM EDT 03/01/2025 4:43 PM EDT Narrative [facility] - 03/01/2025 5:01 PM EDT [...] PA-C LAB BLOOD ORDERABLES Fin al Result [facility]
[address] [place] [address], * Lipoprotein A (LPA) (02/25/2025 11:12 AM [...] AM EDT 02/25/2025 11:12 AM EDT Narrative [facility] - 02/27/2025 9:10 AM EDT Test(s) 393006-Mgstizlbepm (a) was developed and its performance characteristics determined by [facility]. It has not been cleared or approved by the Food and Drug Administration. Performed at: 01 - [address] [id number] Senior Research Fellow: Geo Barahona PhD, Phone: [phone] Regan Brown III, MD LAB BLOOD ORDERABLES Final Result [facility] [address] [place] [id number], [place] [phone] * Sedimentation Rate (02/25/2025 11:12 AM EDT) Sed Rate 2 0 - 15 mm/hr 02/25/2025 11:33 PM EDT [facility] Blood Venipuncture / Unknown 02/25/2025 11:12 AM EDT 02/25/2025 11:12 AM EDT Regan Brown III, MD LAB BLOOD ORDERABLES Final Result [facility]
[address] [place] [address], [place] [phone] * ECG 12-LEAD (02/25/2025) Narrative 02/25/2025 Regan Brown III, MD 02/25/2025 11:11 AM ECG 12 Lead Date/Time: 02/25/2025 11:08 AM Performed by: Regan Brown III, MD Authorized by: Regan Brown III, MD Previous ECG: no previous ECG available Rhythm: sinus rhythm Clinical impression: normal ECG Procedure Note Regan Brown III, MD - 02/25/2025 11:[address] [facility] Cardiology Consultation [facility]P Gennaro Ma 1990 There is no work phone number on file.. VISIT DATE: 02/25/2025 PCP: Jr Darryn Rios, MAXILLOFACIAL PATHOLOGY [address] [facility] [address] CC: Chief Complaint Patient presents with STEMI [...] 34-year-old [facility]. [facility] revealed diffuse ST [...] Diabetes Father Regan Brown III, MD, [facility] Regan Brown III, MD ECG ORDERABLES Final Resul t from Last 3 Months Insurance [employer] Care Teams Weight Analyst Relationship Specialty Start Date End Date Jr Darryn Rios, LIZ [address] [place] [address] PCP - General Nurse Practitioner 02/06/25
--- OUTSIDE RECORDS SUMMARY | 2025-05-07 15:14 | XMS_ITS | Encounter Summary ---
[facility] Address [address] [place] [address] Care Team Providers Care Rn Ostomy Name Role Phone Jr Darryn Rios PROGRAM SUPPORT CLERK Primary Care Prov ider Encounter Details Date Type Department Care Team (Late st Contact Info) Description 05/06/2025 Results Follow-Up [facility] [address] [facility] [address] [place] [id number] Regan Brown III, MD [address] [facility] [address] [place] [address] Social History Tobacco Use Types Packs/Day Years [...] Description 06/24/2025 9:45 AM EST Office Visit [facility] [address] [facility] [address] [place] [address] Regan Brown III, MD [address] [facility] [address] [place], [place] [id number] documented as of this encounter Visit Diagnoses Not on filedocumented in this encounter Care Teams Rn Ostomy Relationship Specialty Start Date End Date Jr Darryn Rios APRN [address] [place] [address] PCP - General Nurse Practitioner 02/06/25 documented as of this encounter
--- NOTE | 2025-05-07 15:15 | MR_ITS ---
PROCEDURE INFORMATION: Exam: MR Head Without and With Contrast Exam date and time: 05/07/2025 3:51 PM Age: 34 years old Clinical indication: Condition or disease; Other: Low testosterone; Additional info: Pituitart protocol/low testoterone TECHNIQUE: Imaging protocol: Magnetic resonance imaging of the head without and with contrast. Contrast material: ISOVUE; Contrast volume: 18 ml; Contrast route: IV; COMPARISON: No relevant prior studies available. FINDINGS: Brain: No acute infarct identified on the diffusion-weighted imaging. No evidence of brain parenchymal edema or intracranial mass effect. The T2 weighted imaging demonstrates a punctate focus of increased signal intensity in the right frontal lobe subcortical white matter. No enhancing brain pathology. Cerebral ventricles: Normal. No ventriculomegaly. Pituitary gland and sella: The pituitary gland appears normal in size. No differential contrast enhancement identified within the gland to be imaging evidence of a pituitary microadenoma. No parasellar or suprasellar masses. Bones: Unremarkable. Paranasal sinuses: [id number] frontoethmoid mucosal thickening. Mucosal thickening is moderate in the right maxillary sinus and mild in the left maxillary sinus. Mastoid air cells: Normal as visualized. No mastoid effusion. Orbital cavities: Unremarkable. Soft tissues: Unremarkable. IMPRESSION: No evidence of pituitary adenoma.
[2025-05-07] MEDS: 0.9 % SODIUM CHLORIDE 50 ML VIAL 10 ML IV (17:08)
[2025-05-07] MEDS: GADOTERIDOL INJ 20ML SYRINGE 18 ML IV (17:08)
== END 2025-05-07 23:59 | disposition home or self-care (01) ==
LOC: RAD 15:12
PROVIDERS: PCP Nurse Practitioner Family; Visit Provider Nurse Practitioner Family
DX: R79.89 Other specified abnormal findings of blood chemistry (principal)
CPT/HCPCS: 70553; A9576